=== PATIENT | female | born 1945 | race Caucasian/White ===

== ENCOUNTER 2018-03-22 12:38 | Observation (INO) | payer OTHER ==
--- NOTE | 2018-03-22 13:17 | ED PDOC ---
Arrival/HPI - General Chief Complaint: Trauma Time Seen by Provider: 03/22/18 13:08 Historian: Patient - History of Present Illness Narrative History of Present Illness (Text): 03/22/18 13:10 72 Year old female, whose PMH includes HTN, DM, anemia, and anxiety, who presents to the Emergency department complaining of multiple locations of musculoskeletal pain s/p trauma since 2 days ago. Patient reports tripping and falling landing on the left side of her body. She complaints of pain and bruises on the left side of face, pain on left side of rib cage, bruised right knee, and pain on right shoulder. Patient notes taking Aspirin daily and denies loss of consciousness. Patient denies any headache, chest pain, fever, vision changes, head trauma, neck pain. Denies hempotysis. Denies lightheadedness. Denies dizziness. Reports pain with deep breaths. PMD: Dr Cabezas 03/22/18 17:12 Time/Duration: < week Symptom Onset: Sudden Symptom Course: Unchanged Context: Tripped Past Medical History - Provider Review Nursing Documentation Reviewed: Yes - Infectious Disease Hx of Infectious Diseases: None - Cardiac Hx Cardiac Disorders: Yes Hx Hypertension: Yes - Pulmonary Hx Respiratory Disorders: No - Neurological Hx Neurological Disorder: No - HEENT Hx HEENT Disorder: Yes - Renal Other/Comment: Wears glasses - Endocrine/Metabolic Hx Endocrine Disorders: Yes Hx Diabetes Mellitus Type 2: Yes - Hematological/Oncological Hx Blood Disorders: Yes Hx Anemia: Yes - Integumentary Hx Dermatological Disorder: No - Musculoskeletal/Rheumatological Hx Musculoskeletal Disorders: No - Gastrointestinal Hx Gastrointestinal Disorders: No - Genitourinary/Gynecological Hx Genitourinary Disorders: No - Psychiatric Hx Psychophysiologic Disorder: Yes Hx Anxiety: Yes Hx Depression: Yes Hx Substance Use: No Family/Social History - Physician Review Nursing Documentation Reviewed: Yes Family/Social History: Unknown Family HX Smoking Status: Never Smoked Hx Alcohol Use: No Hx Substance Use: No Allergies/Home Meds Allergies/Adverse Reactions: Allergies No Known Allergies Allergy (Verified 03/22/18 12:47) Home Medications: Home Meds Medication Instructions Recorded Confirmed Aspirin [Aspirin Chewable] 81 mg PO DAILY 03/22/18 03/22/18 Carvedilol [Coreg] 25 mg PO BID 03/22/18 03/22/18 Enalapril/Hydrochlorothiazide 1 tab PO BID 03/22/18 03/22/18 [Enalapril-Hctz 5-12.5 mg Tab] GlipiZIDE [Glucotrol] 10 mg PO BID 03/22/18 03/22/18 Insulin Lispro [humALOG] 10 units INJ BID 03/22/18 03/22/18 MetFORMIN [glucoPHAGE] 1,000 mg PO BID 03/22/18 03/22/18 Simvastatin [Simvastatin] 10 mg PO HS 03/22/18 03/22/18 amLODIPine [Norvasc] 10 mg PO DAILY 03/22/18 03/22/18 Review of Systems - Review of Systems Constitutional: absent: Fevers Eyes: absent: Vision Changes Respiratory: Other (pain with deep breaths). absent: SOB, Cough Cardiovascular: Chest Pain (left sided chest/rib pain). absent: Edema, Calf Pain, JIANG Gastrointestinal: absent: Abdominal Pain, Nausea, Vomiting Genitourinary Female: absent: Dysuria Musculoskeletal: Other (pain on right shoulder, right knee, left side of face, left side of rib cage with ecchymosis). absent: Neck Pain Skin: absent: Rash Neurological: absent: Headache, Dizziness, Focal Weakness, Speech Changes Endocrine: absent: Diaphoresis Hemo/Lymphatic: absent: Easy Bleeding Physical Exam - Physical Exam Narrative Physical Exam (Text): 03/22/18 Head: Patient with ecchymosis to left orbit, abrasion to left lateral orbit, no bleeding, there is tenderness to left lateral orbit. Normocephalic. Eyes: PERRL. EOMI. Conjunctivae are not pale. Visual acuity and hastings intact. No proptosis. No jacobs with eye movements. No entrapment. ENT: Mucous membranes are moist and intact. Oropharynx is clear and symmetric. No nasal tenderness. No acute dental trauma. Neck: Supple. Full ROM. No JVD. No lymphadenopathy. No midline tenderness. Cardiovascular: Irregular rate and rhythm. No pathologic murmurs. Pulmonary/Chest: No evidence of respiratory distress. Clear to auscultation bilaterally. No wheezing, rales or rhonchi. Diffuse pain on palpation of left lower anterior rib cage, no crepitus or deformity. Abdominal: Soft and non-distended. There is no tenderness. No rebound, guarding, or rigidity. No organomegaly. Good bowel sounds. Back: No CVA tenderness. No midline tenderness. Extremities: Mild pain on palpation of right humerus region, no shoulder or elbow pain with palpation or range of motion. No clavicular pain. No left upper extremity pain. No hip pain with rom bilaterally. There is ecchymosis noted to right knee but no deformity, there is full range of motion of RIGHT knee with no pain. Left knee is tender anteriorly but NO swelling or ecchymosis noted to left knee. Skin: Skin is warm and dry. No petechiae. No purpura. No lacerations. Neurological: Alert, awake, and oriented. No facial droop. No slurred speech. Ambulatory. Motor and sensory exam intact. Psychiatric: Good eye contact. Normal interaction, affect, and behavior. 03/22/18 17:14 Vital Signs Reviewed: Yes Vital Signs Temp Pulse Resp BP Pulse Ox 03/22/18 17:00 86 18 116/65 98 03/22/18 15:18 91 H 18 118/69 98 03/22/18 13:03 98.2 F 105 H 18 121/75 98 Temperature: Afebrile Blood Pressure: Normal Pulse: Tachycardic Respiratory Rate: Normal Appearance: Positive for: Well-Appearing, Non-Toxic, Uncomfortable Pain Distress: Mild Mental Status: Positive for: Alert and Oriented X 3 Medical Decision Making ED Course and Treatment: Patient is present with friend. She reportedly fell two days ago. She lives by herself she states. She states she tripped and fell, landing on her left side. On exam, there is orbital ecchymosis but no acute visual symptoms, no signs of entrapment on exam or on CT. Patient also noted to have palpable left rib pain, but no crepitus, no pneumothorax or displaced fracture noted on chest xray as per radiologist. Not hypoxic. EKG reveals atrial fibrillation, rate controlled on monitor. She states that she is NOT aware that she has had this in the past. Attempt made to contact her PMD DR. Cabezas. Patient became more sob and tachypneic at 1630. On exam, saturations 99% although reports sob. Breath sounds were clear bilaterally. Heart rate 90-100. Plan to admit for possible new onset atrial fibrillation, rib injury, dyspnea. Currently neurologically intact. No signs of active bleeding. Will admit to oncall physician, consult cardiology and pulmonology. Dr. Hillary Alfaro, oncall, accepts admission, will consult Dr. Dunaway. Heparin ordered for atrial fibrillation. No active bleeding noted. CT chest, no pneumothorax noted. 03/22/18 18:18 - Lab Interpretations Lab Results: 03/22/18 13:30 03/22/18 13:30 Lab Results 03/22/18 13:30: NT-Pro-B Natriuret Pep 940 H 03/22/18 13:30: Sodium 139, Potassium 4.3, Chloride 103, Carbon Dioxide 24, Anion Gap 17, BUN 17, Creatinine 0.9, Est GFR ( Amer) > 60, Est GFR (Non- Af Amer) > 60, Random Glucose 142 H, Calcium 9.5, Total Bilirubin 0.3, AST 23, ALT 23, Alkaline Phosphatase 57, Lactate Dehydrogenase 540, Total Creatine Kinase 112, Troponin I < 0.01, Total Protein 7.1, Albumin 4.3, Globulin 2.8, Albumin/Globulin Ratio 1.5 03/22/18 13:30: PT 12.3, INR 1.08, APTT 34.1 03/22/18 13:30: WBC 8.4, RBC 3.79, Hgb 10.3 L, Hct 31.9 L, MCV 84.2, MCH 27.2, MCHC 32.3, RDW 14.0, Plt Count 346, MPV 8.7, Gran % 69.2 H, Lymph % (Auto) 23.8 , [place] % (Auto) 4.8, Eos % (Auto) 2.0, Baso % (Auto) 0.2, Gran # 5.80, Lymph # ( Auto) 2.0, [place] # (Auto) 0.4, Eos # (Auto) 0.2, Baso # (Auto) 0.02 I have reviewed the lab results: Yes - RAD Interpretation Radiology Orders: 03/22/18 13:18 HEAD W/O CONTRAST [CT] Stat MAXILLOFACIAL W/O CONTRAST [CT] Stat 03/22/18 13:19 HUMERUS RIGHT [RAD] Stat KNEE LEFT 2 VIEWS (AP & LAT) [RAD] Stat RIBS LEFT & PA CHEST [RAD] Stat 03/22/18 15:08 CHEST W/O CONTRAST [CT] Stat Yarn Wrapper: Radiologist - EKG Interpretation EKG Interpretation (Text): EKG at 15:49 atrial fibrillation rate of 79, anterior infarct age undetermined Interpreted by ED Physician: Yes Type: 12 lead EKG - Medication Orders Current Medication Orders: Heparin Sodium/Sodium Chloride (Heparin 69469 Units/250ml 1/2 Normal Saline) 25 ,000 units in 250 mls @ 13.651 mls/hr IV .[id number] PRN; Protocol; 18 UNITS/KG/HR PRN Reason: ADJUST RATE PER PROTOCOL Discontinued Medications Heparin Sodium (Porcine) (Heparin) 4,000 units IV ONCE ONE PRN Reason: Protocol Stop: 03/22/18 17:59 - Scribe Statement The provider has reviewed the documentation as recorded by the Yoli De Los Santos Provider Scribe Attestation: All medical record entries made by the Scribe were at my direction and personally dictated by me. I have reviewed the chart and agree that the record accurately reflects my personal performance of the history, physical exam, medical decision making, and the department course for this patient. I have also personally directed, reviewed, and agree with the discharge instructions and disposition. Disposition/Present on Arrival - Present on Arrival Any Indicators Present on Arrival: No History of DVT/PE: No History of Uncontrolled Diabetes: No Urinary Catheter: No History of Decub. Ulcer: No History Surgical Site Infection Following: None - Disposition Have Diagnosis and Disposition been Completed?: Yes Diagnosis: Atrial fibrillation, Orbital contusion, Rib contusion, Knee contusion, Dyspnea Disposition: HOSPITALIZED Disposition Time: 16:45 Patient Plan: Admission, Telemetry Patient Problems: Current Active Problems Problem Status Onset Atrial fibrillation Acute Dyspnea Acute Knee contusion Acute Orbital contusion Acute Rib contusion Acute Condition: FAIR Forms: [employer] (Kyrgyz)
[2018-03-22 13:53] LABS: BASO # 0.02 K/mm3 (0.0-2.0); BASO % 0.2 % (0.0-3.0); EOS # 0.2 (0.0-0.7); GRAN # 5.8 (1.4-6.5); GRAN % 69.2 % (50.0-68.0); HEMOGLOBIN 10.3 g/dL (12.0-16.0); LYMPH % 23.8 % (22.0-35.0); MEAN CELL VOLUME 84.2 fl (80.0-105.0); MEAN CORPUSCULAR HEMOGLOBIN 27.2 pg (25.0-35.0); MEAN CORPUSCULAR HGB CONC 32.3 g/dl (31.0-37.0); MEAN PLATELET VOLUME 8.7 fl (7.0-11.0); MONO # 0.4 (0.1-0.6); MONO % 4.8 % (1.0-6.0); RBC 3.79 10^6/uL (3.5-6.1); WHITE BLOOD COUNT 8.4 10^3/ul (4.5-11.0)
[2018-03-22 13:58] LABS: ALB/GLOB RATIO 1.5 (1.1-1.8); ALBUMIN 4.3 g/dL (3.0-4.8); CALCIUM 9.5 mg/dL (8.4-10.5); GFR AFRICAN-AMERICAN > 60; GFR NON-AFRICAN AMERICAN > 60; INR 1.08 (0.93-1.08); PARTIAL THROMBOPLASTIN TIME 34.1 Seconds (25.1-36.5); PROTHROMBIN TIME 12.3 SECONDS (9.4-12.5)
[2018-03-22 14:01] LABS: ALT/SGPT 23 U/L (7-56); AST/SGOT 23 U/L (14-36); BLOOD UREA NITROGEN 17 mg/dL (7-21)
[2018-03-22 14:09] LABS: TROPONIN I < 0.01 ng/mL
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
--- NOTE | 2018-03-22 14:36 | CT ---
PROCEDURE: CT MAXILLOFACIAL BONES WITHOUT CONTRAST HISTORY: left orbital tenderness/ecchymosis COMPARISON: None TECHNIQUE: Contiguous axial CT images of the maxillofacial bones were obtained. Coronal and sagittal reformats were generated. Radiation dose: Total exam DLP = 697 mGy-cm. This CT exam was performed using one or more of the following dose reduction techniques: Automated exposure control, adjustment of the mA and/or kV according to patient size, and/or use of iterative reconstruction technique. FINDINGS: NASAL BONES: Unremarkable. ORBITS: There is some soft tissue thickening anterior to the left eye. There is no postseptal inflammation PARANASAL SINUSES/ MASTOIDS: Clear. MAXILLA: Unremarkable. MANDIBLE/ TEMPOROMANDIBULAR JOINTS: Unremarkable. SKULL BASE: Unremarkable. TEMPORAL BONES: Middle ears and mastoid grossly unremarkable. OTHER FINDINGS: None. IMPRESSION: Minimal preseptal soft tissue swelling left orbit. No evidence of fracture.
--- NOTE | 2018-03-22 15:14 | CARD ---
APPROVED REPORT EKG Measurement Heart [id number] <Conclusion> Atrial fibrillation Cannot rule out Anterior infarct, age undetermined Abnormal ECG
--- NOTE | 2018-03-22 15:22 | RAD ---
PROCEDURE: Left Knee Radiographs. HISTORY: Pain. COMPARISON: None. FINDINGS: BONES: Normal. No fracture. JOINTS: Normal. No osteoarthritis. JOINT EFFUSION: None. OTHER FINDINGS: None. IMPRESSION: Normal radiographs of the left knee.
--- NOTE | 2018-03-22 15:23 | RAD ---
PROCEDURE: Radiographs of the Chest and Left Ribs. HISTORY: left rib pain after fall COMPARISON: None available. TECHNIQUE: Frontal radiograph of the chest and multiple oblique radiographs of the left ribs were obtained. FINDINGS: LEFT RIBS: No fracture or focal lesion visualized. LUNGS: Clear. PLEURA: No pneumothorax or pleural fluid. CARDIOVASCULAR: Normal sized heart. No pulmonary vascular congestion. OTHER FINDINGS: None. IMPRESSION: Unremarkable radiographs of the chest and left ribs. No left rib fracture.
--- NOTE | 2018-03-22 15:23 | RAD ---
PROCEDURE: Radiographs of the right humerus. HISTORY: fall COMPARISON: None. FINDINGS: BONES: Normal. No fracture or focal lesion. SOFT TISSUES: Normal. OTHER FINDINGS: None. IMPRESSION: Normal radiographs of right humerus.
--- NOTE | 2018-03-22 17:50 | CT ---
PROCEDURE: CT Chest without contrast HISTORY: ? rib fx with effusion COMPARISON: None. TECHNIQUE: Contiguous axial images were obtained through the chest without intravenous contrast enhancement. Sagittal and coronal reconstructions were performed. Radiation dose (DLP): 583.10 mGy-cm. This CT exam was performed using one or more of the following dose reduction techniques: Automated exposure control, adjustment of the mA and/or kV according to patient size, and/or use of iterative reconstruction technique. FINDINGS: LUNGS: The lungs are well inflated. There is mild interlobular septal thickening and patchy ground-glass attenuation in the lungs. MEDIASTINUM: The aorta is not dilated. There is moderate cardiomegaly and trace pericardial effusion. There atherosclerotic calcifications in the coronary arteries. No pathologic lymphadenopathy. PLEURA: No pleural fluid. No pneumothorax. BONES: No acute rib fracture. No destructive lesion. UPPER ABDOMEN: Grossly unremarkable. OTHER FINDINGS: None. IMPRESSION: No acute rib fracture, pleural effusion or pneumothorax. Moderate cardiomegaly, trace pericardial effusion, mild interstitial edema and presumable mild alveolar pulmonary edema.
[2018-03-22] MEDS: Heparin25000 units/250ml 1/2NS 25,000 UNITS/250 ML BAG IV PRN (19:04)
--- NOTE | 2018-03-22 20:31 | CARD ---
APPROVED REPORT EKG Measurement Heart [id number] <Conclusion> Atrial fibrillation Abnormal ECG
[2018-03-22] MEDS: Insulin Reg-MEDIUM-Coverage SC SCH (23:18)
[2018-03-23 00:25] VITALS: BMI 29.0
[2018-03-23 06:38] LABS: HEMOGLOBIN 9.5 g/dL (12.0-16.0); MEAN CELL VOLUME 83.4 fl (80.0-105.0); MEAN CORPUSCULAR HEMOGLOBIN 26.7 pg (25.0-35.0); MEAN PLATELET VOLUME 8.7 fl (7.0-11.0); RBC 3.56 10^6/uL (3.5-6.1); RED CELL DISTRIBUTION WIDTH 13.8 % (11.5-14.5); WHITE BLOOD COUNT 6.9 10^3/ul (4.5-11.0)
[2018-03-23 06:43] LABS: ALB/GLOB RATIO 1.3 (1.1-1.8); ALBUMIN 3.7 g/dL (3.0-4.8); ALT/SGPT 28 U/L (7-56); AST/SGOT 27 U/L (14-36); BLOOD UREA NITROGEN 13 mg/dL (7-21); GFR AFRICAN-AMERICAN > 60; GFR NON-AFRICAN AMERICAN > 60
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
[2018-03-23] MEDS ORDERED: Potassium Chloride 20 mEq ER Tab PO ONE (07:45)
[2018-03-23] MEDS: Insulin Reg-MEDIUM-Coverage SC SCH ×4 (08:28→22:23)
--- NOTE | 2018-03-23 09:48 | CON ---
DATE: 03/23/2018 CARDIOLOGY CONSULTATION HISTORY OF PRESENT ILLNESS: The patient is a 72-year-old woman with a history of hypertension and diabetes mellitus who presents after a fall two days ago. No loss of consciousness noted. The patient complains of diffuse body aches. In the emergency room, she was found to be in atrial fibrillation. She denies previous cardiac history and has never been evaluated by a joiner helper. PAST MEDICAL HISTORY: Includes diabetes mellitus and hypertension. SOCIAL HISTORY: The patient does not smoke. REVIEW OF SYSTEMS: A 14-point review of systems is reviewed in detail. No cardiac symptomatology is noted. She does complain of incontinence of her urine. PHYSICAL EXAMINATION VITAL SIGNS: Stable. Heart rate is atrial fibrillation in the 80s. NECK: Negative JVD. LUNGS: Without rales. HEART: Reveals S1 and S2. EXTREMITIES: Without edema. EKG shows atrial fibrillation with nonspecific ST-T changes. LABORATORY DATA: Troponins are negative. IMPRESSION: 1. New-onset atrial fibrillation. 2. Status post fall. 3. Diabetes mellitus. 4. Hypertension. PLAN: Given these findings, we will start the patient on sotalol. We will review her x-rays before starting the patient on anticoagulation given her recent trauma. Thyroid functions have been ordered. Mihir Dunaway MD
[2018-03-23] MEDS ORDERED: [UNRECOGNIZED DRUG - OTHER] PO SCH (10:00)
[2018-03-23] MEDS ORDERED: HYDROCHLOROTHIAZIDE PO SCH (10:00)
[2018-03-23] MEDS ORDERED: ENALAPRIL PO SCH (10:00)
--- NOTE | 2018-03-23 10:08 | PN ---
DATE: 03/23/2018 SUBJECTIVE: I saw her resting comfortably this morning in bed. She is very nasty. She was nasty yesterday, she is still nasty. She is demanding things. I tried to calm her down. I am going to replace the potassium. I am waiting for Dr. Dunaway, the language arts teacher to come in. She has AFib, rate controlled. She is on Lipitor, Lasix, insulin coverage. She is on heparin drip, Glucotrol, Elavil, Coreg and aspirin. PHYSICAL EXAMINATION: VITAL SIGNS: Temperature 98.1, 91 pulse, 152/80 blood pressure, 20 respiratory rate, 100% O2 sat on room air. HEENT: Head is atraumatic, normocephalic. HEART: Irregular rate in the 80s. LUNGS: Decreased breath sounds, but clear. ABDOMEN: Soft. EXTREMITIES: No edema. She has got bruises from the fall, but nothing is broken. LABORATORY DATA: She has 143 sodium; potassium 3.5, I gave her potassium; BUN 13, creatinine 0.7. GFR is greater than 60. Sugar is 163, coming down. Calcium is 9, total bilirubin is 0.3, AST is 27, ALT is 28, alkaline phosphatase 57. All troponins are less than 0.01. BNP was 940. I put her on Lasix 20 IV daily, 6.5 albumin. She has a 6.9 white count, 9.5 hemoglobin, 29.7 hematocrit with 323 platelets. The EKG showed AFib, rate of 79. I will discuss with Dr. Dunaway after he sees her. She is on Observation right now. We will continue with aggressive treatment and care on Ophelia Braswell. I will wait for Physical Therapy to see her. She was here for falls. Now she has new-onset atrial fibrillation. Daniel Alfaro DO
[2018-03-23] MEDS: Insulin Lispro 1 UNITS/0.01 ML SC SCH ×2 (10:30→18:13)
[2018-03-23 11:20] LABS: INR 1.14 (0.93-1.08); PARTIAL THROMBOPLASTIN TIME 106.7 Seconds (25.1-36.5); PROTHROMBIN TIME 13.1 SECONDS (9.4-12.5)
--- NOTE | 2018-03-23 15:58 | CARD ---
APPROVED REPORT EXAM: Two-dimensional and M-mode echocardiogram with Doppler and color Doppler. INDICATION Atrial Fibrillation 2D DIMENSIONS Left Atrium (2D)5.7 (1.6-4.0cm)IVSd1.0 (0.7-1.1cm) LVDd4.9 (3.9-5.9cm)PWd1.3 (0.7-1.1cm) LVDs3.5 (2.5-4.0cm)FS (%) 29.8 % LVEF (%)56.6 (>50%) M-Mode DIMENSIONS Aortic Root3.00 (2.2-3.7cm)Aortic Cusp Exc.1.60 (1.5-2.0cm) Aortic Valve AoV Peak Ikmbrdvg519.0cm/Roverto Peak GR.9mmHg Mitral Valve E/A ratio0.0 TDI E/Lateral E'0.0E/Medial E'0.0 Pulmonary Valve PV Peak Vlfedlby63.1cm/sPV Peak Grad.2mmHg Tricuspid Valve TR Peak Iolgdiwc860fr/sRAP [id number] Peak Gr.34mmHg [id number] LEFT VENTRICLE The left ventricle is normal size. There is normal left ventricular wall thickness. The left ventricular function is normal. The left ventricular ejection fraction is within the normal range. There is normal LV segmental wall motion. RIGHT VENTRICLE The right ventricle is normal size. There is normal right ventricular wall thickness. The right ventricular systolic function is normal. ATRIA The left atrium is moderately dilated. The right atrium is mildly dilated. The atrial septum is aneurysmal. AORTIC VALVE The aortic valve is mildly thickened. No aortic regurgitation is present. There is no aortic valvular stenosis. MITRAL VALVE The mitral valve is moderately thickened. Mitral regurgitation is mild. There is no mitral valve stenosis. TRICUSPID VALVE The tricuspid valve is normal in structure. There is mild tricuspid regurgitation. There is mild pulmonary hypertension. PULMONIC VALVE There is trace to mild pulmonic valvular regurgitation. GREAT VESSELS The aortic root is normal in size. PERICARDIAL EFFUSION There is no pericardial effusion. <Conclusion> The left ventricle is normal size. There is normal left ventricular wall thickness. The left ventricular function is normal. The left ventricular ejection fraction is within the normal range. There is normal LV segmental wall motion. Mitral regurgitation is mild. There is mild tricuspid regurgitation. There is mild pulmonary hypertension.
[2018-03-23] MEDS: Heparin25000 units/250ml 1/2NS 25,000 UNITS/250 ML BAG IV PRN (21:01)
[2018-03-24 07:07] LABS: HEMOGLOBIN 10.3 g/dL (12.0-16.0); MEAN CELL VOLUME 83.7 fl (80.0-105.0); MEAN CORPUSCULAR HEMOGLOBIN 26.7 pg (25.0-35.0); MEAN CORPUSCULAR HGB CONC 31.9 g/dl (31.0-37.0); MEAN PLATELET VOLUME 8.9 fl (7.0-11.0); RBC 3.86 10^6/uL (3.5-6.1); WHITE BLOOD COUNT 10.1 10^3/ul (4.5-11.0)
[2018-03-24 07:42] LABS: ALB/GLOB RATIO 1.4 (1.1-1.8); ALBUMIN 3.9 g/dL (3.0-4.8); ALT/SGPT 25 U/L (7-56); AST/SGOT 20 U/L (14-36); BLOOD UREA NITROGEN 19 mg/dL (7-21); CALCIUM 9.2 mg/dL (8.4-10.5); GFR AFRICAN-AMERICAN > 60; GFR NON-AFRICAN AMERICAN > 60
[2018-03-24] MEDS: Insulin Reg-MEDIUM-Coverage SC SCH ×2 (08:23→11:56)
[2018-03-24 08:31] LABS: T4 10.1 ug/dL (5.5-11.0)
--- NOTE | 2018-03-24 08:40 | PN ---
DATE: 03/24/2018 CARDIOLOGY FOLLOWUP SUBJECTIVE: The patient is comfortable in bed. PHYSICAL EXAMINATION: VITAL SIGNS: Blood pressure is 128/73, the heart rate is in the 90s, atrial fibrillation. NECK: Negative JVD. LUNGS: Without rales. HEART: Reveals S1, S2. EXTREMITIES: Without edema. IMPRESSION: 1. Atrial fibrillation. 2. Hypertension. 3. Diabetes mellitus. 4. Dilated left atrium on echocardiogram. Given these findings, the patient will need to be started on Eliquis residential. It is discussed with the patient the risks, benefits of anticoagulation. From a cardiac perspective, the patient can be discharged after ambulation with physical therapy. We will arrange for an outpatient stress test to rule out CAD. Mihir Dunaway MD
[2018-03-24] MEDS ORDERED: Lidocaine 5% Patch TD ONE (09:00)
[2018-03-24] MEDS: Insulin Lispro 1 UNITS/0.01 ML SC SCH (09:55)
[2018-03-24 10:56] VITALS: O2SAT 100
[2018-03-24 11:55] VITALS: BP 125/68; PULSE 78; RESP 18; TEMP 98.2
--- NOTE | 2018-03-25 07:42 | DS ---
HISTORY OF PRESENT ILLNESS: I had a long discussion with Dr. Dunaway, the power tool repair technician, this morning. He is putting her on the sotalol and the Eliquis. She also has aspirin, Elavil, Glucophage, Glucotrol, the Humalog 10 units subcu b.i.d., potassium, Lasix, Lidoderm patch, Lipitor and Tylenol. PHYSICAL EXAMINATION: VITAL SIGNS: She has a 98.6 temp, 103 pulse, 128/73 blood pressure, 18 respiratory rate, 99% O2 sat. HEENT: Head is very traumatic with bruising that are healing. HEART: Irregular rate in the 80s. It was in the 100s. It goes up and down. LUNGS: Decreased breath sounds, but clear. ABDOMEN: Soft, nontender, positive bowel sounds. MUSCULOSKELETAL: The left side of the ribs are sore. The x-rays were negative. She has a Lidoderm patch to put over the ribs. EXTREMITIES: Have no edema. LABORATORY DATA: She has a 10.1 white count, 10.3 hemoglobin, 32.3 hematocrit with 377 platelets. She has a 141 sodium, potassium 3.9, BUN 19, creatinine 0.9, GFR is greater than 60, sugar is 159, is 9.2, total bili is 0.1, AST is 20, ALT is 25, alk phos 61, total protein 6.8. ASSESSMENT AND PLAN: We are discharging her home today. I called the prescriptions [facility] in [place] and she should follow up in 1 week with either me or her primary care doctor. Jamie Braswell who had atrial fibrillation, fall, contusions, and she has had diabetes. Daniel Alfaro DO MTDLupillo
== END 2018-03-24 14:35 | disposition home or self-care (01) ==
LOC: ED 12:38 → ERH 17:25 → 2RNO 21:36
PROVIDERS: ADMIT Family Medicine; ATTEND Family Medicine
DX: I48.91 Unspecified atrial fibrillation (principal); E11.9 Type 2 diabetes mellitus without complications; I10 Essential (primary) hypertension; D64.9 Anemia, unspecified; S05.10XA Contusion of eyeball and orbital tissues, unspecified eye, initial encounter; S20.219A Contusion of unspecified front wall of thorax, initial encounter; S80.02XA Contusion of left knee, initial encounter; W01.0XXA Fall on same level from slipping, tripping and stumbling without subsequent striking against object, initial encounter; Z79.82 Long term (current) use of aspirin; F41.9 Anxiety disorder, unspecified; F32.89 Other specified depressive episodes
CPT/HCPCS: 36415; 70450; 70486; 71101; 71250; 73060; 73560; 80053; 82550; 82948; 83615; 83880; 84436; 84443; 84484; 85025; 85027; 85610; 85730; 93005; 93306; 96374; 96375; 99285; G0378; J1644; J1940

== ENCOUNTER 2018-06-01 16:20 | Observation (INO) | payer OTHER ==
[2018-06-01 16:21] VITALS: BMI 29.2
[2018-06-01] MEDS ORDERED: Dextrose 50% SYRINGE Inj (50 ml) ONE (16:26)
[2018-06-01] MEDS ORDERED: Dextrose 50% SYRINGE Inj (50 ml) IVP STA (16:47)
--- NOTE | 2018-06-01 16:53 | ED PDOC ---
Arrival/HPI - History of Present Illness Time/Duration: Prior to Arrival Symptom Onset: Sudden Symptom Course: Unchanged Quality: Aching Severity Level: 4 Context: Walking <Flako Briceno - Last Filed: 06/01/18 18:50> <Ang Moy - Last Filed: 06/01/18 19:01> - General Chief Complaint: Syncope Time Seen by Provider: 06/01/18 16:25 - History of Present Illness Narrative History of Present Illness (Text): 06/01/18 16:51 Patient is a 73 year old female with PMH of DM2 (on metformin, glipizide, home insulin), Afib (on eliquis), HTN, and CVA who presents to ED following a syncopal episode at her home. Patient states that she does not remember falling and was walking around home when this occurred. She does not recall whether she hit her head, and her main complaint at this time is pain in her left knee. She states that she fell on to carpet in her home and was not able to get up when she woke up. She was also incontinent of urine after passing out. She felt weak and unable to stand up so she crawled to her neighbor's apartment for help who then called EMS. Prior to the syncopal episode, she had a doctor's appointment and so was unable to eat anything for lunch. Her last meal was around 0800 this morning (9 hoiurs ago). Currently, she is a/o x 3 and denies fever, chills, dizziness, blurred vision, HEMPHILL, CP, SOB, or peripheral numbness/tingling. (Flako Briceno) Past Medical History - Provider Review Nursing Documentation Reviewed: Yes - Travel History Have you recently traveled outside [place] w/in the past 3 mons?: No - Infectious Disease Hx of Infectious Diseases: None - Cardiac Hx Cardiac Disorders: Yes Hx Atrial Fibrillation: Yes Hx Hypertension: Yes - Pulmonary Hx Respiratory Disorders: No Other/Comment: dyspnea on exertion - Neurological Hx Neurological Disorder: No - HEENT Hx HEENT Disorder: Yes Hx Cataracts: Yes - Renal Hx Renal Disorder: No - Endocrine/Metabolic Hx Endocrine Disorders: Yes Hx Diabetes Mellitus Type 1: Yes (insulin dep) - Hematological/Oncological Hx Blood Disorders: Yes Hx Anemia: Yes - Integumentary Hx Dermatological Disorder: No - Musculoskeletal/Rheumatological Hx Musculoskeletal Disorders: Yes Hx Arthritis: Yes Hx Falls: No - Gastrointestinal Hx Gastrointestinal Disorders: Yes (abd pain) Hx Hemorrhoids: Yes - Genitourinary/Gynecological Hx Genitourinary Disorders: No - Psychiatric Hx Psychophysiologic Disorder: No Hx Substance Use: No - Surgical History Hx Cardiac Catheterization: Yes Other/Comment: wisdom teeth exctraction 1975 - Anesthesia Hx Anesthesia: Yes Hx Anesthesia Reactions: No Hx Malignant Hyperthermia: No <Flako Briceno - Last Filed: 06/01/18 18:50> Family/Social History - Physician Review Nursing Documentation Reviewed: Yes Family/Social History: Hypertension (father and mother), CAD/[place] (father and mother) Smoking Status: Never Smoked Hx Alcohol Use: No Hx Substance Use: No <Flako Briceno - Last Filed: 06/01/18 18:50> Allergies/Home Meds <Flako Briceno - Last Filed: 06/01/18 18:50> <Ang Moy - Last Filed: 06/01/18 19:01> Allergies/Adverse Reactions: Allergies No Known Allergies Allergy (Verified 01/27/18 21:13) Home Medications: Home Meds Medication Instructions Recorded Confirmed Amitriptyline HCl 75 mg PO HS 01/27/18 01/27/18 Insulin Glargine, Recombina 10 unit SC DAILY 01/27/18 01/27/18 [Lantus] Vitamin A 8,000 unit PO DAILY 01/27/18 01/27/18 Aspirin [Aspirin Chewable] 81 mg PO DAILY 03/22/18 03/22/18 Carvedilol [Coreg] 25 mg PO BID 03/22/18 03/22/18 Enalapril/Hydrochlorothiazide 1 tab PO BID 03/22/18 03/22/18 [Enalapril-Hctz 5-12.5 mg Tab] GlipiZIDE [Glucotrol] 10 mg PO BID 03/22/18 03/22/18 Insulin Lispro [humALOG] 10 units INJ BID 03/22/18 03/22/18 MetFORMIN [glucoPHAGE] 1,000 mg PO BID 03/22/18 03/22/18 Simvastatin [Simvastatin] 10 mg PO HS 03/22/18 03/22/18 amLODIPine [Norvasc] 10 mg PO DAILY 03/22/18 03/22/18 Review of Systems - Physician Review All systems were reviewed & negative as marked: Yes - Review of Systems Constitutional: absent: Fatigue, Fevers Eyes: absent: Vision Changes, Photophobia ENT: absent: Hearing Changes, Sore Throat, Rhinorrhea Respiratory: absent: SOB, Cough Cardiovascular: Syncope. absent: Chest Pain, JIANG Gastrointestinal: absent: Abdominal Pain, Nausea, Vomiting Genitourinary Female: Other (urinary incontinence). absent: Dysuria, Frequency Musculoskeletal: Other (left knee pain). absent: Arthralgias, Back Pain, Joint Swelling Skin: absent: Rash, Pruritis Neurological: absent: Headache, Dizziness, Speech Changes Endocrine: absent: Diaphoresis Hemo/Lymphatic: absent: Adenopathy Psychiatric: absent: Anxiety, Depression <Flako Briceno - Last Filed: 06/01/18 18:50> Physical Exam Vital Signs Reviewed: Yes Temperature: Afebrile Blood Pressure: Hypertensive (158/95) Pulse: Regular Respiratory Rate: Normal Appearance: Positive for: Non-Toxic, Comfortable Pain Distress: None Mental Status: Positive for: Alert and Oriented X 3 Finger Stick Blood Glucose: 54 - Systems Exam Head: Present: Atraumatic, Normocephalic Pupils: Present: PERRL Extroacular Muscles: Present: EOMI Conjunctiva: Present: Normal Ears: Present: Normal Mouth: Present: Moist Mucous Membranes Pharnyx: Present: Normal. No: ERYTHEMA, EXUDATE Nose (External): Present: Atraumatic Neck: Present: Normal Range of Motion. No: JVD Respiratory/Chest: Present: Clear to Auscultation. No: Wheezes, Rales, Rhonchi Cardiovascular: Present: Regular Rate and Rhythm, Normal S1, S2. No: Murmurs, Rub, Gallop Abdomen: No: Tenderness, Rebound, Guarding Back: Present: Normal Inspection Upper Extremity: Present: Normal Inspection. No: Cyanosis Lower Extremity: Present: Normal Inspection. No: Edema Neurological: Present: CN II-XII Intact, Speech Normal, Motor Func Grossly Intact, Normal Sensory Function Skin: Present: Warm, Dry Psychiatric: Present: Alert, Oriented x 3 <Flako Briceno - Last Filed: 06/01/18 18:50> Vital Signs Temp Pulse Resp BP Pulse Ox 06/01/18 16:21 98.1 F 91 H 18 158/95 H 98 Medical Decision Making - Transfer of Care Patient signed out to Dr:: Johnna <Flako Briceno - Last Filed: 06/01/18 18:50> - EKG Interpretation Interpreted by ED Physician: Yes Type: 12 lead EKG <Ang Moy - Last Filed: 06/01/18 19:01> ED Course and Treatment: 06/01/18 16:59 -Patient is presenting s/p syncopal episode with pain in left knee -Will get L knee xray along with CT head -CBC, CMP, UA, EKG -Patient admitted to not eating anything since 0800 this AM, fingerstick POC in ED was 56 -Amp of D50 given in ED upon arrival 06/01/18 18:39 -Patient refused CT head -Leukocytosis with banedemia noted, UA pending, CXR ordered 06/01/18 18:50 -CXR and knee xray without acute findings -Patient signed out to Dr. Oropeza (Flako Briceno) 06/01/18 Patient Seen With Resident: In agreement with resident note which contains more details about the patient. Patient was seen and evaluated with resident. Came up with plan and treatment together. 06/01/18 18:13 EKG shows Afib at 90 bpm. Q wave with less than 1mm elevation in lead III, which is similar to EKG on 03/22/18 . Interpreted by me. 06/01/18 18:14 Patient is refusing head CT because she didn't hit her head and doesn't have any headaches or pain. I explained risk to patient, which she understood and still refused. 06/01/18 18:59 UA negative for UTI. Troponin negative. CXR negative. WBC is elevated but no source of infection nor any fever so will recommend f/u WBC and observation. Patient's case discussed with Dr. Alfaro who will place on his service for Tele Obs for syncope. Consults requested for Cardiology Dr. Dunaway and Dr. Owens for Neurology. (Ang Moy) - Lab Interpretations Lab Results: 06/01/18 17:15 06/01/18 17:15 Lab Results 06/01/18 17:59: POC Glucose (mg/dL) 222 H 06/01/18 17:15: Sodium 142, Potassium 4.0, Chloride 103, Carbon Dioxide 24, Anion Gap 19, BUN 14, Creatinine 0.7, Est GFR ( Amer) > 60, Est GFR (Non- Af Amer) > 60, Random Glucose 207 H, Calcium 9.5, Magnesium 1.9, Total Bilirubin 0.4, AST 32, ALT 26, Alkaline Phosphatase 76, Total Protein 8.5 H, Albumin 4.8, Globulin 3.7, Albumin/Globulin Ratio 1.3 06/01/18 17:15: Urine Color Yellow, Urine Appearance Clear, Urine pH 7.5, Ur Specific [place] 1.020, Urine Protein 100 H, Urine Glucose (UA) 100 H, Urine Ketones Negative, Urine Blood Negative, Urine Nitrate Negative, Urine Bilirubin Negative, Urine Urobilinogen 0.2, Ur Leukocyte Esterase Negative, Urine RBC 0 - 2, Urine WBC 1 - 3, Ur Epithelial Cells 1 - 3, Amorphous Sediment Few, Urine Bacteria Many, Urine Other Uyeast 06/01/18 17:15: WBC 13.8 H D, RBC 4.96, Hgb 13.2 D, Hct 39.8, MCV 80.2 D, MCH 26.6, MCHC 33.2, RDW 14.7 H, Plt Count 414, MPV 8.8, Gran % 83.1 H, Lymph % ( Auto) 13.7 L, Crenshaw % (Auto) 2.7, Eos % (Auto) 0.3 L, Baso % (Auto) 0.2, Gran # 11.48 H, Lymph # (Auto) 1.9, Crenshaw # (Auto) 0.4, Eos # (Auto) 0.0, Baso # (Auto) 0.03 06/01/18 16:24: POC Glucose (mg/dL) 54 L - RAD Interpretation Radiology Orders: 06/01/18 16:46 KNEE LEFT 2 VIEWS (AP & LAT) [RAD] Stat 06/01/18 18:24 CXR [CHEST TWO VIEWS (PA/LAT)] [RAD] Stat - Medication Orders Current Medication Orders: Discontinued Medications Dextrose (Dextrose 50% Inj) 50 ml IVP STAT STA Stop: 06/01/18 16:48 Last Admin: 06/01/18 16:51 Dose: <Flako Briceno - Last Filed: 06/01/18 18:50> - Scribe Statement The provider has reviewed the documentation as recorded by the Scribe <Ang Moy - Last Filed: 06/01/18 19:01> - Scribe Statement Jeff Shauna Provider Scribe Attestation: All medical record entries made by the Scribe were at my direction and personally dictated by me. I have reviewed the chart and agree that the record accurately reflects my personal performance of the history, physical exam, medical decision making, and the department course for this patient. I have also personally directed, reviewed, and agree with the discharge instructions and disposition. (Ang Moy) Disposition/Present on Arrival - Present on Arrival Any Indicators Present on Arrival: Yes History of DVT/PE: No History of Uncontrolled Diabetes: Yes Urinary Catheter: No History of Decub. Ulcer: No History Surgical Site Infection Following: None - Disposition Have Diagnosis and Disposition been Completed?: Yes Disposition Time: 18:53 <Flako Briceno - Last Filed: 06/01/18 18:50> - Disposition Patient Plan: Observation <Ang Moy - Last Filed: 06/01/18 19:01> - Disposition Diagnosis: Fall, Neutrophilic leukocytosis, Syncope Disposition: HOSPITALIZED Patient Problems: Current Active Problems Problem Status Onset Fall Acute Neutrophilic leukocytosis Acute Condition: FAIR Discharge Instructions (ExitCare): Syncope (ED) Referrals: Bing Cabezas MD [Primary Care Provider] - Follow up with primary Forms: [employer] (Romansh)
[2018-06-01 18:20] LABS: ALB/GLOB RATIO 1.3 (1.1-1.8); ALBUMIN 4.8 g/dL (3.0-4.8); ALT/SGPT 26 U/L (7-56); AST/SGOT 32 U/L (14-36); BLOOD UREA NITROGEN 14 mg/dL (7-21); CALCIUM 9.5 mg/dL (8.4-10.5); GFR NON-AFRICAN AMERICAN > 60
[2018-06-01 18:21] LABS: BASO # 0.03 K/mm3 (0.0-2.0); BASO % 0.2 % (0.0-3.0); EOS % 0.3 % (1.5-5.0); GRAN # 11.48 (1.4-6.5); GRAN % 83.1 % (50.0-68.0); HEMOGLOBIN 13.2 g/dL (12.0-16.0); LYMPH # 1.9 (1.2-3.4); LYMPH % 13.7 % (22.0-35.0); MEAN CELL VOLUME 80.2 fl (80.0-105.0); MEAN CORPUSCULAR HEMOGLOBIN 26.6 pg (25.0-35.0); MEAN CORPUSCULAR HGB CONC 33.2 g/dl (31.0-37.0); MEAN PLATELET VOLUME 8.8 fl (7.0-11.0); MONO # 0.4 (0.1-0.6); MONO % 2.7 % (1.0-6.0); RBC 4.96 10^6/uL (3.5-6.1); RED CELL DISTRIBUTION WIDTH 14.7 % (11.5-14.5); WHITE BLOOD COUNT 13.8 10^3/ul (4.5-11.0)
[2018-06-01 18:38] LABS: PH,URINE 7.5 (4.7-8.0); URINE BILIRUBIN NEGATIVE (NEGATIVE); URINE BLOOD NEGATIVE (NEGATIVE); URINE GLUCOSE (UA) 100 mg/dL (NEGATIVE); URINE LEUKOCYTE ESTERASE NEGATIVE Leu/uL (NEGATIVE); URINE PROTEIN 100 mg/dL (<30 mg/dL); URINE UROBILINOGEN 0.2 E.U./dL (<1 E.U./dL)
[2018-06-01 18:47] LABS: URINE APPEARANCE CLEAR (CLEAR); URINE COLOR YELLOW (YELLOW)
[2018-06-01 18:50] LABS: URINE AMORPHOUS SEDIMENT FEW; URINE BACTERIA MANY (NEG); URINE RBC 0 - 2 /hpf (0-2)
[2018-06-01] MEDS ORDERED: Albuterol-Ipratrop 3 mg / 0.5 (3 ml) UD INH PRN (19:36)
--- NOTE | 2018-06-01 21:28 | CARD ---
APPROVED REPORT Date of service: 06/01/2018 EKG Measurement Heart [id number] <Conclusion> Atrial fibrillation Cannot rule out Inferior infarct, age undetermined Cannot rule out Anterior infarct, age undetermined Abnormal ECG
[2018-06-01] MEDS: Insulin Reg-MEDIUM-Coverage SC SCH (21:46)
[2018-06-01] MEDS ORDERED: ROSUVASTATIN CALCIUM 2.5 MG PO SCH (22:00)
[2018-06-01] MEDS ORDERED: AMITRIPTYLINE HCL 75 MG PO SCH (22:00)
[2018-06-02] MEDS: Pantoprazole 40 mg EC Tab PO SCH (05:03)
[2018-06-02 06:55] LABS: HEMOGLOBIN 10.9 g/dL (12.0-16.0); MEAN CELL VOLUME 80.1 fl (80.0-105.0); MEAN CORPUSCULAR HEMOGLOBIN 25.8 pg (25.0-35.0); MEAN CORPUSCULAR HGB CONC 32.2 g/dl (31.0-37.0); MEAN PLATELET VOLUME 8.8 fl (7.0-11.0); RBC 4.23 10^6/uL (3.5-6.1); RED CELL DISTRIBUTION WIDTH 14.9 % (11.5-14.5); WHITE BLOOD COUNT 8.8 10^3/ul (4.5-11.0)
[2018-06-02 07:19] LABS: ALB/GLOB RATIO 1.3 (1.1-1.8); ALBUMIN 3.8 g/dL (3.0-4.8); ALT/SGPT 20 U/L (7-56); AST/SGOT 24 U/L (14-36); BLOOD UREA NITROGEN 16 mg/dL (7-21); CALCIUM 9.2 mg/dL (8.4-10.5); GFR NON-AFRICAN AMERICAN > 60
[2018-06-02] MEDS: Budesonide 0.5 mg/2 ml Inhal Susp UD INH SCH ×2 (07:43→19:56)
[2018-06-02] MEDS: Insulin Reg-MEDIUM-Coverage SC SCH ×3 (07:58→17:03)
--- NOTE | 2018-06-02 09:37 | RAD ---
Date of service: 06/01/2018 PROCEDURE: Left Knee Radiographs. HISTORY: Pain. COMPARISON: None. FINDINGS: BONES: Normal. No fracture. JOINTS: Normal. No osteoarthritis. JOINT EFFUSION: None. OTHER FINDINGS: None. IMPRESSION: Normal radiographs of the left knee.
--- NOTE | 2018-06-02 09:38 | RAD ---
Date of service: 06/01/2018 HISTORY: hypoglycemia COMPARISON: No prior. FINDINGS: LUNGS: No active pulmonary disease. PLEURA: No significant pleural effusion identified, no pneumothorax apparent. CARDIOVASCULAR: Normal. OSSEOUS STRUCTURES: No significant abnormalities. VISUALIZED UPPER ABDOMEN: Normal. OTHER FINDINGS: None. IMPRESSION: No active disease.
[2018-06-02] MEDS: cefTRIAXone 1 gm 1 GM/100 ML BAG IVPB SCH (09:46)
--- NOTE | 2018-06-02 14:55 | CON ---
Copied To: Mihir Dunaway MD Attending MD: Mihir Dunaway MD DATE: 06/02/2018 HISTORY OF PRESENT ILLNESS: The patient is a 73-year-old woman with syncopal episode. The patient's past medical history includes diabetes mellitus, hypercholesterolemia as well as hypertension. She has chronic atrial fibrillation treated with anticoagulation which was stopped several days ago. She denies chest pain, denies shortness of breath. REVIEW OF SYSTEMS: Fraught with fatigue symptoms with no other cardiac symptomatology. The patient is very unaware of her own condition. PHYSICAL EXAMINATION: VITAL SIGNS: Blood pressure 130/88, heart rate is in the 90s, atrial fibrillation. Orthostatic measurements revealed no orthostatic blood pressure changes. NECK: Negative JVD. LUNGS: Without rales. HEART: S1, S2. EXTREMITIES: Without edema. Previous echocardiogram performed in 03/2018 revealed an ejection fraction of 56%. There was no aortic stenosis noted. There was mild pulmonary hypertension. LABORATORY DATA: Reveal the glucose is 257. BUN and creatinine are unremarkable. Hemoglobin is 10.9. IMPRESSION: 1. Syncope without an obvious cardiac cause. 2. No orthostatic changes on blood pressure measurements. 3. Fatigue. 4. Chronic atrial fibrillation. 5. Diabetes mellitus. 6. Hypertension. 7. Hypercholesterolemia. Given these findings, we may need to reduce her antihypertensive medications. There is no obvious cardiac cause of her syncope. We will monitor on telemetry for 24 hours. Mihir Dunaway MD
--- NOTE | 2018-06-02 16:43 | HP ---
Copied To: Daniel Alfaro DO Attending MD: Daniel Alfaro DO HISTORY OF PRESENT ILLNESS: I saw her this morning in her bed. She is a 73-year-old female who presents with syncopal episode. She does not remember what happened, she does not remember hitting her head, she does not remember she lost consciousness. She fell on the carpet, was not able to get up and she woke up. She was also incontinent of urine. After she passed out, she felt weak, called to the neighbor's apartment and called and got her here. PAST MEDICAL HISTORY: Atrial fibrillation, hypertension, dyspnea on exertion. She had cataract surgery, diabetes, anemia, arthritis, gastrointestinal disorders, abdominal pain, hemorrhoids, she had wisdom teeth extracted, cardiac cath. FAMILY HISTORY: Hypertension with her mother and father, CAD and DE in father and mother. SOCIAL HISTORY: Never smoked. No alcohol. No drugs. ALLERGIES: NO KNOWN DRUG ALLERGIES. MEDICATIONS: She is on amitriptyline, insulin, vitamin A, aspirin, Coreg, enalapril, hydrochlorothiazide, Glucotrol, insulin, Glucophage, simvastatin and Norvasc. REVIEW OF SYSTEMS: She is not fatigued. No fevers. No acute vision or hearing changes. No shortness of breath. No cough. She had a syncopal episode, but no chest pain. No shortness of breath. No palpitation. No abdominal pain, nausea, vomiting, or constipation. No problems urinating. She has left knee pain. She has arthralgias, I believe the x-ray of the knee was okay. No headaches, dizziness, or speech changes right now. No adenopathy. No depression. I understand they offered a CAT scan of the brain, which she refused. PHYSICAL EXAMINATION: GENERAL: She is nontoxic at this time, comfortable in bed. Alert and oriented x3. The blood sugar was low at 54 when she came into the Emergency Room. HEENT: Head is atraumatic, normocephalic. Extraocular muscles are intact. Pupils equal, reactive to light. Throat is moist. NECK: Supple. Normal range of motion. HEART: Regular rate. Normal S1 and S2. LUNGS: Decreased breath sounds. No wheezes. No rhonchi appreciated. ABDOMEN: Soft, nontender. Positive bowel sounds. No guarding. No rebound. No CVA tenderness. EXTREMITIES: She can move all four extremities although the knee hurts a little bit, that could be arthritis. No edema of the lower extremities. NEUROLOGIC: GCS is 15. Cranial nerves grossly intact. Speech is normal. Motor function grossly intact. Alert and oriented x3. LYMPHATICS: Thyroid midline. No palpable appreciable lymphadenopathy. LABORATORY DATA: Chest x-ray without acute findings. EKG showed atrial fibrillation. She refused CAT scan of the head. UA was negative for UTI. Troponin was negative. Chest x-ray negative. She had multiple tests. Urine with many bacteria, I do not know whether was negative. I am going to put her on Rocephin. She has 142 sodium, potassium 4, BUN 14, creatinine 0.7, GFR is greater than 60. Sugars are 207, 222, 249; I will put her back on her insulin. Calcium is 9.5, magnesium 1.9, total bili 0.4, AST is 32, ALT is 26, alk phos 76, albumin is 4.8. White count 13.8, hemoglobin 13.2, hematocrit 39.8, platelets of 414. Chest x-ray and knee x-ray, which that are pending. She has consults with Neurology and Cardiology. I will put her back on her medicine, make sure she gets the Rocephin and we will watch her. She has been on observation. We will see if we can get an MRI of the brain and she will let us do that. We will see what Cardio and Neuro has to say. She is here for syncope and UTI. Daniel Alfaro DO MTDD
[2018-06-02 17:44] VITALS: O2SAT 100
--- NOTE | 2018-06-03 04:24 | CON ---
Copied To: Adarsh Owens MD Attending MD: Adarsh Owens MD DATE: 06/02/2018 HISTORY OF PRESENT ILLNESS: This is a 73-year-old woman with episode of a syncopal episode and came to the hospital with a past medical history of diabetes, high cholesterol and hypertension, also had a chronic atrial fibrillation, which was stopped several days ago. REVIEW OF SYSTEMS: Feels okay except this syncopal episode. Review of the systems done. PHYSICAL EXAMINATION: HEENT: Normocephalic, atraumatic. NECK: Supple. NEUROLOGIC: Alert, awake, orientated x3. No aphasia. Cranial nerves II through XII were tested. Pupils reactive. EOM intact. Visual hastings full. No facial asymmetry. Tongue midline. Motor: Moves all the extremities equally. Tone normal. Deep tendon reflexes are 1+. Both plantars are downgoing. Sensory appears intact. Cerebellar, gait, deferred. IMPRESSION: Syncope, less likely seizure. PLAN: Ordered EEG and workup in progress. We will follow up. Adarsh Owens MD
[2018-06-03 06:39] LABS: HEMOGLOBIN 10.7 g/dL (12.0-16.0); MEAN CELL VOLUME 79.8 fl (80.0-105.0); MEAN CORPUSCULAR HEMOGLOBIN 25.5 pg (25.0-35.0); MEAN CORPUSCULAR HGB CONC 31.9 g/dl (31.0-37.0); MEAN PLATELET VOLUME 8.7 fl (7.0-11.0); RBC 4.2 10^6/uL (3.5-6.1); RED CELL DISTRIBUTION WIDTH 14.8 % (11.5-14.5)
[2018-06-03] MEDS: Budesonide 0.5 mg/2 ml Inhal Susp UD INH SCH (07:43)
[2018-06-03] MEDS: Pantoprazole 40 mg EC Tab PO SCH (07:49)
[2018-06-03] MEDS: Insulin Reg-MEDIUM-Coverage SC SCH (08:10)
[2018-06-03] MEDS: cefTRIAXone 1 gm 1 GM/100 ML BAG IVPB SCH (09:16)
[2018-06-03 11:57] VITALS: BP 149/84; PULSE 81; RESP 18; TEMP 98
--- NOTE | 2018-06-03 12:35 | MRI ---
Date of service: 06/02/2018 PROCEDURE: MRI BRAIN WITHOUT CONTRAST HISTORY: Syncope COMPARISON: Noncontrast head CT from 03/22/2018 TECHNIQUE: Multiplanar, multisequence MR images of the brain were obtained without intravenous contrast enhancement. FINDINGS: HEMORRHAGE: None DWI: No evidence of an acute or early subacute infarction. BRAIN PARENCHYMA: There are mild chronic microangiopathic changes. There is no mass, mass effect or abnormal extra-axial fluid collection. There is no territorial infarction. The midline sagittal structures are normal. VENTRICLES: There is mild age-related global parenchymal volume loss and proportionate enlargement of the ventricles and cortical sulci. CRANIUM: There is normal bone marrow signal pattern. There is mild hyperostosis frontalis interna ORBITS: Grossly unremarkable. PARANASAL SINUSES/MASTOIDS: Predominantly clear. VASCULAR SYSTEM: There are normal signal voids in the larger intracranial arteries. OTHER FINDINGS: None. IMPRESSION: No acute intracranial abnormality. Mild chronic microangiopathic changes and mild age-related global parenchymal volume loss.
--- NOTE | 2018-06-03 14:38 | DS ---
Copied To: Daniel Alfaro DO Attending MD: Daniel Alfaro DO HISTORY OF PRESENT ILLNESS: She is resting comfortably in bed, doing a lot better. She came in with syncopal episode, hypoglycemia, UTI, AFib and diabetes. She is doing a lot better, feels well. She is being seen by Cardio and Neurology. The MRI was done last night. The MRI of the brain was finally done, waiting for to be read. Chest x-ray with no active disease. PHYSICAL EXAMINATION: VITAL SIGNS: She has a 98.2 temp, 88 pulse, 136/69 blood pressure, 17 respiratory rate, 100% O2 sat. HEENT: Head is atraumatic, normocephalic. HEART: Regular rate. LUNGS: Decreased breath sounds, but clear. ABDOMEN: Soft. EXTREMITIES: No edema and she has no more symptoms. LABORATORY DATA: 7 white count, 10.7 hemoglobin, 33.5 hematocrit with 327 platelets. Last blood sugar was 154. She has a 139 sodium, potassium 3.8, BUN 16, creatinine 0.9, GFR is greater than 60, calcium is 9.2, total bili is 0.2, AST is 24, ALT is 20, alk phos 57, total protein 6.8. MEDICATIONS: She is on aspirin, Coreg, Detrol, DuoNebs, Elavil, Eliquis, Glucophage, Lipitor, Neurontin, Norvasc, Protonix, Pulmicort and Rocephin. ASSESSMENT AND PLAN: She could be discharged today once get the MRI read and if it is okay with Neurology, I will change her to Bactrim DS that she could take on the outpatient for her urinary tract infection. Continue with the other medications. She gets the Bactrim for another 5 days. She was here for syncope, knee pain, low blood sugar, urinary tract infection, atrial fibrillation and diabetes. Daniel Alfaro DO
--- NOTE | 2018-06-06 08:31 | EEG ---
Copied To: Celso Owens MD Attending MD: Celso Owens MD DATE: 06/02/2018 DIAGNOSIS: Syncope. CONDITION OF THE RECORDING: Drowsy. MEDICATIONS: Reviewed by nurse's reconciliation sheet. INTERPRETATION: This is a 16-channel [employer] recording. Background activity of this tracing was composed of 8-1/2 cycles per second. There was small amount of beta activity of 16-20 cycles per second seen in this recording. There was small amount of theta activity of 5-7 cycles per second seen in this tracing. Drowsiness was characterized by mixed beta and theta activities. The sleep was characterized by vertex transient waves, sleep spindles, and bilateral slowing. Photic stimulation showed no changes in the tracing. No paroxysmal activity was noted in this recording. CONCLUSION: This is a normal drowsy electroencephalogram. No evidence of any epileptiform activity. Please clinically correlate. Celso Owens MD
== END 2018-06-03 13:37 | disposition home or self-care (01) ==
LOC: ED 16:20 → ERH 20:07 → 2RSO 20:44
PROVIDERS: ADMIT Family Medicine; ATTEND Family Medicine
DX: R55 Syncope and collapse (principal); N39.0 Urinary tract infection, site not specified; E11.649 Type 2 diabetes mellitus with hypoglycemia without coma; I48.2 Chronic atrial fibrillation; I10 Essential (primary) hypertension; E78.00 Pure hypercholesterolemia, unspecified; R32 Unspecified urinary incontinence; Z86.73 Personal history of transient ischemic attack (TIA), and cerebral infarction without residual deficits
CPT/HCPCS: 36415; 70551; 71046; 73560; 80053; 81001; 82948; 83036; 83735; 85025; 85027; 93005; 94640; 94760; 95812; 96365; 96375; 97116; 97161; 97530; 99285; G0378; G8978; G8979; J0696

== ENCOUNTER 2018-08-12 15:51 | Emergency (ER) | payer OTHER ==
--- NOTE | 2018-08-12 16:13 | ED PDOC ---
Arrival/HPI - General Time Seen by Provider: 08/12/18 15:53 Historian: Patient, EMS - History of Present Illness Narrative History of Present Illness (Text): 08/12/18 16:08 73 y/o female, pmh including DM (insulin/metformin/glipizide)/a.fibb(eliquis)/htn/cva, nkda, biba for evaluation for hypoglycemia episode at the [facility]. Pt. recently had a new denture, stated that she took her usual morning oral DM medication which she had breakfast since, gave herself insulin injection later this afternoon without eating because she feels irritated with the new denture which she quickly became fatigue and glucose was being check, glucose check around 30s which they gave IV dextrose and her symptoms resolved. Pt. stated that she feels well, no headache or night sweat, no rash, no head/neck/back/chest/abdominal/extremity injury or pain, no dizziness, no change in vision, no palpitation, no urinary symptoms, no dizziness, no numbness or tingling, no other medical or psychological complaints. Past Medical History - Provider Review Nursing Documentation Reviewed: Yes - Infectious Disease Hx of Infectious Diseases: None - Cardiac Hx Cardiac Disorders: Yes (A fib) Hx Hypertension: Yes - Pulmonary Hx Respiratory Disorders: No Other/Comment: dyspnea on exertion - Neurological HX Cerebrovascular Accident: Yes - HEENT Hx Cataracts: Yes - Renal Hx Renal Disorder: No - Endocrine/Metabolic Hx Diabetes Mellitus Type 2: Yes (+ insulin) - Hematological/Oncological Hx Anemia: Yes - Integumentary Hx Dermatological Disorder: No - Musculoskeletal/Rheumatological Hx Arthritis: Yes Hx Falls: Yes - Gastrointestinal Hx Gastrointestinal Disorders: Yes (abd pain) Hx Hemorrhoids: Yes - Genitourinary/Gynecological Hx Genitourinary Disorders: No - Psychiatric Hx Anxiety: Yes Hx Depression: Yes Hx Substance Use: No - Surgical History Hx Cardiac Catheterization: Yes Other/Comment: wisdom teeth exctraction 1975 - Anesthesia Hx Anesthesia: Yes Hx Anesthesia Reactions: No Hx Malignant Hyperthermia: No Family/Social History - Physician Review Nursing Documentation Reviewed: Yes Family/Social History: Unknown Family HX Smoking Status: Never Smoked Hx Alcohol Use: No Hx Substance Use: No Allergies/Home Meds Allergies/Adverse Reactions: Allergies No Known Allergies Allergy (Verified 01/27/18 21:13) Home Medications: Home Meds Medication Instructions Recorded Confirmed Amitriptyline HCl 75 mg PO HS 01/27/18 08/12/18 Insulin Glargine, Recombina 10 unit SC DAILY 01/27/18 08/12/18 [Lantus] Vitamin A 8,000 unit PO DAILY 01/27/18 08/12/18 Aspirin [Aspirin Chewable] 81 mg PO DAILY 03/22/18 08/12/18 Carvedilol [Coreg] 25 mg PO BID 03/22/18 08/12/18 Enalapril/Hydrochlorothiazide 1 tab PO BID 03/22/18 08/12/18 [Enalapril-Hctz 5-12.5 mg Tab] GlipiZIDE [Glucotrol] 10 mg PO BID 03/22/18 08/12/18 Insulin Lispro [humALOG] 10 units INJ BID 03/22/18 08/12/18 MetFORMIN [glucoPHAGE] 1,000 mg PO BID 03/22/18 08/12/18 Simvastatin 10 mg PO HS 03/22/18 08/12/18 amLODIPine [Norvasc] 10 mg PO DAILY 03/22/18 08/12/18 Review of Systems - Review of Systems Constitutional: absent: Fatigue, Fevers Eyes: absent: Vision Changes ENT: absent: Hearing Changes Respiratory: absent: SOB, Cough Cardiovascular: absent: Chest Pain Gastrointestinal: absent: Abdominal Pain, Nausea, Vomiting Musculoskeletal: absent: Arthralgias, Back Pain Skin: absent: Rash, Pruritis Neurological: absent: Headache, Dizziness Psychiatric: absent: Anxiety, Depression, Suicidal Ideation Physical Exam Vital Signs Reviewed: Yes - Systems Exam Head: Present: Atraumatic, Normocephalic, Other (no facial bony tenderness. ). No: Tenderness, Contusion, Swelling, Ecchymosis, Abrasion, Laceration Pupils: Present: PERRL Extroacular Muscles: Present: EOMI Conjunctiva: Present: Normal Ears: Present: NORMAL TM, Normal Canal. No: Erythema Mouth: Present: Moist Mucous Membranes Pharnyx: Present: Normal. No: ERYTHEMA, EXUDATE, TONSILS ENLARGED Nose (External): Present: Atraumatic. No: Abrasion, Contusion, Laceration Nose (Internal): Present: Normal Inspection, No Active Bleeding. No: Rhinorrhea, Septal Hematoma, Epistaxis Neck: Present: Normal Range of Motion, Trachea Midline. No: Meningeal Signs, MIDLINE TENDERNESS, Paraspinal Tenderness, Lymphadenopathy Respiratory/Chest: Present: Clear to Auscultation, Good Air Exchange. No: Respiratory Distress, Accessory Muscle Use, Wheezes, Decreased Breath Sounds, Rales, Retracting, Rhonchi, Tachypneic, Tender to Palpation Cardiovascular: Present: Regular Rate and Rhythm, Normal S1, S2. No: Murmurs Abdomen: No: Tenderness, Distention, Peritoneal Signs, Rebound, Guarding Back: Present: Normal Inspection. No: CVA Tenderness, Midline Tenderness, Paraspinal Tenderness, Pain with Leg Raise, Decubitus Ulcer Upper Extremity: Present: Normal Inspection, Normal ROM, NORMAL PULSES, Neurovascularly Intact, Capillary Refill < 2s. No: Cyanosis, Edema, Tenderness, Swelling, Deformity Lower Extremity: Present: Normal Inspection, NORMAL PULSES, Normal ROM, Neurovascularly Intact, Capillary Refill < 2 s. No: Edema, CALF TENDERNESS, Tenderness, Swelling, Deformity Neurological: Present: GCS=15, CN II-XII Intact, Speech Normal, Motor Func Grossly Intact, Gait Normal, Memory Normal Skin: Present: Warm, Dry, Normal Color. No: Rashes Psychiatric: Present: Alert, Oriented x 3, Normal Insight, Normal Concentration Medical Decision Making ED Course and Treatment: 08/12/18 16:20 -Labs -ekg -CT head -Food given -Observe and reassess 08/12/18 17:46 -EKG A.fibb @ 102 BPM with RVR?, no acute ST or T wave changes compared with previous ekgs, will repeat ekg. 08/12/18 18:07 -Repeated ekg: A.fibb @ 93 BPM, no acute ST or T wave changes compared with previous ekgs -CT head show No acute intracranial pathology. Age-related changes. No significant interval change. -Labs show no acute findings -Pt. is had a whole tray of food, feeling well, asymptomatic, no cardiopulmonary or neurological complaints, request to be discharged home without further evaluation or admission over night. -Glucose 212 tolerating po solid and fluid. -Reviewed old charts and her vital HR around 90s -Case discussed and ekg reviewed with DR. Virgil Blanco, she recommend to discharge home. -Discharge home with education on make sure you eat on time, follow up with your own pmd within 2 days, return to the ER for any new or worsening signs or symptoms. - Lab Interpretations Lab Results: Lab Results 08/12/18 15:57: POC Glucose (mg/dL) 132 H - RAD Interpretation Radiology Orders: Date of service: 08/12/2018 PROCEDURE: CT HEAD WITHOUT CONTRAST. HISTORY: eliquis, fall?, r/o bleed COMPARISON: None available. TECHNIQUE: Axial computed tomography images were obtained through the head/brain without intravenous contrast. Radiation dose: Total exam DLP = 1517.86 mGy-cm. This CT exam was performed using one or more of the following dose reduction techniques: Automated exposure control, adjustment of the mA and/or kV according to patient size, and/or use of iterative reconstruction technique. FINDINGS: HEMORRHAGE: No intracranial hemorrhage. BRAIN: No mass effect or edema. Atrophy. Chronic microvascular ischemic changes. Bilateral basal ganglia lacunar infarctions redemonstrated VENTRICLES: Unremarkable. No hydrocephalus. CALVARIUM: Unremarkable. PARANASAL SINUSES: Unremarkable as visualized. No significant inflammatory changes. MASTOID AIR CELLS: Unremarkable as visualized. No inflammatory changes. OTHER FINDINGS: None. IMPRESSION: No acute intracranial pathology. Age-related changes. No significant interval change. Fixed Wing Aircraft Flight Mechanic: Radiologist - EKG Interpretation EKG Interpretation (Text): 08/12/18 16:32 EKG: A.fibb @ 102 BPM, no acute ST or T wave changes compared with previous ekgs. Interpreted by ED Physician: Yes Type: 12 lead EKG Comparison: Com.w/previous EKG - PA / LEADERSHIP PROGRAM ASSOCIATE / Resident Statement MD/DO has reviewed & agrees with the documentation as recorded. Disposition/Present on Arrival - Present on Arrival Any Indicators Present on Arrival: No History of DVT/PE: No History of Uncontrolled Diabetes: No Urinary Catheter: No History of Decub. Ulcer: No History Surgical Site Infection Following: None - Disposition Have Diagnosis and Disposition been Completed?: Yes Diagnosis: Hypoglycemia Disposition: HOME/ ROUTINE Disposition Time: 17:49 Patient Plan: Discharge Patient Problems: Current Active Problems Problem Status Onset Hypoglycemia Acute Condition: IMPROVED Discharge Instructions (ExitCare): Low Blood Sugar, Adult (DC) Additional Instructions: -Discharge home with education on make sure you eat on time, follow up with your own pmd and Dr. Dunaway within 2 days, return to the ER for any new or worsening signs or symptoms. Referrals: [facility] at [facility] [place] [Outside] - Follow up with primary Daniel Alfaro DO [Staff Provider] - Follow up with primary Mihir Dunaway MD [Staff Provider] - Follow up with primary Forms: WORK NOTE
[2018-08-12] MEDS ORDERED: Sodium Chloride 0.9% 500 ML IV STA (16:21)
[2018-08-12 16:56] LABS: BASO # 0.02 K/mm3 (0.0-2.0); BASO % 0.2 % (0.0-3.0); EOS # 0.1 (0.0-0.7); EOS % 1.1 % (1.5-5.0); GRAN # 7.01 (1.4-6.5); GRAN % 79.9 % (50.0-68.0); HEMOGLOBIN 10.3 g/dL (12.0-16.0); LYMPH # 1.3 (1.2-3.4); LYMPH % 14.5 % (22.0-35.0); MEAN CORPUSCULAR HEMOGLOBIN 26.9 pg (25.0-35.0); MEAN CORPUSCULAR HGB CONC 32.4 g/dl (31.0-37.0); MONO # 0.4 (0.1-0.6); MONO % 4.3 % (1.0-6.0); RBC 3.83 10^6/uL (3.5-6.1); RED CELL DISTRIBUTION WIDTH 16.1 % (11.5-14.5); WHITE BLOOD COUNT 8.8 10^3/uL (4.5-11.0)
[2018-08-12 17:23] LABS: ALB/GLOB RATIO 1.4 (1.1-1.8); ALBUMIN 4.2 g/dL (3.0-4.8); ALT/SGPT 22 U/L (7-56); AST/SGOT 27 U/L (14-36); BLOOD UREA NITROGEN 15 mg/dL (7-21); CALCIUM 9.3 mg/dL (8.4-10.5); GFR NON-AFRICAN AMERICAN > 60
--- NOTE | 2018-08-12 17:23 | CT ---
Date of service: 08/12/2018 PROCEDURE: CT HEAD WITHOUT CONTRAST. HISTORY: eliquis, fall?, r/o bleed COMPARISON: None available. TECHNIQUE: Axial computed tomography images were obtained through the head/brain without intravenous contrast. Radiation dose: Total exam DLP = 1517.86 mGy-cm. This CT exam was performed using one or more of the following dose reduction techniques: Automated exposure control, adjustment of the mA and/or kV according to patient size, and/or use of iterative reconstruction technique. FINDINGS: HEMORRHAGE: No intracranial hemorrhage. BRAIN: No mass effect or edema. Atrophy. Chronic microvascular ischemic changes. Bilateral basal ganglia lacunar infarctions redemonstrated VENTRICLES: Unremarkable. No hydrocephalus. CALVARIUM: Unremarkable. PARANASAL SINUSES: Unremarkable as visualized. No significant inflammatory changes. MASTOID AIR CELLS: Unremarkable as visualized. No inflammatory changes. OTHER FINDINGS: None. IMPRESSION: No acute intracranial pathology. Age-related changes. No significant interval change.
[2018-08-12 18:45] VITALS: PULSE 95; TEMP 98.2
[2018-08-12 18:50] VITALS: O2SAT 97
[2018-08-12 19:25] VITALS: BP 168/86; RESP 16
--- NOTE | 2018-08-13 07:55 | CARD ---
APPROVED REPORT Date of service: 08/12/2018 EKG Measurement Heart [id number] <Conclusion> Atrial fibrillation with rapid ventricular response and aberrant conduction Nonspecific ST changes Abnormal ECG
== END 2018-08-12 19:24 | disposition home or self-care (01) ==
LOC: ED 15:51
DX: E11.649 Type 2 diabetes mellitus with hypoglycemia without coma (principal); Z79.4 Long term (current) use of insulin; I10 Essential (primary) hypertension; I48.91 Unspecified atrial fibrillation; Z79.01 Long term (current) use of anticoagulants; Z86.73 Personal history of transient ischemic attack (TIA), and cerebral infarction without residual deficits
CPT/HCPCS: 70450; 80053; 82948; 85025; 93005; 96360; 99285; J7040

== ENCOUNTER 2018-10-03 19:15 | Inpatient (IN) | payer OTHER ==
--- NOTE | 2018-10-03 19:54 | ED PDOC ---
Arrival/HPI - General Chief Complaint: Abdominal Pain Time Seen by Provider: 10/03/18 19:17 Historian: Patient - History of Present Illness Narrative History of Present Illness (Text): 10/03/18 19:37 73 F with PMHx of DM (insulin/metformin/glipizide)/a.fibb(eliquis)/htn/cva, nkda, presents with cc of epigastric pain today and difficulty swallowing for x1 week. Pt reports she feels like there is something stuck in her throat. Patient states she presented today after 1 week since she can no longer bear it, noting she made an appointment with her PMD. Patient notes she has to eat in very small amounts otherwise she chokes. Pt denies any other complaints. Time/Duration: 1 week Symptom Onset: Sudden Symptom Course: Unchanged Activities at Onset: Light Past Medical History - Provider Review Nursing Documentation Reviewed: Yes - Infectious Disease Hx of Infectious Diseases: None - Cardiac Hx Cardiac Disorders: Yes (A fib) Hx Hypertension: Yes - Pulmonary Hx Respiratory Disorders: No Other/Comment: dyspnea on exertion - Neurological HX Cerebrovascular Accident: Yes - HEENT Hx Cataracts: Yes - Renal Hx Renal Disorder: No - Endocrine/Metabolic Hx Diabetes Mellitus Type 2: Yes (+ insulin) - Hematological/Oncological Hx Anemia: Yes - Integumentary Hx Dermatological Disorder: No - Musculoskeletal/Rheumatological Hx Arthritis: Yes Hx Falls: Yes - Gastrointestinal Hx Gastrointestinal Disorders: Yes (abd pain) Hx Hemorrhoids: Yes - Genitourinary/Gynecological Hx Genitourinary Disorders: No - Psychiatric Hx Anxiety: Yes Hx Depression: Yes Hx Substance Use: No - Surgical History Hx Cardiac Catheterization: Yes Other/Comment: wisdom teeth exctraction 1975 - Anesthesia Hx Anesthesia: Yes Hx Anesthesia Reactions: No Hx Malignant Hyperthermia: No Family/Social History - Physician Review Nursing Documentation Reviewed: Yes Family/Social History: No Known Family HX Smoking Status: Never Smoked Hx Alcohol Use: No Hx Substance Use: No Allergies/Home Meds Allergies/Adverse Reactions: Allergies No Known Allergies Allergy (Verified 10/03/18 19:23) Home Medications: Home Meds Medication Instructions Recorded Confirmed Amitriptyline HCl 75 mg PO HS 01/27/18 08/12/18 Insulin Glargine, Recombina 10 unit SC DAILY 01/27/18 08/12/18 [Lantus] Vitamin A 8,000 unit PO DAILY 01/27/18 08/12/18 Aspirin [Aspirin Chewable] 81 mg PO DAILY 03/22/18 08/12/18 Carvedilol [Coreg] 25 mg PO BID 03/22/18 08/12/18 Enalapril/Hydrochlorothiazide 1 tab PO BID 03/22/18 08/12/18 [Enalapril-Hctz 5-12.5 mg Tab] GlipiZIDE [Glucotrol] 10 mg PO BID 03/22/18 08/12/18 Insulin Lispro [humALOG] 10 units INJ BID 03/22/18 08/12/18 MetFORMIN [glucoPHAGE] 1,000 mg PO BID 03/22/18 08/12/18 Simvastatin 10 mg PO HS 03/22/18 08/12/18 amLODIPine [Norvasc] 10 mg PO DAILY 03/22/18 08/12/18 Review of Systems - Physician Review All systems were reviewed & negative as marked: Yes (All other systems negative except that noted in the HPI.) - Review of Systems ENT: Other (difficulty swallowing) Gastrointestinal: Abdominal Pain Physical Exam - Physical Exam Narrative Physical Exam (Text): Gen: VS reviewed, alert, well developed, well nourished, nontoxic, mild distress. Pt actively coughing and gagging. Eye: EOMI, PERRL Neck: no JVD, supple, no adenopathy CV: Rapid heart rate, irregular rhythm Pulm: no distress, clear to auscultation, no wheeze, no rhonchi, breath sounds equal, no rales Abd: soft, mild epigastric tenderness, no guarding, no rebound, no rigidity Ext: pitting edema in bilateral lower extremities Skin: good color, no rash, no cyanosis Psych: responds appropriately to questions, normal affect Neuro: oriented x3, CN2-12 intact grossly, motor intact, sensation intact Vital Signs Reviewed: Yes Vital Signs Temp Pulse Resp BP Pulse Ox 10/03/18 19:39 100 F H 96 H 20 141/79 94 L Temperature: Afebrile Blood Pressure: Normal Pulse: Tachycardic Respiratory Rate: Normal Appearance: Positive for: Well-Appearing, Non-Toxic Pain Distress: Mild Mental Status: Positive for: Alert and Oriented X 3 Medical Decision Making ED Course and Treatment: 10/03/18 19:37 Impression: 73 F who presents with cc of epigastric pain today and difficulty swallowing for x1 week. Differential Diagnosis included but are not limited to: Plan: -- Labs -- CT of abdomen and Pelvis -- CT of neck soft tissue w/o contrast -- EKG -- X-Ray of chest -- Zofran -- Blood culture -- Urine culture -- Customs Examiner -- Urinary Straight catheterization -- Urinalysis -- Reassess and disposition Prior Visits: Notes and results from previous visits were reviewed. Patient was last seen in the emergency department on 08/12/18 or hypoglycemia episode at the [facility]. Pt was discharged home in improved condition and directed to follow up with PMD. Progress Notes: 10/03/18 22:[address] skaggs to the hospitalist service. patient to be admitted for intractable nausea and vomiting, CT suggestive of achalasia, patient will need GI consult and further workup. Patient with an elevated lactic acid level but no overt s/s of infection. Furthermore lactate could be type b lactic acidosis-will still initiate septic workup. Will give dose of lopressor for heart rate control. - RAD Interpretation Narrative RAD Interpretations (Text): 10/03/18 21:26 cxr my re ad: no focal infiltrate, no ptx, no wide mediastinum EXAM: CT Neck Without IV contrast. Electronically signed on Oct 03, 2018 9:25:02 PM EST by: Ronnie Enriquez M.D. IMPRESSION: 1. Study limited due to the lack of IV contrast. 2. No obstruction is seen of oropharyngeal nor nasopharyngeal spaces. 3. No obvious large masses seen. 4. Air filled proximal visualized esphagus possibly achalasia. Consider follow up with esophagram. 5. Incidentally, multilevel degenerative changes are seen of cervical vertebral spine. EXAM: CT Abdomen and Pelvis with IV contrast Electronically signed on Oct 03, 2018 9:35:00 PM EST by: Ronnie Enriquez M.D. IMPRESSION: 1. Mild focal thickening is seen involving part of splenic flexure versus under distention of uncertain etiology. 2. Dilated common bile duct is seen of uncertain etiology. Recommend further evaluation with MRCP and or ERCP. 3. Thick walled fluid filled duodenum and loops of jejunum as well as ileum compatible with enteritis. Infectious and inflammatory etiologies are considered. 4. Focal intra myometral mostly fatty appearing rounded lesion compatible with a fibroid with fatty degeneration. Radiology Orders: 10/03/18 19:29 CHEST PORTABLE [RAD] Stat 10/03/18 19:39 NECK SOFT TISSUE W/O CONTRAST [CT] Stat 10/03/18 19:42 ABDOMEN & PELVIS [ABD & PELVIS IV CONTRAST ONLY] [CT] Stat Boom Conveyor Operator: Radiologist - EKG Interpretation EKG Interpretation (Text): 10/03/18 20:17 4: atrial fibrillation at 121 bpm, lbbb; findins similiar when compared to old ekg on 08.12.2018 10/03/18 20:18 Interpreted by ED Physician: Yes Type: 12 lead EKG - Medication Orders Current Medication Orders: Discontinued Medications Ondansetron HCl (Zofran Inj) 4 mg IVP STAT STA Stop: 10/03/18 19:38 - Scribe Statement The provider has reviewed the documentation as recorded by the Scribe Myriam Ramirez All medical record entries made by the Scribe were at my direction and personally dictated by me. I have reviewed the chart and agree that the record accurately reflects my personal performance of the history, physical exam, medical decision making, and the department course for this patient. I have also personally directed, reviewed, and agree with the discharge instructions and disposition. Disposition/Present on Arrival - Present on Arrival Any Indicators Present on Arrival: No History of DVT/PE: No History of Uncontrolled Diabetes: No Urinary Catheter: No History of Decub. Ulcer: No History Surgical Site Infection Following: None - Disposition Have Diagnosis and Disposition been Completed?: Yes Diagnosis: Vomiting Disposition: HOSPITALIZED Disposition Time: 22:12 Patient Plan: Admission Condition: STABLE
[2018-10-03 19:56] LABS: BASO # 0.02 K/mm3 (0.0-2.0); BASO % 0.2 % (0.0-3.0); EOS # 0.2 (0.0-0.7); EOS % 1.6 % (1.5-5.0); GRAN # 9.3 (1.4-6.5); GRAN % 83.1 % (50.0-68.0); HEMOGLOBIN 10.5 g/dL (12.0-16.0); LYMPH # 1.3 (1.2-3.4); LYMPH % 11.6 % (22.0-35.0); MEAN CELL VOLUME 84.9 fl (80.0-105.0); MEAN CORPUSCULAR HEMOGLOBIN 26.8 pg (25.0-35.0); MEAN CORPUSCULAR HGB CONC 31.5 g/dl (31.0-37.0); MEAN PLATELET VOLUME 9.1 fl (7.0-11.0); MONO # 0.4 (0.1-0.6); MONO % 3.5 % (1.0-6.0); RBC 3.92 10^6/uL (3.5-6.1); RED CELL DISTRIBUTION WIDTH 14.7 % (11.5-14.5); WHITE BLOOD COUNT 11.2 10^3/uL (4.5-11.0)
[2018-10-03 20:09] LABS: INR 1.67; PARTIAL THROMBOPLASTIN TIME 37.9 Seconds (25.1-36.5); PROTHROMBIN TIME 19.2 SECONDS (9.4-12.5)
[2018-10-03 20:16] LABS: ALB/GLOB RATIO 1.4 (1.1-1.8); ALBUMIN 4.6 g/dL (3.0-4.8); ALT/SGPT 28 U/L (7-56); AST/SGOT 24 U/L (14-36); BLOOD UREA NITROGEN 19 mg/dL (7-21); CALCIUM 9.6 mg/dL (8.4-10.5); GFR NON-AFRICAN AMERICAN > 60; LIPASE 36 U/L (23-300)
[2018-10-03] MEDS ORDERED: Iohexol 350 MG/100 ML VIAL ONE (20:19)
[2018-10-03 20:28] LABS: B-TYPE NATRIURETIC PEPTIDE 953 pg/mL (0-450); TROPONIN I < 0.01 ng/mL
[2018-10-03 21:16] LABS: VENOUS BLOOD GAS BASE EXCESS -1.4 mmol/L (0.0-2.0); VENOUS BLOOD GAS PO2 66 mm/Hg (30-55); VENOUS BLOOD PH 7.32 (7.32-7.43)
[2018-10-03] MEDS ORDERED: Metoprolol 1 mg/ml Inj IVP STA (22:13)
[2018-10-03 22:17] LABS: URINE BILIRUBIN NEGATIVE (NEGATIVE); URINE BLOOD TRACE-INTACT (NEGATIVE); URINE GLUCOSE (UA) NEGATIVE (NEGATIVE); URINE LEUKOCYTE ESTERASE NEGATIVE Leu/uL (NEGATIVE); URINE PROTEIN NEGATIVE mg/dL (<30 mg/dL); URINE UROBILINOGEN 0.2 E.U./dL (<1 E.U./dL)
[2018-10-03 22:18] LABS: URINE APPEARANCE CLEAR (CLEAR); URINE COLOR LIGHT YELLOW (YELLOW)
[2018-10-03 22:24] LABS: URINE RBC 0 - 2 /hpf (0-2); URINE WBC 0 - 2 /hpf (0-6)
[2018-10-03] MEDS ORDERED: Levalbuterol 0.63 MG/3 ML Inhal Soln UD ONE (22:42)
[2018-10-03] MEDS ORDERED: Pantoprazole 40 mg EC Tab PO SCH (23:25)
[2018-10-04] MEDS: Levalbuterol 0.63 MG/3 ML Inhal Soln UD IH PRN (00:06)
[2018-10-04] MEDS: Insulin Detemir 100 units/ml Vial (Levemir) SC SCH ×2 (00:41→07:56)
[2018-10-04 01:12] LABS: VENOUS BLOOD GAS BASE EXCESS 1.5 mmol/L (0.0-2.0); VENOUS BLOOD GAS PO2 32 mm/Hg (30-55); VENOUS BLOOD PH 7.33 (7.32-7.43)
--- NOTE | 2018-10-04 01:56 | CP.PCM.HP ---
History of Present Illness - History of Present Illness History of Present Illness: Sameer Fish DO, PGY1. H&P for hospitalist service Dr Celso SharifC: difficulty swallowing 73 y/o female with PMH of HTN, DM, HLD, Afib presents to the ED with 5 days of difficulty swallowing that's is getting worse. He reports to not eating well because of feeling of chocking. She admits to epigastric pain and NBNB vomiting x2. She admits to taking her oral meds this morning but was concerned to eat solid food as it feels it is stuck in her throat.. She denied vomiting of undigested food, hematemesis, hemoptysis, aspiration, weight changes, fever, malaise or constitutional symptoms. She reports having EGD few years ago that was normal. Patient was seen by her PMD 2 weeks ago. She denies CP, palpitations, muscle weakness, headache, dizziness ROS was not fully obtained as patient was anxious, not able to talk. Full ROS c an be obtained later. PMH: as above PSH: none Meds: as per EMR ALL: NKDA SH: denied alcohol, smoking, drug use FM: non contributory Present on Admission - Present on Admission Any Indicators Present on Admission: No Past Patient History - Infectious Disease Hx of Infectious Diseases: None - Past Medical History & Family History Past Medical History?: Yes - Past Social History Smoking Status: Never Smoked - CARDIAC Hx Cardiac Disorders: Yes (A fib) Hx Hypertension: Yes - PULMONARY Hx Respiratory Disorders: No Other/Comment: dyspnea on exertion - NEUROLOGICAL HX Cerebrovascular Accident: Yes - HEENT Hx Cataracts: Yes - RENAL Hx Chronic Kidney Disease: No - ENDOCRINE/METABOLIC Hx Diabetes Mellitus Type 2: Yes (+ insulin) - HEMATOLOGICAL/ONCOLOGICAL Hx Anemia: Yes - INTEGUMENTARY Hx Dermatological Problems: No - MUSCULOSKELETAL/RHEUMATOLOGICAL Hx Falls: Yes - GASTROINTESTINAL Hx Gastrointestinal Disorders: Yes - GENITOURINARY/GYNECOLOGICAL Hx Genitourinary Disorders: No - PSYCHIATRIC Hx Anxiety: Yes Hx Depression: Yes - SURGICAL HISTORY Hx Cardiac Catheterization: Yes - ANESTHESIA Hx Anesthesia: Yes Hx Anesthesia Reactions: No Hx Malignant Hyperthermia: No Meds Allergies/Adverse Reactions: Allergies Allergy/AdvReac Type Severity Reaction Status Date / Time No Known Allergies Allergy Verified 10/03/18 19:23 Physical Exam - Constitutional Appears: In Acute Distress Additional comments: patient anxious, can not talk in clear sentences. feels something stuck in her throat. - Head Exam Head Exam: ATRAUMATIC, NORMAL INSPECTION, NORMOCEPHALIC - Eye Exam Eye Exam: EOMI, Normal appearance, PERRL Pupil Exam: NORMAL ACCOMODATION, PERRL - ENT Exam ENT Exam: Mucous Membranes Dry - Neck Exam Neck exam: Positive for: Full Rom, Normal Inspection. Negative for: Tenderness, Thyromegaly - Respiratory Exam Respiratory Exam: Clear to Auscultation Bilateral, NORMAL BREATHING PATTERN. absent: Rhonchi, Wheezes - Cardiovascular Exam Cardiovascular Exam: Tachycardia, Irregular Rhythm, +S1, +S2 - GI/Abdominal Exam GI & Abdominal Exam: Normal Bowel Sounds, Soft. absent: Tenderness - Back Exam Back exam: NORMAL INSPECTION - Neurological Exam Neurological exam: Alert, CN II-XII Intact, Oriented x3, Reflexes Normal - Psychiatric Exam Psychiatric exam: Anxious - Skin Skin Exam: Dry, Intact, Normal Color, Warm Results - Vital Signs Recent Vital Signs: Last Vital Signs Temp 100 F H 10/03/18 19:39 Pulse 109 H 10/03/18 22:50 Resp 18 10/03/18 22:50 BP 142/85 10/03/18 22:32 Pulse Ox 96 10/03/18 22:50 - Labs Result Diagrams: 10/03/18 19:40 10/03/18 19:40 Labs: Laboratory Results - last 24 hr 10/03/18 10/03/18 10/03/18 19:40 19:40 19:40 WBC 11.2 H D RBC 3.92 Hgb 10.5 L Hct 33.3 L MCV 84.9 MCH 26.8 MCHC 31.5 RDW 14.7 H Plt Count 299 MPV 9.1 Gran % 83.1 H Lymph % (Auto) 11.6 L [place] % (Auto) 3.5 Eos % (Auto) 1.6 Baso % (Auto) 0.2 Gran # 9.30 H Lymph # (Auto) 1.3 [place] # (Auto) 0.4 Eos # (Auto) 0.2 Baso # (Auto) 0.02 PT 19.2 H INR 1.67 APTT 37.9 H pO2 VBG pH VBG pCO2 VBG HCO3 VBG Total CO2 VBG O2 Sat (Calc) VBG Base Excess VBG Potassium Glucose Lactate FiO2 Sodium 139 Potassium 4.2 Chloride 105 Carbon Dioxide 22 Anion Gap 17 BUN 19 Creatinine 0.9 Est GFR ( Amer) > 60 Est GFR (Non-Af Amer) > 60 POC Glucose (mg/dL) Random Glucose 120 H Calcium 9.6 Total Bilirubin 0.3 AST 24 ALT 28 Alkaline Phosphatase 59 Troponin I < 0.01 NT-Pro-B Natriuret Pep 953 H Total Protein 7.8 Albumin 4.6 Globulin 3.2 Albumin/Globulin Ratio 1.4 Lipase 36 TSH 3rd Generation Venous Blood Potassium Urine Color Urine Appearance Urine pH Ur Specific [place] Urine Protein Urine Glucose (UA) Urine Ketones Urine Blood Urine Nitrate Urine Bilirubin Urine Urobilinogen Ur Leukocyte Esterase Urine RBC Urine WBC Ur Epithelial Cells 10/03/18 10/03/18 10/03/18 19:40 20:55 21:48 WBC RBC Hgb Hct MCV MCH MCHC RDW Plt Count MPV Gran % Lymph % (Auto) [place] % (Auto) Eos % (Auto) Baso % (Auto) Gran # Lymph # (Auto) [place] # (Auto) Eos # (Auto) Baso # (Auto) PT INR APTT pO2 66 H VBG pH 7.32 VBG pCO2 49.0 VBG HCO3 25.2 VBG Total CO2 26.7 VBG O2 Sat (Calc) 93.1 H VBG Base Excess -1.4 L VBG Potassium 4.1 Glucose 92 Lactate 2.9 H FiO2 21.0 Sodium 139.0 Potassium Chloride 102.0 Carbon Dioxide Anion Gap BUN Creatinine Est GFR ( Amer) Est GFR (Non-Af Amer) POC Glucose (mg/dL) Random Glucose Calcium Total Bilirubin AST ALT Alkaline Phosphatase Troponin I NT-Pro-B Natriuret Pep Total Protein Albumin Globulin Albumin/Globulin Ratio Lipase TSH 3rd Generation 1.27 Venous Blood Potassium 4.1 Urine Color Light yellow Urine Appearance Clear Urine pH 6.0 Ur Specific [place] 1.010 Urine Protein Negative Urine Glucose (UA) Negative Urine Ketones Negative Urine Blood Trace-intact H Urine Nitrate Negative Urine Bilirubin Negative Urine Urobilinogen 0.2 Ur Leukocyte Esterase Negative Urine RBC 0 - 2 Urine WBC 0 - 2 Ur Epithelial Cells None 10/04/18 10/04/18 00:30 00:45 WBC RBC Hgb Hct MCV MCH MCHC RDW Plt Count MPV Gran % Lymph % (Auto) [place] % (Auto) Eos % (Auto) Baso % (Auto) Gran # Lymph # (Auto) [place] # (Auto) Eos # (Auto) Baso # (Auto) PT INR APTT pO2 32 VBG pH 7.33 VBG pCO2 54.0 VBG HCO3 28.5 H VBG Total CO2 30.2 H VBG O2 Sat (Calc) 59.7 VBG Base Excess 1.5 VBG Potassium 3.9 Glucose 167 H Lactate 1.3 FiO2 21.0 Sodium 138.0 Potassium Chloride 102.0 Carbon Dioxide Anion Gap BUN Creatinine Est GFR ( Amer) Est GFR (Non-Af Amer) POC Glucose (mg/dL) 147 H Random Glucose Calcium Total Bilirubin AST ALT Alkaline Phosphatase Troponin I NT-Pro-B Natriuret Pep Total Protein Albumin Globulin Albumin/Globulin Ratio Lipase TSH 3rd Generation Venous Blood Potassium 3.9 Urine Color Urine Appearance Urine pH Ur Specific [place] Urine Protein Urine Glucose (UA) Urine Ketones Urine Blood Urine Nitrate Urine Bilirubin Urine Urobilinogen Ur Leukocyte Esterase Urine RBC Urine WBC Ur Epithelial Cells Assessment & Plan - Assessment and Plan (Free Text) Assessment: 73 y/o female with PMH of HTN, DM, HLD presents to the ED with 5 days of difficulty swallowing. CT A/P suggestive of achalasia Plan: Dysphagia: -new onset, no weight loss, to solid/liquid -CT neck w/o contrast (10/03): No mass, no oropharyngeal nasopharyngeal obstruction. Air filled proximal visualized esphagus, possible achalasia -CT A/P w/contrast (10/03): Thick walled fluid filled duodenum and loops of jejunum as well as ileum compatible with enteritis -swallow eval/treat -protonix IVP -keep NPO -GI consulted. Dr Altamirano DM -continue home meds glipizide -ISS-low -accuchecks ACHS -continue home meds gabapentin and Elavil for neuropathy HTN -continue home Norvasc, Coreg, enalapril -continue to monitor -continue Aspirin HLD - continue home med lipitor 10 Leukocytosis: -mild, patient afebrile -f/u pancuture blood, urine, sputum -f/u CBC h/o Afib -continue home medication coreg -continue lovenox -Echo: h/o CVA -no residual weakness Prophylaxis: -DVT ppx: lovenox, SCD -GI ppx: protonix NPO Case reviewed and plan discussed with attending Dr Celso Fish, DO, PGY1
[2018-10-04] MEDS ORDERED: Albuterol-Ipratrop 3 mg / 0.5 (3 ml) UD INH PRN (02:00)
[2018-10-04 02:14] VITALS: BMI 27.4
[2018-10-04 07:24] LABS: BASO # 0.01 K/mm3 (0.0-2.0); BASO % 0.1 % (0.0-3.0); EOS % 0.3 % (1.5-5.0); GRAN # 5.89 (1.4-6.5); GRAN % 82.9 % (50.0-68.0); HEMOGLOBIN 10.5 g/dL (12.0-16.0); LYMPH # 0.7 (1.2-3.4); LYMPH % 9.9 % (22.0-35.0); MEAN CELL VOLUME 85.1 fl (80.0-105.0); MEAN CORPUSCULAR HEMOGLOBIN 26.4 pg (25.0-35.0); MEAN CORPUSCULAR HGB CONC 31.1 g/dl (31.0-37.0); MEAN PLATELET VOLUME 9.1 fl (7.0-11.0); MONO # 0.5 (0.1-0.6); MONO % 6.8 % (1.0-6.0); RBC 3.97 10^6/uL (3.5-6.1); RED CELL DISTRIBUTION WIDTH 14.6 % (11.5-14.5); WHITE BLOOD COUNT 7.1 10^3/uL (4.5-11.0)
[2018-10-04 07:50] LABS: ALB/GLOB RATIO 1.4 (1.1-1.8); ALBUMIN 4.2 g/dL (3.0-4.8); ALT/SGPT 29 U/L (7-56); AST/SGOT 25 U/L (14-36); BLOOD UREA NITROGEN 16 mg/dL (7-21); CALCIUM 9.2 mg/dL (8.4-10.5); GFR NON-AFRICAN AMERICAN > 60
[2018-10-04] MEDS: Budesonide 0.5 mg/2 ml Inhal Susp UD INH SCH ×2 (07:51→19:37)
[2018-10-04] MEDS: Arformoterol 15 mcg/2 ml Inh Sol IH SCH ×2 (07:51→19:37)
[2018-10-04 08:22] LABS: IRON 44 ug/dL (45-180)
[2018-10-04 08:32] LABS: % IRON SATURATION 12 % (20-55); TOTAL IRON BINDING CAPACITY 352 ug/dL (265-497)
--- NOTE | 2018-10-04 08:45 | CT ---
Date of service: 10/03/2018 PROCEDURE: CT NECK WITHOUT CONTRAST HISTORY: vomiting. obstruction COMPARISON: None TECHNIQUE: CT of the neck without intravenous contrast. Coronal and sagittal reformats generated. Radiation dose: Total exam DLP = 476.94 mGy-cm. This CT exam was performed using one or more of the following dose reduction techniques: Automated exposure control, adjustment of the mA and/or kV according to patient size, and/or use of iterative reconstruction technique. FINDINGS: NASOPHARYNX: Unremarkable. SUPRAHYOID NECK: Unremarkable oropharynx, oral cavity, parapharyngeal space and retropharyngeal space. INFRAHYOID NECK: Unremarkable larynx, hypopharynx, and supraglottic space. Vocal cords intact. MASS: None. GLANDS: Parotid and submandibular glands unremarkable. The thyroid gland is enlarged without focal abnormality. Elective thyroid ultrasound advised. LYMPH NODES: Normal. No lymphadenopathy. CERVICAL SPINE: No fracture or focal lesion. OTHER FINDINGS: Dilated esophagus of uncertain etiology or significance. IMPRESSION: No acute findings related to/ accounting for the clinical presentation. Additional benign and/or incidental findings described above. Concordant results (preliminary interpretation) provided by [facility]. Procedure Completed: 20:32. Preliminary Report: Dictated and Authenticated: 21:25. Final Interpretation: 08:41. October 04, 2018
--- NOTE | 2018-10-04 08:52 | CT ---
Date of service: 10/03/2018 PROCEDURE: CT Abdomen and Pelvis with contrast HISTORY: obstruction COMPARISON: None. TECHNIQUE: Intravenous contrast dose: 100 cc Omnipaque 300 Radiation dose: Total exam DLP = 823.53 mGy-cm. This CT exam was performed using one or more of the following dose reduction techniques: Automated exposure control, adjustment of the mA and/or kV according to patient size, and/or use of iterative reconstruction technique. FINDINGS: LOWER THORAX: Unremarkable. LIVER: Unremarkable. No gross lesion or ductal dilatation. There is dilatation of the common bile duct measuring 7.4 mm in maximum diameter. No distal lesions or stones identified within the common duct or pancreas. GALLBLADDER AND BILE DUCTS: Unremarkable. PANCREAS: Unremarkable. No gross lesion or ductal dilatation. SPLEEN: Unremarkable. ADRENALS: Unremarkable. No mass. KIDNEYS AND URETERS: Unremarkable. No hydronephrosis. No solid mass. Incidental finding(s): Small right renal cysts. VASCULATURE: Atherosclerotic calcification and mural plaque present. Findings are seen throughout the aorta which is non aneurysmal. BOWEL: Unremarkable. No obstruction. No gross mural thickening. APPENDIX: Normal appendix. PERITONEUM: Unremarkable. No free fluid. No free air. LYMPH NODES: Unremarkable. No enlarged lymph nodes. BLADDER: Unremarkable. REPRODUCTIVE: Fat containing mass in the pelvis to the left of the midline. This is either within the uterus or left adnexa. The mass measures 3.1 x 3.3 cm. Pelvic ultrasound recommended for further evaluation to more precisely determine anatomic origin of the mass. BONES: No acute fracture. OTHER FINDINGS: None. IMPRESSION: No acute findings related to/ accounting for the clinical presentation. Dilated common bile duct of uncertain etiology or significance. Ultrasound advised for further assessment. Pelvic mass either originating within the uterus or left adnexa. Pelvic ultrasound recommended for further assessment. Concordant results (preliminary interpretation) provided by [facility]. Procedure Completed: 20:37. Preliminary Report: Dictated and Authenticated: 21:35. Final Interpretation: 08:48. October 04, 2018
--- NOTE | 2018-10-04 09:12 | RAD ---
Date of service: 10/03/2018 HISTORY: Shortness of breath. COMPARISON: 06/01/2018. FINDINGS: LUNGS: No active pulmonary disease. PLEURA: No significant pleural effusion identified, no pneumothorax apparent. CARDIOVASCULAR: No atherosclerotic calcification present Normal. OSSEOUS STRUCTURES: No significant abnormalities. VISUALIZED UPPER ABDOMEN: Normal. OTHER FINDINGS: None. IMPRESSION: No active disease. No significant interval change compared to the prior examination(s).
[2018-10-04] MEDS ORDERED: Enoxaparin 80 mg Syringe SC SCH ×2 (09:15→21:00)
--- NOTE | 2018-10-04 09:44 | CP.PCM.CON ---
<Al Morrison - Last Filed: 10/04/18 09:50> History of Present Illness - History of Present Illness History of Present Illness: PGY-4 GI Fellow Consult Note Pt is a 73 yo F with h/o Afib (on apixaban), HTN, HLD, DM, GERD on chronic PPI presenting with complaint difficulty swallowing. She states that over the last several days she has noticed some difficulty swallowing solids with sensation of certain items getting stuck around her sternal notch area. She states that she can tolerate liquids without problems, but seemed to have told other providers that she may have issues with liquids as well. Of note, she has been fairly anxious and restless. She reports some mild, intermittent epigastric discomfort with 2 episodes of NB/NB emesis. She denied any odynophaiga, weight loss melena nor hematochezia. She states that she has EGD and CSPY in the last year or two which were normal per her report. CSPY file in [facility] reveal CSPY on 02/06/17 with small hyperplastic polyp in sigmoid and internal+external hemorrhoids. 12 point ROS negative other than stated above MHx: See above SurgHx: Denied Meds: Reviewed in chart FamHx: Brother with "colon problem" SocHx: Denied x 3 All: NKDA Past Patient History - Infectious Disease Hx of Infectious Diseases: None - Past Medical History & Family History Past Medical History?: Yes - Past Social History Smoking Status: Never Smoked - CARDIAC Hx Cardiac Disorders: Yes (A fib) Hx Hypertension: Yes - PULMONARY Hx Respiratory Disorders: No Other/Comment: dyspnea on exertion - NEUROLOGICAL HX Cerebrovascular Accident: Yes - HEENT Hx Cataracts: Yes - RENAL Hx Chronic Kidney Disease: No - ENDOCRINE/METABOLIC Hx Diabetes Mellitus Type 2: Yes (+ insulin) - HEMATOLOGICAL/ONCOLOGICAL Hx Anemia: Yes - INTEGUMENTARY Hx Dermatological Problems: No - MUSCULOSKELETAL/RHEUMATOLOGICAL Hx Falls: Yes - GASTROINTESTINAL Hx Gastrointestinal Disorders: Yes - GENITOURINARY/GYNECOLOGICAL Hx Genitourinary Disorders: No - PSYCHIATRIC Hx Anxiety: Yes Hx Depression: Yes - SURGICAL HISTORY Hx Cardiac Catheterization: Yes - ANESTHESIA Hx Anesthesia: Yes Hx Anesthesia Reactions: No Hx Malignant Hyperthermia: No Meds Allergies/Adverse Reactions: Allergies Allergy/AdvReac Type Severity Reaction Status Date / Time No Known Allergies Allergy Verified 10/03/18 19:23 - Medications Medications: Current Medications Acetaminophen (Tylenol 650 Mg Supp) 650 mg RC Q6H PRN PRN Reason: Fever >100.4 F Albuterol/Ipratropium (Duoneb 3 Mg/0.5 Mg (3 Ml) Ud) 3 ml INH [id number] PRN PRN Reason: Shortness of Breath Amitriptyline HCl (Elavil) 75 mg PO HS [facility] Last Admin: 10/04/18 00:28 Dose: 75 mg Amlodipine Besylate (Norvasc) 10 mg PO DAILY [facility] Last Admin: 10/04/18 09:35 Dose: Not Given Apixaban (Eliquis) 2.5 mg PO BID [facility]; Protocol Last Admin: 10/04/18 00:40 Dose: Not Given Arformoterol Tartrate (Brovana) 15 mcg IH [id number] [facility] Last Admin: 10/04/18 07:51 Dose: 15 mcg Aspirin (Ecotrin) 81 mg PO DAILY [facility] Last Admin: 10/04/18 09:34 Dose: Not Given Atorvastatin Calcium (Lipitor) 10 mg PO HS [facility] Last Admin: 10/04/18 00:41 Dose: Not Given Budesonide (Pulmicort Respules) 0.5 mg INH [id number] [facility] Last Admin: 10/04/18 07:51 Dose: 0.5 mg Carvedilol (Coreg) 25 mg PO BID [facility] Last Admin: 10/04/18 09:34 Dose: Not Given Enoxaparin Sodium (Lovenox) 70 mg SC Q24H [facility]; Protocol Gabapentin (Neurontin) 300 mg PO BID [facility]; Protocol Last Admin: 10/04/18 09:34 Dose: Not Given Glipizide (Glucotrol) 10 mg PO BID [facility] Last Admin: 10/04/18 09:34 Dose: Not Given Piperacillin Sod/Tazobactam Sod (Zosyn 3.375 In Ns 100ml) 100 mls @ 25 mls/hr IVPB Q12 [facility]; Protocol Stop: 10/04/18 13:59 Insulin Detemir (Levemir) 5 unit SC ACS [facility] Last Admin: 10/04/18 07:56 Dose: Not Given Levalbuterol HCl (Xopenex) 0.63 mg IH [id number] PRN PRN Reason: Shortness of Breath Last Admin: 10/04/18 00:06 Dose: 0.63 mg Lisinopril (Zestril) 10 mg PO DAILY [facility] Last Admin: 10/04/18 09:35 Dose: Not Given Non-Formulary Medication (Vitamin A [Vitamin A]) 8,000 unit PO DAILY [facility] Pantoprazole Sodium (Protonix Inj) 40 mg IVP DAILY [facility] Last Admin: 10/04/18 09:35 Dose: Not Given Tolterodine Tartrate (Detrol) 2 mg PO BID [facility] Last Admin: 10/04/18 09:34 Dose: Not Given Physical Exam - Constitutional Appears: Well, No Acute Distress - Head Exam Head Exam: ATRAUMATIC, NORMAL INSPECTION - Eye Exam Eye Exam: EOMI. absent: Scleral icterus - ENT Exam ENT Exam: Mucous Membranes Dry. absent: Mucous Membranes Moist - Respiratory Exam Respiratory Exam: Clear to Auscultation Bilateral. absent: Accessory Muscle Use, Respiratory Distress - Cardiovascular Exam Cardiovascular Exam: REGULAR RHYTHM, RRR - GI/Abdominal Exam GI & Abdominal Exam: Normal Bowel Sounds, Soft. absent: Bruit, Diminished Bowel Sounds, Distended, Firm, Guarding, Hernia, Mass, Organomegaly, Pulsatile Mass, Rebound, Rigid, Tenderness - Rectal Exam Rectal Exam: Deferred - Extremities Exam Extremities exam: Positive for: normal inspection. Negative for: pedal edema - Neurological Exam Neurological exam: Alert, CN II-XII Intact - Psychiatric Exam Psychiatric exam: Anxious, Normal Affect - Skin Skin Exam: Normal Color, Warm Results - Vital Signs Recent Vital Signs: Last Vital Signs Temp 98.4 F 10/04/18 05:59 Pulse 114 H 10/04/18 07:55 Resp 21 10/04/18 05:59 BP 146/68 10/04/18 05:59 Pulse Ox 95 10/04/18 05:59 - Labs Result Diagrams: 10/04/18 06:30 10/04/18 06:30 Labs: Laboratory Results - last 24 hr 10/03/18 10/03/18 10/03/18 19:40 19:40 19:40 WBC 11.2 H D RBC 3.92 Hgb 10.5 L Hct 33.3 L MCV 84.9 MCH 26.8 MCHC 31.5 RDW 14.7 H Plt Count 299 MPV 9.1 Gran % 83.1 H Lymph % (Auto) 11.6 L [place] % (Auto) 3.5 Eos % (Auto) 1.6 Baso % (Auto) 0.2 Gran # 9.30 H Lymph # (Auto) 1.3 [place] # (Auto) 0.4 Eos # (Auto) 0.2 Baso # (Auto) 0.02 Retic Count PT 19.2 H INR 1.67 APTT 37.9 H pO2 VBG pH VBG pCO2 VBG HCO3 VBG Total CO2 VBG O2 Sat (Calc) VBG Base Excess VBG Potassium Glucose Lactate FiO2 Sodium 139 Potassium 4.2 Chloride 105 Carbon Dioxide 22 Anion Gap 17 BUN 19 Creatinine 0.9 Est GFR ( Amer) > 60 Est GFR (Non-Af Amer) > 60 POC Glucose (mg/dL) Random Glucose 120 H Calcium 9.6 Phosphorus Magnesium Iron TIBC % Saturation Total Bilirubin 0.3 AST 24 ALT 28 Alkaline Phosphatase 59 Troponin I < 0.01 NT-Pro-B Natriuret Pep 953 H Total Protein 7.8 Albumin 4.6 Globulin 3.2 Albumin/Globulin Ratio 1.4 Lipase 36 TSH 3rd Generation Venous Blood Potassium Urine Color Urine Appearance Urine pH Ur Specific [place] Urine Protein Urine Glucose (UA) Urine Ketones Urine Blood Urine Nitrate Urine Bilirubin Urine Urobilinogen Ur Leukocyte Esterase Urine RBC Urine WBC Ur Epithelial Cells 10/03/18 10/03/18 10/03/18 19:40 20:55 21:48 WBC RBC Hgb Hct MCV MCH MCHC RDW Plt Count MPV Gran % Lymph % (Auto) [place] % (Auto) Eos % (Auto) Baso % (Auto) Gran # Lymph # (Auto) [place] # (Auto) Eos # (Auto) Baso # (Auto) Retic Count PT INR APTT pO2 66 H VBG pH 7.32 VBG pCO2 49.0 VBG HCO3 25.2 VBG Total CO2 26.7 VBG O2 Sat (Calc) 93.1 H VBG Base Excess -1.4 L VBG Potassium 4.1 Glucose 92 Lactate 2.9 H FiO2 21.0 Sodium 139.0 Potassium Chloride 102.0 Carbon Dioxide Anion Gap BUN Creatinine Est GFR ( Amer) Est GFR (Non-Af Amer) POC Glucose (mg/dL) Random Glucose Calcium Phosphorus Magnesium Iron TIBC % Saturation Total Bilirubin AST ALT Alkaline Phosphatase Troponin I NT-Pro-B Natriuret Pep Total Protein Albumin Globulin Albumin/Globulin Ratio Lipase TSH 3rd Generation 1.27 Venous Blood Potassium 4.1 Urine Color Light yellow Urine Appearance Clear Urine pH 6.0 Ur Specific [place] 1.010 Urine Protein Negative Urine Glucose (UA) Negative Urine Ketones Negative Urine Blood Trace-intact H Urine Nitrate Negative Urine Bilirubin Negative Urine Urobilinogen 0.2 Ur Leukocyte Esterase Negative Urine RBC 0 - 2 Urine WBC 0 - 2 Ur Epithelial Cells None 10/04/18 10/04/18 10/04/18 00:30 00:45 06:30 WBC 7.1 D RBC 3.97 Hgb 10.5 L Hct 33.8 L MCV 85.1 MCH 26.4 MCHC 31.1 RDW 14.6 H Plt Count 256 MPV 9.1 Gran % 82.9 H Lymph % (Auto) 9.9 L [place] % (Auto) 6.8 H Eos % (Auto) 0.3 L Baso % (Auto) 0.1 Gran # 5.89 Lymph # (Auto) 0.7 L [place] # (Auto) 0.5 Eos # (Auto) 0.0 Baso # (Auto) 0.01 Retic Count PT INR APTT pO2 32 VBG pH 7.33 VBG pCO2 54.0 VBG HCO3 28.5 H VBG Total CO2 30.2 H VBG O2 Sat (Calc) 59.7 VBG Base Excess 1.5 VBG Potassium 3.9 Glucose 167 H Lactate 1.3 FiO2 21.0 Sodium 138.0 Potassium Chloride 102.0 Carbon Dioxide Anion Gap BUN Creatinine Est GFR ( Amer) Est GFR (Non-Af Amer) POC Glucose (mg/dL) 147 H Random Glucose Calcium Phosphorus Magnesium Iron TIBC % Saturation Total Bilirubin AST ALT Alkaline Phosphatase Troponin I NT-Pro-B Natriuret Pep Total Protein Albumin Globulin Albumin/Globulin Ratio Lipase TSH 3rd Generation Venous Blood Potassium 3.9 Urine Color Urine Appearance Urine pH Ur Specific [place] Urine Protein Urine Glucose (UA) Urine Ketones Urine Blood Urine Nitrate Urine Bilirubin Urine Urobilinogen Ur Leukocyte Esterase Urine RBC Urine WBC Ur Epithelial Cells 10/04/18 10/04/18 10/04/18 06:30 08:00 08:00 WBC RBC Hgb Hct MCV MCH MCHC RDW Plt Count MPV Gran % Lymph % (Auto) [place] % (Auto) Eos % (Auto) Baso % (Auto) Gran # Lymph # (Auto) [place] # (Auto) Eos # (Auto) Baso # (Auto) Retic Count 1.24 PT INR APTT pO2 VBG pH VBG pCO2 VBG HCO3 VBG Total CO2 VBG O2 Sat (Calc) VBG Base Excess VBG Potassium Glucose Lactate FiO2 Sodium 137 Potassium 4.0 Chloride 103 Carbon Dioxide 27 Anion Gap 12 BUN 16 Creatinine 0.8 Est GFR ( Amer) > 60 Est GFR (Non-Af Amer) > 60 POC Glucose (mg/dL) Random Glucose 186 H Calcium 9.2 Phosphorus 3.8 Magnesium 1.4 L Iron TIBC % Saturation Total Bilirubin 0.3 AST 25 ALT 29 Alkaline Phosphatase 61 Troponin I NT-Pro-B Natriuret Pep Total Protein 7.2 Albumin 4.2 Globulin 3.0 Albumin/Globulin Ratio 1.4 Lipase TSH 3rd Generation 0.92 Venous Blood Potassium Urine Color Urine Appearance Urine pH Ur Specific [place] Urine Protein Urine Glucose (UA) Urine Ketones Urine Blood Urine Nitrate Urine Bilirubin Urine Urobilinogen Ur Leukocyte Esterase Urine RBC Urine WBC Ur Epithelial Cells 10/04/18 08:00 WBC RBC Hgb Hct MCV MCH MCHC RDW Plt Count MPV Gran % Lymph % (Auto) [place] % (Auto) Eos % (Auto) Baso % (Auto) Gran # Lymph # (Auto) [place] # (Auto) Eos # (Auto) Baso # (Auto) Retic Count PT INR APTT pO2 VBG pH VBG pCO2 VBG HCO3 VBG Total CO2 VBG O2 Sat (Calc) VBG Base Excess VBG Potassium Glucose Lactate FiO2 Sodium Potassium Chloride Carbon Dioxide Anion Gap BUN Creatinine Est GFR ( Amer) Est GFR (Non-Af Amer) POC Glucose (mg/dL) Random Glucose Calcium Phosphorus Magnesium Iron 44 L TIBC 352 % Saturation 12 L Total Bilirubin AST ALT Alkaline Phosphatase Troponin I NT-Pro-B Natriuret Pep Total Protein Albumin Globulin Albumin/Globulin Ratio Lipase TSH 3rd Generation Venous Blood Potassium Urine Color Urine Appearance Urine pH Ur Specific [place] Urine Protein Urine Glucose (UA) Urine Ketones Urine Blood Urine Nitrate Urine Bilirubin Urine Urobilinogen Ur Leukocyte Esterase Urine RBC Urine WBC Ur Epithelial Cells Assessment & Plan - Assessment and Plan (Free Text) Assessment: A 73 yo F with GERD, HTN, Afib (on AC), DM presenting with difficulty swallowing. # Dysphagia: To solids, pt states liquids no problem though told other providers not so. Possibly worse over last several days. Reportedly had EGD in the last few year for "back pain" but no records available and pt does not recal doctor that did procedure. No weight loss, odynophagia, hematemesis nor melena; Hgb at baseline. # Dilated CBD: 7.4 mm. Unclear etiology, liver tests wnl. Size of CBD may be normal for age. # GERD: On chronic PPI # Afib: On apixaban Plan: - Follow up Speech therapy diet eval, otherwise can trial puree diet if unable to be seen - If tolerating diet, can have further w/u with Esophagram, Abd US, MRCP, etc. as an outpatient - Cont PPI Pt discussed with Dr. Altamirano who will examine pt later; please see attestation for further recs/changes. Al Morrison, PGY-4 <Caleb Altamirano - Last Filed: 10/04/18 11:49> Meds - Medications Medications: Current Medications Acetaminophen (Tylenol 650 Mg Supp) 650 mg RC Q6H PRN PRN Reason: Fever >100.4 F Last Admin: 10/04/18 09:41 Dose: 650 mg Albuterol/Ipratropium (Duoneb 3 Mg/0.5 Mg (3 Ml) Ud) 3 ml INH [id number] PRN PRN Reason: Shortness of Breath Amitriptyline HCl (Elavil) 75 mg PO [facility] Last Admin: 10/04/18 00:28 Dose: 75 mg Amlodipine Besylate (Norvasc) 10 mg PO DAILY [facility] Last Admin: 10/04/18 09:35 Dose: Not Given Apixaban (Eliquis) 2.5 mg PO BID [facility]; Protocol Last Admin: 10/04/18 00:40 Dose: Not Given Arformoterol Tartrate (Brovana) 15 mcg IH [id number] [facility] Last Admin: 10/04/18 07:51 Dose: 15 mcg Aspirin (Ecotrin) 81 mg PO DAILY [facility] Last Admin: 10/04/18 09:34 Dose: Not Given Atorvastatin Calcium (Lipitor) 10 mg PO [facility] Last Admin: 10/04/18 00:41 Dose: Not Given Budesonide (Pulmicort Respules) 0.5 mg INH [id number] [facility] Last Admin: 10/04/18 07:51 Dose: 0.5 mg Carvedilol (Coreg) 25 mg PO BID [facility] Last Admin: 10/04/18 09:34 Dose: Not Given Enoxaparin Sodium (Lovenox) 70 mg SC Q24H [facility]; Protocol Last Admin: 10/04/18 09:41 Dose: 70 mg Gabapentin (Neurontin) 300 mg PO BID [facility]; Protocol Last Admin: 10/04/18 09:34 Dose: Not Given Glipizide (Glucotrol) 10 mg PO BID [facility] Last Admin: 10/04/18 09:34 Dose: Not Given Piperacillin Sod/Tazobactam Sod (Zosyn 3.375 In Ns 100ml) 100 mls @ 25 mls/hr IVPB Q12 [facility]; Protocol Stop: 10/04/18 13:59 Last Admin: 10/04/18 09:41 Dose: 25 mls/hr Insulin Detemir (Levemir) 5 unit SC ACBHS [facility] Last Admin: 10/04/18 07:56 Dose: Not Given Levalbuterol HCl (Xopenex) 0.63 mg IH [id number] PRN PRN Reason: Shortness of Breath Last Admin: 10/04/18 00:06 Dose: 0.63 mg Lisinopril (Zestril) 10 mg PO DAILY [facility] Last Admin: 10/04/18 09:35 Dose: Not Given Non-Formulary Medication (Vitamin A [Vitamin A]) 8,000 unit PO DAILY [facility] Pantoprazole Sodium (Protonix Inj) 40 mg IVP DAILY [facility] Last Admin: 10/04/18 09:35 Dose: Not Given Tolterodine Tartrate (Detrol) 2 mg PO BID [facility] Last Admin: 10/04/18 09:34 Dose: Not Given Results - Vital Signs Recent Vital Signs: Last Vital Signs Temp 102.5 F H 10/04/18 10:41 Pulse 125 H 10/04/18 09:42 Resp 21 10/04/18 05:59 BP 149/104 H 10/04/18 09:42 Pulse Ox 95 10/04/18 05:59 - Labs Result Diagrams: 10/04/18 06:30 10/04/18 06:30 Labs: Laboratory Results - last 24 hr 10/03/18 10/03/18 10/03/18 19:40 19:40 19:40 WBC 11.2 H D RBC 3.92 Hgb 10.5 L Hct 33.3 L MCV 84.9 MCH 26.8 MCHC 31.5 RDW 14.7 H Plt Count 299 MPV 9.1 Gran % 83.1 H Lymph % (Auto) 11.6 L [place] % (Auto) 3.5 Eos % (Auto) 1.6 Baso % (Auto) 0.2 Gran # 9.30 H Lymph # (Auto) 1.3 [place] # (Auto) 0.4 Eos # (Auto) 0.2 Baso # (Auto) 0.02 Retic Count PT 19.2 H INR 1.67 APTT 37.9 H pO2 VBG pH VBG pCO2 VBG HCO3 VBG Total CO2 VBG O2 Sat (Calc) VBG Base Excess VBG Potassium Glucose Lactate FiO2 Sodium 139 Potassium 4.2 Chloride 105 Carbon Dioxide 22 Anion Gap 17 BUN 19 Creatinine 0.9 Est GFR ( Amer) > 60 Est GFR (Non-Af Amer) > 60 POC Glucose (mg/dL) Random Glucose 120 H Calcium 9.6 Phosphorus Magnesium Iron TIBC % Saturation Total Bilirubin 0.3 AST 24 ALT 28 Alkaline Phosphatase 59 Troponin I < 0.01 NT-Pro-B Natriuret Pep 953 H Total Protein 7.8 Albumin 4.6 Globulin 3.2 Albumin/Globulin Ratio 1.4 Lipase 36 TSH 3rd Generation Venous Blood Potassium Urine Color Urine Appearance Urine pH Ur Specific [place] Urine Protein Urine Glucose (UA) Urine Ketones Urine Blood Urine Nitrate Urine Bilirubin Urine Urobilinogen Ur Leukocyte Esterase Urine RBC Urine WBC Ur Epithelial Cells 10/03/18 10/03/18 10/03/18 19:40 20:55 21:48 WBC RBC Hgb Hct MCV MCH MCHC RDW Plt Count MPV Gran % Lymph % (Auto) [place] % (Auto) Eos % (Auto) Baso % (Auto) Gran # Lymph # (Auto) [place] # (Auto) Eos # (Auto) Baso # (Auto) Retic Count PT INR APTT pO2 66 H VBG pH 7.32 VBG pCO2 49.0 VBG HCO3 25.2 VBG Total CO2 26.7 VBG O2 Sat (Calc) 93.1 H VBG Base Excess -1.4 L VBG Potassium 4.1 Glucose 92 Lactate 2.9 H FiO2 21.0 Sodium 139.0 Potassium Chloride 102.0 Carbon Dioxide Anion Gap BUN Creatinine Est GFR ( Amer) Est GFR (Non-Af Amer) POC Glucose (mg/dL) Random Glucose Calcium Phosphorus Magnesium Iron TIBC % Saturation Total Bilirubin AST ALT Alkaline Phosphatase Troponin I NT-Pro-B Natriuret Pep Total Protein Albumin Globulin Albumin/Globulin Ratio Lipase TSH 3rd Generation 1.27 Venous Blood Potassium 4.1 Urine Color Light yellow Urine Appearance Clear Urine pH 6.0 Ur Specific [place] 1.010 Urine Protein Negative Urine Glucose (UA) Negative Urine Ketones Negative Urine Blood Trace-intact H Urine Nitrate Negative Urine Bilirubin Negative Urine Urobilinogen 0.2 Ur Leukocyte Esterase Negative Urine RBC 0 - 2 Urine WBC 0 - 2 Ur Epithelial Cells None 10/04/18 10/04/18 10/04/18 00:30 00:45 06:30 WBC 7.1 D RBC 3.97 Hgb 10.5 L Hct 33.8 L MCV 85.1 MCH 26.4 MCHC 31.1 RDW 14.6 H Plt Count 256 MPV 9.1 Gran % 82.9 H Lymph % (Auto) 9.9 L [place] % (Auto) 6.8 H Eos % (Auto) 0.3 L Baso % (Auto) 0.1 Gran # 5.89 Lymph # (Auto) 0.7 L [place] # (Auto) 0.5 Eos # (Auto) 0.0 Baso # (Auto) 0.01 Retic Count PT INR APTT pO2 32 VBG pH 7.33 VBG pCO2 54.0 VBG HCO3 28.5 H VBG Total CO2 30.2 H VBG O2 Sat (Calc) 59.7 VBG Base Excess 1.5 VBG Potassium 3.9 Glucose 167 H Lactate 1.3 FiO2 21.0 Sodium 138.0 Potassium Chloride 102.0 Carbon Dioxide Anion Gap BUN Creatinine Est GFR ( Amer) Est GFR (Non-Af Amer) POC Glucose (mg/dL) 147 H Random Glucose Calcium Phosphorus Magnesium Iron TIBC % Saturation Total Bilirubin AST ALT Alkaline Phosphatase Troponin I NT-Pro-B Natriuret Pep Total Protein Albumin Globulin Albumin/Globulin Ratio Lipase TSH 3rd Generation Venous Blood Potassium 3.9 Urine Color Urine Appearance Urine pH Ur Specific [place] Urine Protein Urine Glucose (UA) Urine Ketones Urine Blood Urine Nitrate Urine Bilirubin Urine Urobilinogen Ur Leukocyte Esterase Urine RBC Urine WBC Ur Epithelial Cells 10/04/18 10/04/18 10/04/18 06:30 08:00 08:00 WBC RBC Hgb Hct MCV MCH MCHC RDW Plt Count MPV Gran % Lymph % (Auto) [place] % (Auto) Eos % (Auto) Baso % (Auto) Gran # Lymph # (Auto) [place] # (Auto) Eos # (Auto) Baso # (Auto) Retic Count 1.24 PT INR APTT pO2 VBG pH VBG pCO2 VBG HCO3 VBG Total CO2 VBG O2 Sat (Calc) VBG Base Excess VBG Potassium Glucose Lactate FiO2 Sodium 137 Potassium 4.0 Chloride 103 Carbon Dioxide 27 Anion Gap 12 BUN 16 Creatinine 0.8 Est GFR ( Amer) > 60 Est GFR (Non-Af Amer) > 60 POC Glucose (mg/dL) Random Glucose 186 H Calcium 9.2 Phosphorus 3.8 Magnesium 1.4 L Iron TIBC % Saturation Total Bilirubin 0.3 AST 25 ALT 29 Alkaline Phosphatase 61 Troponin I NT-Pro-B Natriuret Pep Total Protein 7.2 Albumin 4.2 Globulin 3.0 Albumin/Globulin Ratio 1.4 Lipase TSH 3rd Generation 0.92 Venous Blood Potassium Urine Color Urine Appearance Urine pH Ur Specific [place] Urine Protein Urine Glucose (UA) Urine Ketones Urine Blood Urine Nitrate Urine Bilirubin Urine Urobilinogen Ur Leukocyte Esterase Urine RBC Urine WBC Ur Epithelial Cells 10/04/18 08:00 WBC RBC Hgb Hct MCV MCH MCHC RDW Plt Count MPV Gran % Lymph % (Auto) [place] % (Auto) Eos % (Auto) Baso % (Auto) Gran # Lymph # (Auto) [place] # (Auto) Eos # (Auto) Baso # (Auto) Retic Count PT INR APTT pO2 VBG pH VBG pCO2 VBG HCO3 VBG Total CO2 VBG O2 Sat (Calc) VBG Base Excess VBG Potassium Glucose Lactate FiO2 Sodium Potassium Chloride Carbon Dioxide Anion Gap BUN Creatinine Est GFR ( Amer) Est GFR (Non-Af Amer) POC Glucose (mg/dL) Random Glucose Calcium Phosphorus Magnesium Iron 44 L TIBC 352 % Saturation 12 L Total Bilirubin AST ALT Alkaline Phosphatase Troponin I NT-Pro-B Natriuret Pep Total Protein Albumin Globulin Albumin/Globulin Ratio Lipase TSH 3rd Generation Venous Blood Potassium Urine Color Urine Appearance Urine pH Ur Specific [place] Urine Protein Urine Glucose (UA) Urine Ketones Urine Blood Urine Nitrate Urine Bilirubin Urine Urobilinogen Ur Leukocyte Esterase Urine RBC Urine WBC Ur Epithelial Cells Attending/Attestation - Attestation I have personally seen and examined this patient.: Yes I have fully participated in the care of the patient.: Yes I have reviewed all pertinent clinical information: Yes Notes (Text): 10/04/18 11:44 I have seen and examined patient with GI fellow. Agree with above documentation with the following additions. In brief, this is a 73 year old female with history of atrial fibrillation on eliquis, HTN, GERD, who presents to hospital with complaint of progressive dysphagia. She notes worsening symptoms over the past 3-4 days, mainly with solid foods and has a sensation that food gets "stuck" while pointing to her neck. Despite this, she claims that day before arrival to hospital she was able to eat [place] without any difficulty. She does report two episodes of non-bloody emesis but otherwise denies odynophagia, weight loss, abdominal pain, or change in bowel habits. She claims to have had an EGD a few years ago which was normal, colonoscopy in 2017 showed sigmoid polyp. Dysphagia HTN GERD Atrial fibrillation on eliquis - Case discussed at bedside with PERMANENT MOLD SUPERVISOR, patient may have full liquid diet with nectar thick, though remains high risk for aspiration - CT imaging of neck reviewed by me showing no gross abnormalities - Suggest ENT evaluation given potential vocal cord dysfunction as per PERMANENT MOLD SUPERVISOR assessment - Would also recommend modified barium swallow for further evaluation - Continue with PPI therapy - No planned GI intervention at this time, will continue to monitor patient cli nical course
[2018-10-04] MEDS ORDERED: Piperacillin/Tazobact 3.375 gm 100 ML IVPB SCH (10:00)
[2018-10-04] MEDS: Piperacillin/Tazobact 3.375 gm 100 ML IVPB SCH ×2 (14:22→21:22)
--- NOTE | 2018-10-04 18:41 | CARD ---
APPROVED REPORT Date of service: 10/04/2018 EKG Measurement Heart [id number] [id number] <Conclusion> Atrial fibrillation with rapid ventricular rate Left axis deviation Left bundle branch block Abnormal ECG
[2018-10-04] MEDS ORDERED: Magnesium Sulfate 2 gm/50 ml 2 GM/50 ML BAG IVPB ONE (18:50)
[2018-10-04] MEDS ORDERED: Vancomycin 1gm in NS 250ml 1 GM/250 ML BAG IVPB STA (18:54)
[2018-10-04] MEDS: Sodium Chloride 0.9% 1,000 ML IV SCH (19:10)
[2018-10-04 19:17] LABS: VENOUS BLOOD GAS BASE EXCESS 3.4 mmol/L (0.0-2.0); VENOUS BLOOD GAS PO2 81 mm/Hg (30-55); VENOUS BLOOD PH 7.42 (7.32-7.43)
[2018-10-04 19:29] LABS: BASO # 0.02 K/mm3 (0.0-2.0); BASO % 0.3 % (0.0-3.0); EOS % 0.2 % (1.5-5.0); GRAN # 5.24 (1.4-6.5); GRAN % 83.8 % (50.0-68.0); HEMOGLOBIN 9.9 g/dL (12.0-16.0); LYMPH # 0.7 (1.2-3.4); LYMPH % 11.4 % (22.0-35.0); MEAN CELL VOLUME 83.8 fl (80.0-105.0); MEAN CORPUSCULAR HEMOGLOBIN 26.3 pg (25.0-35.0); MEAN CORPUSCULAR HGB CONC 31.4 g/dl (31.0-37.0); MEAN PLATELET VOLUME 9.4 fl (7.0-11.0); MONO # 0.3 (0.1-0.6); MONO % 4.3 % (1.0-6.0); RBC 3.76 10^6/uL (3.5-6.1); RED CELL DISTRIBUTION WIDTH 14.6 % (11.5-14.5); WHITE BLOOD COUNT 6.3 10^3/uL (4.5-11.0)
[2018-10-04 19:32] LABS: ALB/GLOB RATIO 1.3 (1.1-1.8); ALBUMIN 3.8 g/dL (3.0-4.8); ALT/SGPT 38 U/L (7-56); AST/SGOT 29 U/L (14-36); BLOOD UREA NITROGEN 15 mg/dL (7-21); CALCIUM 8.3 mg/dL (8.4-10.5); GFR NON-AFRICAN AMERICAN > 60
[2018-10-04 19:37] LABS: TROPONIN I 0.03 ng/mL
--- NOTE | 2018-10-04 20:02 | PCM.RRT ---
<Heath Stanley - Last Filed: 10/04/18 19:59> AUTOMOTIVE LEASING SALES REPRESENTATIVE Nurse Assessment - Situation Date: 10/04/18 Time AUTOMOTIVE LEASING SALES REPRESENTATIVE was called: 18:40 AUTOMOTIVE LEASING SALES REPRESENTATIVE Responder Arrival Time: 18:42 AUTOMOTIVE LEASING SALES REPRESENTATIVE Location:: [address] [place] [address] Room Number: [id number] AUTOMOTIVE LEASING SALES REPRESENTATIVE Reason for Call: Not Responding to Urgent Treatment AUTOMOTIVE LEASING SALES REPRESENTATIVE Called By: RN - IV IV Inserted during AUTOMOTIVE LEASING SALES REPRESENTATIVE?: No - Respiratory Oxygen Delivery Method: Nasal Cannula @L/min Oxygen Flow Rate: 4 - Medication Medications Administered During AUTOMOTIVE LEASING SALES REPRESENTATIVE: magnesium sulfate 2gm, 0.9ns @ 100 - Diagnostic Test Ordered EKG: Yes Chest X-Ray: Yes - Stat Labs Ordered AUTOMOTIVE LEASING SALES REPRESENTATIVE Stat Labs Ordered: CBC, TROPONIN AUTOMOTIVE LEASING SALES REPRESENTATIVE Other Labs Ordered: cbc, vbg shock panel CPR started during AUTOMOTIVE LEASING SALES REPRESENTATIVE?: No - Vital Signs Vital Sign: Rapid Response Vital Sign Blood Pressure 133/64 Pulse Rate 91 Respiratory Rate 20 Temperature 103.4 F Oxygen Saturation 91 - Finger Stick Blood Glucose Finger Stick Blood Glucose: 268 - Sepsis Screen Part 1 Sepsis Screen Part 1: Temperature over 100.6F - Sepsis Screen Part 2 Sepsis Screen Part 2: Glucose elevated, Pt not on steroids - Time AUTOMOTIVE LEASING SALES REPRESENTATIVE Ended Time AUTOMOTIVE LEASING SALES REPRESENTATIVE Ended: 18:54 - Vital Signs at end of AUTOMOTIVE LEASING SALES REPRESENTATIVE Vital Signs at end of AUTOMOTIVE LEASING SALES REPRESENTATIVE: Rapid Response End Vital Sign Blood Pressure 133/64 Pulse Rate 85 Respiratory Rate 20 Temperature 103.4 F O2 Sat by Pulse Oximetry 94 - Recommendations Notifications: Attending Physician I.Reason for AUTOMOTIVE LEASING SALES REPRESENTATIVE - A) Acute Change in Patient: Subjective: 73 y/o female with PMH of HTN, DM, HLD presents to the hospital with 5 days of difficulty swallowing had AUTOMOTIVE LEASING SALES REPRESENTATIVE called by nursing staff for altered mental status and elevated temperature of 103.8. Patient's vitals were pulse of 84, BP of 133/64, RR 24 and O2 sat of 91% on 5L NC. During evaluation she was AOx3 and did not seem to be confused or altered but did appear anxious. She states she has been feeling warm all day but did not admit to any acute change in symptoms or pain. She denies CP, SOB, back pain, abdominal pain, urinary complaints, numbness, tingling, swelling and cough. - Respiratory Oxygen Delivery Method: Nasal Cannula @L/min Oxygen Flow Rate: 4 - Constitutional Appears: No Acute Distress Additional Comments: anxious - Head Head Exam: ATRAUMATIC, NORMAL INSPECTION - Eyes Eye Exam: EOMI, PERRL - Respiratory Exam Respiratory Exam: Clear to Ausculation Bilateral, NORMAL BREATHING PATTERN. absent: Accessory Muscle Use, Wheezes, Respiratory Distress - Cardiovascular Exam Cardiovascular Exam: REGULAR RHYTHM, +S1, +S2 - GI/Abdominal Exam GI & Abdominal Exam: Soft, Normal Bowel Sounds. absent: Guarding, Rigid, Ten derness - Neurological Exam Neurological Exam: Alert, CN II-XII Intact, Oriented x3 - Extremities Exam Extremities Exam: Normal Inspection. absent: Calf Tenderness, Tenderness Plan - Assessment of Findings&Treatment Plan This is a 73 year old female with PMH of HTN, DM, HLD presents to the hospital for management for dysphagia who had a AUTOMOTIVE LEASING SALES REPRESENTATIVE called for elevated temperature of 103.8F and altered mental status. Plan: -cbc, cmp -mg, phos -replaced mg -trop -cxr -ua -blood cx -NS 100 -EKG -started on vanc, on zosyn previously -ABG ordered - lactate WNL, no code sepsis called <Autumn Peters - Last Filed: 10/05/18 15:55> AUTOMOTIVE LEASING SALES REPRESENTATIVE Nurse Assessment - Vital Signs Vital Sign: Rapid Response Vital Sign Blood Pressure 133/64 Pulse Rate 91 Respiratory Rate 20 Temperature 103.4 F Oxygen Saturation 91 - Vital Signs at end of AUTOMOTIVE LEASING SALES REPRESENTATIVE Vital Signs at end of AUTOMOTIVE LEASING SALES REPRESENTATIVE: Rapid Response End Vital Sign Blood Pressure 133/64 Pulse Rate 85 Respiratory Rate 20 Temperature 103.4 F O2 Sat by Pulse Oximetry 94 Attending/Attestation - Attestation I have personally seen and examined this patient.: Yes I have fully participated in the care of the patient.: Yes I have reviewed all pertinent clinical information, including history, physical exam and plan: Yes Notes (Text): Attending note; Patient seen and examined during rapid response. Response for fever and tachycardia. Patient is febrile. Tachycardia is resolving. Possible sepsis/pneumonia suspected. Chest x-ray ordered. Started on Tamiflu. Flu screen ordered. patient with a history of A. fib. Currently heart rate is controlled with po Cardizem. Started on Zosyn and vancomycin. Plan culture ordered. Monitor closely in telemetry.
--- NOTE | 2018-10-04 20:15 | CARD ---
APPROVED REPORT Date of service: 10/03/2018 EKG Measurement Heart [id number] <Conclusion> Atrial fibrillation with rapid ventricular response Left bundle branch block Abnormal ECG
[2018-10-05] MEDS: Levalbuterol 0.63 MG/3 ML Inhal Soln UD IH PRN ×2 (04:43→05:47)
[2018-10-05] MEDS: Sodium Chloride 0.9% 1,000 ML IV SCH (04:59)
[2018-10-05] MEDS: Piperacillin/Tazobact 3.375 gm 100 ML IVPB SCH ×3 (04:59→21:28)
[2018-10-05 06:19] LABS: ARTERIAL BLOOD GAS HCO3 25.5 mmol/L (21-28); ARTERIAL BLOOD GAS HEMOGLOBIN 10.3 g/dL (11.7-17.4); ARTERIAL BLOOD GAS O2 CAPACITY 14.6 mL/dl (16-24); ARTERIAL BLOOD GAS O2 CONTENT 14.2 ML/dl (15-23); ARTERIAL BLOOD GAS O2 SAT 97.1 % (95-98); ARTERIAL BLOOD GAS PCO2 53 mm/Hg (35-45); ARTERIAL BLOOD GAS PH 7.29 (7.35-7.45); ARTERIAL BLOOD GAS TCO2 27.1 mmol.L (22-28)
--- NOTE | 2018-10-05 07:05 | CP.PCM.PN ---
<Zeke Matias - Last Filed: 10/05/18 13:25> Subjective - Date & Time of Evaluation Date of Evaluation: 10/05/18 Time of Evaluation: 06:59 - Subjective Subjective: HIDE INSPECTOR AND SORTER called overnight; for SOB and desaturation last night. Given stat breathing treatment; and placed on non-rebreather, She was started on Bipap, given lasix. Objective - Vital Signs/Intake and Output Vital Signs (last 24 hours): Temp Pulse Resp BP Pulse Ox 98.6 F 140 H 18 165/85 H 98 10/05/18 00:01 10/05/18 06:48 10/05/18 00:01 10/05/18 06:00 10/05/18 00:01 Intake and Output: 10/04/18 10/05/18 18:59 06:59 Intake Total 100 420 Output Total 2 Balance 100 418 - Medications Medications: Current Medications Acetaminophen (Tylenol 325mg Tab) 650 mg PO Q6H PRN PRN Reason: Temperature Albuterol/Ipratropium (Duoneb 3 Mg/0.5 Mg (3 Ml) Ud) 3 ml INH [id number] PRN PRN Reason: Shortness of Breath Last Admin: 10/05/18 05:47 Dose: 3 ml Amitriptyline HCl (Elavil) 75 mg PO HS [facility] Last Admin: 10/04/18 21:22 Dose: 75 mg Amlodipine Besylate (Norvasc) 10 mg PO DAILY [facility] Last Admin: 10/04/18 09:35 Dose: Not Given Apixaban (Eliquis) 2.5 mg PO BID [facility]; Protocol Last Admin: 10/04/18 00:40 Dose: Not Given Arformoterol Tartrate (Brovana) 15 mcg IH [id number] [facility] Last Admin: 10/04/18 19:37 Dose: 15 mcg Aspirin (Ecotrin) 81 mg PO DAILY [facility] Last Admin: 10/04/18 09:34 Dose: Not Given Atorvastatin Calcium (Lipitor) 10 mg PO HS [facility] Last Admin: 10/04/18 21:22 Dose: 10 mg Budesonide (Pulmicort Respules) 0.5 mg INH [id number] [facility] Last Admin: 10/04/18 19:37 Dose: 0.5 mg Carvedilol (Coreg) 25 mg PO BID [facility] Last Admin: 10/04/18 17:36 Dose: 25 mg Diltiazem HCl (Cardizem) 30 mg PO QID [facility] Last Admin: 10/04/18 21:23 Dose: 30 mg Enoxaparin Sodium (Lovenox) 70 mg SC Q12H [facility]; Protocol Last Admin: 10/04/18 21:19 Dose: 70 mg Gabapentin (Neurontin) 300 mg PO BID [facility]; Protocol Last Admin: 10/04/18 17:36 Dose: 300 mg Glipizide (Glucotrol) 10 mg PO BID [facility] Last Admin: 10/04/18 17:36 Dose: 10 mg Piperacillin Sod/Tazobactam Sod (Zosyn 3.375 In Ns 100ml) 100 mls @ 25 mls/hr IVPB Q8 [facility]; Protocol Stop: 10/13/18 14:01 Last Admin: 10/05/18 04:59 Dose: 25 mls/hr Sodium Chloride (Sodium Chloride 0.9%) 1,000 mls @ 100 mls/hr IV .Q10H [facility] Last Admin: 10/05/18 04:59 Dose: 100 mls/hr Levalbuterol HCl (Xopenex) 0.63 mg IH [id number] PRN PRN Reason: Shortness of Breath Last Admin: 10/05/18 05:47 Dose: 0.63 mg Lisinopril (Zestril) 10 mg PO DAILY [facility] Last Admin: 10/04/18 09:35 Dose: Not Given Non-Formulary Medication (Vitamin A [Vitamin A]) 8,000 unit PO DAILY [facility] Oseltamivir Phosphate (Tamiflu Cap) 30 mg PO BID [facility]; Protocol Stop: 10/09/18 10:01 Last Admin: 10/04/18 19:13 Dose: 30 mg Pantoprazole Sodium (Protonix Inj) 40 mg IVP DAILY [facility] Last Admin: 10/04/18 09:35 Dose: Not Given Tolterodine Tartrate (Detrol) 2 mg PO BID [facility] Last Admin: 10/04/18 17:36 Dose: 2 mg - Labs Labs: 10/04/18 19:00 10/04/18 19:00 PT 19.2 SECONDS (9.4-12.5) H 10/03/18 19:40 INR 1.67 10/03/18 19:40 APTT 37.9 Seconds (25.1-36.5) H 10/03/18 19:40 - Constitutional Appears: Non-toxic, No Acute Distress - Head Exam Head Exam: ATRAUMATIC, NORMOCEPHALIC - Eye Exam Eye Exam: EOMI, Normal appearance, PERRL - ENT Exam ENT Exam: Mucous Membranes Dry - Respiratory Exam Additional comments: Diffuse crackles, ronchi bilaterally, diffuse wheezes bilaterally - Cardiovascular Exam Cardiovascular Exam: RRR, +S1, +S2. absent: Murmur - GI/Abdominal Exam GI & Abdominal Exam: Soft, Normal Bowel Sounds. absent: Tenderness - Extremities Exam Additional comments: 2+ Distal Pulses Bilaterally - Neurological Exam Neurological Exam: Alert, Awake, CN II-XII Intact, Oriented x3 - Psychiatric Exam Psychiatric exam: Normal Affect, Normal Mood - Skin Skin Exam: Dry, Intact, Normal Color, Warm Assessment and Plan - Assessment and Plan (Free Text) Assessment: 73F w/ PMH HTN, DM, HLD, Afib (AC w/ Eliquis), HTN presented to [facility] on 10/03 w/ complaints of dysphagia 5 days prior to admission. CTAP in the ED was suggestive of achalasia; and GI was consulted. Hospital course complicated by HIDE INSPECTOR AND SORTER for fevers + confusion. Plan: Dysphagia: - CT neck w/o contrast (10/03): No mass, no oropharyngeal nasopharyngeal obstruction. Air filled proximal visualized esphagus, possible achalasia - CT A/P w/contrast (10/03): Thick walled fluid filled duodenum and loops of jejunum as well as ileum compatible with enteritis - Swallow Eval - Patient to be trialed on full liquids/ nectar thick diet. - Started on nectar thick full liquid diet ; Full aspiration precautions; maintain HOB 45deg; - Will get modified barium swallow; Most likely 10/05, will need to coordinate w/ MOLDING MACHINE TENDER - C/w Protonix - GI following, appreciate reccs - ENT consulted, appreciate reccs Pneumonia w/ Resp Failure - CAP vs Flu vs Aspiration Currently on O2 Previous Echo 03/2018 - showed normal EF w/ 56%; Mild TR; Mild Pulm HTN FLU +; ProCal pending Zosyn Tamiflu Hx Afib HR Uncontrolled on and off throughout the day; Throughout past 24H has received cardizem IVP x1 digoxin given this morning Increase Cardizem PO 60 TID RONNY Initially started on therapeutic lovenox given patient was NPO Will DC Lovenox today; and Start Home Eliquis Hx DM w/ Neuropathy ISS-Med ACHS C/w Home Glipizide C/w Home Gabapentin Hx HLD C/w Home Lipitor 10 HS Hx HTN C/w Home Coreg 25 BID C/w Home Norvasc 10 QD C/w Lisinopril 10 QD Hypomag Replete now; Recheck in AM Dispo: SPoke w/ daughter Chayito today, reported that pt. lives alone however has a visiting home health aid. Is able to manage ADLs w/ help of aid prior to admission. <Autumn Peters - Last Filed: 10/05/18 16:05> Objective - Vital Signs/Intake and Output Vital Signs (last 24 hours): Temp Pulse Resp BP Pulse Ox 98.6 F 75 18 165/85 H 98 10/05/18 00:01 10/05/18 15:13 10/05/18 00:01 10/05/18 10:27 10/05/18 00:01 Intake and Output: 10/05/18 10/05/18 06:59 18:59 Intake Total 420 Output Total 2 Balance 418 - Medications Medications: Current Medications Acetaminophen (Tylenol 325mg Tab) 650 mg PO Q6H PRN PRN Reason: Temperature Last Admin: 10/05/18 10:23 Dose: 650 mg Albuterol/Ipratropium (Duoneb 3 Mg/0.5 Mg (3 Ml) Ud) 3 ml INH [id number] [facility] Amitriptyline HCl (Elavil) 75 mg PO HS [facility] Last Admin: 10/04/18 21:22 Dose: 75 mg Amlodipine Besylate (Norvasc) 10 mg PO DAILY [facility] Last Admin: 10/05/18 10:27 Dose: 10 mg Apixaban (Eliquis) 2.5 mg PO BID [facility]; Protocol Last Admin: 10/05/18 10:32 Dose: 2.5 mg Arformoterol Tartrate (Brovana) 15 mcg IH [id number] [facility] Last Admin: 10/05/18 07:38 Dose: 15 mcg Aspirin (Ecotrin) 81 mg PO DAILY [facility] Last Admin: 10/05/18 10:28 Dose: 81 mg Atorvastatin Calcium (Lipitor) 10 mg PO HS [facility] Last Admin: 10/04/18 21:22 Dose: 10 mg Budesonide (Pulmicort Respules) 0.5 mg INH [id number] [facility] Last Admin: 10/05/18 07:38 Dose: 0.5 mg Carvedilol (Coreg) 25 mg PO BID [facility] Last Admin: 10/05/18 10:24 Dose: 25 mg Diltiazem HCl (Cardizem) 60 mg PO TID [facility] Last Admin: 10/05/18 15:13 Dose: 60 mg Gabapentin (Neurontin) 300 mg PO BID [facility]; Protocol Last Admin: 10/05/18 10:32 Dose: 300 mg Glipizide (Glucotrol) 10 mg PO BID [facility] Last Admin: 10/05/18 10:24 Dose: 10 mg Piperacillin Sod/Tazobactam Sod (Zosyn 3.375 In Ns 100ml) 100 mls @ 25 mls/hr IVPB Q8 [facility]; Protocol Stop: 10/13/18 14:01 Last Admin: 10/05/18 15:05 Dose: 25 mls/hr Insulin Human Regular (Humulin R Med) 0 units SC ACHS [facility]; Protocol Last Admin: 10/05/18 12:19 Dose: 10 units Levalbuterol HCl (Xopenex) 0.63 mg IH [id number] PRN PRN Reason: Shortness of Breath Last Admin: 10/05/18 05:47 Dose: 0.63 mg Lisinopril (Zestril) 10 mg PO DAILY [facility] Last Admin: 10/05/18 10:25 Dose: 10 mg Home Med - Vitamin A [Vitamin A] 8,000 Unit 8,000 unit PO DAILY [facility] Last Admin: 10/05/18 12:21 Dose: Not Given Oseltamivir Phosphate (Tamiflu Cap) 30 mg PO BID [facility]; Protocol Stop: 10/09/18 10:01 Last Admin: 10/05/18 10:25 Dose: 30 mg Pantoprazole Sodium (Protonix Inj) 40 mg IVP DAILY [facility] Last Admin: 10/05/18 10:25 Dose: 40 mg Tolterodine Tartrate (Detrol) 2 mg PO BID [facility] Last Admin: 10/05/18 10:22 Dose: 2 mg - Labs Labs: 10/05/18 08:00 10/05/18 08:00 PT 19.2 SECONDS (9.4-12.5) H 12/24/18 19:40 INR 1.67 10/03/18 19:40 APTT 37.9 Seconds (25.1-36.5) H 10/03/18 19:40 Attending/Attestation - Attestation I have personally seen and examined this patient.: Yes I have fully participated in the care of the patient.: Yes I have reviewed all pertinent clinical information, including history, physical exam and plan: Yes Notes (Text): 10/05/18 15:56 Attending note; Patient seen and examined with resident. Patient is alert and awake. Oriented to place and time. Complaining of cough and shortness of breath with exertion. Denies any chest pain. Denies any abdominal pain, nausea, vomiting. Patient had MAXIMUM TEMPERATURE of 103 and tachycardia. Tachycardia is resolving. fever is resolving. Patient is a 73-year-old female with PMH HTN, DM, HLD, Afib on Eliquis, HTN presented initially admitted for dysphagia. Patient had low-grade temperatures in the ER. Had a temperature of 103 yesterday with sepsis. 1. Influenza A/pneumonia; fever is resolving. on Respiratory isolation. Continue Tamiflu . Plan culture ordered. chest x-ray is positive for atypical pneumonitis. ID evaluation appreciated. Continue Zosyn. 2. Dysphagia; CT neck showed No mass, no oropharyngeal nasopharyngeal obstruction. Air filled proximal visualized esphagus, possible achalasia. CT abdomen and pelvis showed Thick walled fluid filled duodenum and loops of jejunum as well as ileum compatible with enteritis patient was evaluated by speech and swallow yesterday. Started on liquid diet with aspiration precautions. Possible aspiration pneumonitis. Continue Zosyn. 3.GI evaluation appreciated; barium swallow recommended. 4. A. fib; dosage of Cardizem increased. Cardiology evaluation appreciated. Continue Eliquis. 5. Hypertention; continue Norvasc, Coreg and Cardizem. Pending barium swallow evaluation. Monitor closely in telemetry. Upon discharge patient will follow up with PMD Dr. Bing Cabezas. 10/05/18 16:04
[2018-10-05] MEDS ORDERED: Digoxin 500 mcg/2ml (0.5 mg/2ml) Inj IVP ONE (07:26)
[2018-10-05] MEDS: Arformoterol 15 mcg/2 ml Inh Sol IH SCH ×2 (07:38→19:32)
[2018-10-05] MEDS: Budesonide 0.5 mg/2 ml Inhal Susp UD INH SCH ×2 (07:38→19:32)
--- NOTE | 2018-10-05 07:44 | RAD ---
Date of service: 10/05/2018 HISTORY: resp distress COMPARISON: Portable chest 10/04/2018. FINDINGS: LUNGS: Nonspecific patchy density right infrahilar space with left retrocardiac linear atelectasis or fibrosis present. Ground-glass opacity appears to be developing at the inferior margins right upper lobe accentuating the minor fissure. Reticular markings appears slightly increased diffusely. PLEURA: No significant pleural effusion identified, no pneumothorax apparent. CARDIOVASCULAR: No aortic atherosclerotic calcification present. Cardiac size appears more prominent could be a function of technical magnification. Hilar vascular markings do not appear overtly increased however an element of pulmonary vascular congestion is questioned given diffuse reticular markings. OSSEOUS STRUCTURES: No significant abnormalities. VISUALIZED UPPER ABDOMEN: Normal. OTHER FINDINGS: None. IMPRESSION: Variable pattern of diffusely increased reticular changes and right-sided pulmonary opacity are identified suspicious for potential atypical pneumonitis or possible pulmonary vascular congestion. Clinically correlate.
[2018-10-05 08:24] LABS: BASO # 0.01 K/mm3 (0.0-2.0); BASO % 0.1 % (0.0-3.0); GRAN # 6.67 (1.4-6.5); GRAN % 89.9 % (50.0-68.0); HEMOGLOBIN 10.5 g/dL (12.0-16.0); LYMPH # 0.7 (1.2-3.4); LYMPH % 8.8 % (22.0-35.0); MEAN CELL VOLUME 83.8 fl (80.0-105.0); MEAN CORPUSCULAR HEMOGLOBIN 26.2 pg (25.0-35.0); MEAN CORPUSCULAR HGB CONC 31.3 g/dl (31.0-37.0); MONO # 0.1 (0.1-0.6); MONO % 1.2 % (1.0-6.0); RBC 4.01 10^6/uL (3.5-6.1); RED CELL DISTRIBUTION WIDTH 14.3 % (11.5-14.5); WHITE BLOOD COUNT 7.4 10^3/uL (4.5-11.0)
--- NOTE | 2018-10-05 08:25 | RAD ---
Date of service: 10/04/2018 HISTORY: STAFF NURSE ICU RESOURCE TEAM COMPARISON: Portable chest 10/03/2018. FINDINGS: LUNGS: There is interval increase in hilar vascular markings as well as reticular markings bilaterally suspicious for possible fluid overload/CHF. Atypical pneumonitis is a possibility though not favored. Clinically correlate further. Cardiac size appears stable in this portable chest. Limited patchy density is question at the left base. No right-sided infiltrate. PLEURA: No significant pleural effusion identified, no pneumothorax apparent. CARDIOVASCULAR: Calcific atherosclerotic changes are seen related to the thoracic aorta. See lung section above as well. OSSEOUS STRUCTURES: No significant abnormalities. VISUALIZED UPPER ABDOMEN: Normal. OTHER FINDINGS: None. IMPRESSION: Findings suspicious for developing active CHF/pulmonary edema. Alternatively, atypical pneumonitis is a possibility though not favored. Continued clinical and radiographic follow-up advised.
[2018-10-05 08:30] VITALS: PULSE 112
[2018-10-05 08:45] LABS: ALB/GLOB RATIO 1.3 (1.1-1.8)
--- NOTE | 2018-10-05 10:51 | CP.PCM.CON ---
<Jerome Mcdonald - Last Filed: 10/05/18 12:41> History of Present Illness - History of Present Illness History of Present Illness: 73 year old female with past medical history of HTN, DM, A-fib on eliquis, and HLD presents to the hospital for 5 days of progressive dysphagia. Patient states she was not feeling well and had 5 days of worsening of swallowing. Patient states she was able to tolerate liquids, but unable to fully tolerate solid foods. Patient states she has felt like she was choking multiple times. She also admits to worsening cough during this time. Patient denies chest pain, shortness of breath, nausea, vomiting, diarrhea, fever, chills, dysuria, weight loss. PMH: HTN, DM, A-fib on eliquis, and HLD PSH: None Social Hx: Denies alcohol, smoking, or illicit drug use Family Hx: Denies Meds: Reviewed, as per VERONICA Martinez: JHON Review of Systems - Review of Systems Review of Systems: 12 point ROS as per HPI, otherwise negative Past Patient History - Infectious Disease Hx of Infectious Diseases: None - Past Medical History & Family History Past Medical History?: Yes - Past Social History Smoking Status: Never Smoked - CARDIAC Hx Cardiac Disorders: Yes Hx Hypertension: Yes - PULMONARY Hx Respiratory Disorders: No Other/Comment: dyspnea on exertion - NEUROLOGICAL HX Cerebrovascular Accident: Yes - HEENT Hx Cataracts: Yes - RENAL Hx Chronic Kidney Disease: No - ENDOCRINE/METABOLIC Hx Diabetes Mellitus Type 2: Yes - HEMATOLOGICAL/ONCOLOGICAL Hx Anemia: Yes - INTEGUMENTARY Hx Dermatological Problems: No - MUSCULOSKELETAL/RHEUMATOLOGICAL Hx Falls: Yes - GASTROINTESTINAL Hx Gastroesophageal Reflux: Yes - GENITOURINARY/GYNECOLOGICAL Hx Genitourinary Disorders: No - PSYCHIATRIC Hx Anxiety: Yes Hx Depression: Yes - SURGICAL HISTORY Hx Cardiac Catheterization: Yes - ANESTHESIA Hx Anesthesia: Yes Hx Anesthesia Reactions: No Hx Malignant Hyperthermia: No Meds Allergies/Adverse Reactions: Allergies Allergy/AdvReac Type Severity Reaction Status Date / Time No Known Allergies Allergy Verified 10/03/18 19:23 - Medications Medications: Current Medications Acetaminophen (Tylenol 325mg Tab) 650 mg PO Q6H PRN PRN Reason: Temperature Last Admin: 10/05/18 10:23 Dose: 650 mg Albuterol/Ipratropium (Duoneb 3 Mg/0.5 Mg (3 Ml) Ud) 3 ml INH [id number] RONNY Amitriptyline HCl (Elavil) 75 mg PO HS [facility] Last Admin: 10/04/18 21:22 Dose: 75 mg Amlodipine Besylate (Norvasc) 10 mg PO DAILY [facility] Last Admin: 10/05/18 10:27 Dose: 10 mg Apixaban (Eliquis) 2.5 mg PO BID [facility]; Protocol Last Admin: 10/05/18 10:32 Dose: 2.5 mg Arformoterol Tartrate (Brovana) 15 mcg IH [id number] [facility] Last Admin: 10/05/18 07:38 Dose: 15 mcg Aspirin (Ecotrin) 81 mg PO DAILY [facility] Last Admin: 10/05/18 10:28 Dose: 81 mg Atorvastatin Calcium (Lipitor) 10 mg PO HS [facility] Last Admin: 10/04/18 21:22 Dose: 10 mg Budesonide (Pulmicort Respules) 0.5 mg INH [id number] [facility] Last Admin: 10/05/18 07:38 Dose: 0.5 mg Carvedilol (Coreg) 25 mg PO BID [facility] Last Admin: 10/05/18 10:24 Dose: 25 mg Diltiazem HCl (Cardizem) 60 mg PO TID [facility] Last Admin: 10/05/18 10:22 Dose: 60 mg Gabapentin (Neurontin) 300 mg PO BID [facility]; Protocol Last Admin: 10/05/18 10:32 Dose: 300 mg Glipizide (Glucotrol) 10 mg PO BID [facility] Last Admin: 10/05/18 10:24 Dose: 10 mg Piperacillin Sod/Tazobactam Sod (Zosyn 3.375 In Ns 100ml) 100 mls @ 25 mls/hr IVPB Q8 [facility]; Protocol Stop: 10/13/18 14:01 Last Admin: 10/05/18 04:59 Dose: 25 mls/hr Sodium Chloride (Sodium Chloride 0.9%) 1,000 mls @ 100 mls/hr IV .Q10H [facility] Last Admin: 10/05/18 04:59 Dose: 100 mls/hr Insulin Human Regular (Humulin R Med) 0 units SC ACHS [facility]; Protocol Levalbuterol HCl (Xopenex) 0.63 mg IH [id number] PRN PRN Reason: Shortness of Breath Last Admin: 10/05/18 05:47 Dose: 0.63 mg Lisinopril (Zestril) 10 mg PO DAILY [facility] Last Admin: 10/05/18 10:25 Dose: 10 mg Home Med - Vitamin A [Vitamin A] 8,000 Unit 8,000 unit PO DAILY [facility] Oseltamivir Phosphate (Tamiflu Cap) 30 mg PO BID [facility]; Protocol Stop: 10/09/18 10:01 Last Admin: 10/05/18 10:25 Dose: 30 mg Pantoprazole Sodium (Protonix Inj) 40 mg IVP DAILY [facility] Last Admin: 10/05/18 10:25 Dose: 40 mg Tolterodine Tartrate (Detrol) 2 mg PO BID [facility] Last Admin: 10/05/18 10:22 Dose: 2 mg Physical Exam - Constitutional Appears: Toxic, No Acute Distress - Head Exam Head Exam: ATRAUMATIC, NORMAL INSPECTION, NORMOCEPHALIC - Eye Exam Eye Exam: EOMI, Normal appearance - ENT Exam ENT Exam: Mucous Membranes Dry, Normal Exam - Respiratory Exam Respiratory Exam: Rhonchi (Diffuse), Wheezes (Diffuse), NORMAL BREATHING PATTERN. absent: Accessory Muscle Use, Decreased Breath Sounds - Cardiovascular Exam Cardiovascular Exam: Tachycardia, Irregular Rhythm, +S1, +S2 - GI/Abdominal Exam GI & Abdominal Exam: Normal Bowel Sounds, Soft. absent: Tenderness - Extremities Exam Extremities exam: Positive for: normal inspection. Negative for: calf tenderness, pedal edema - Neurological Exam Neurological exam: Alert, CN II-XII Intact, Oriented x3 - Psychiatric Exam Psychiatric exam: Normal Affect, Normal Mood - Skin Skin Exam: Intact, Normal Color, Warm Results - Vital Signs Recent Vital Signs: Last Vital Signs Temp 98.6 F 10/05/18 00:01 Pulse 120 H 10/05/18 10: Resp 18 10/05/18 00:01 BP 165/85 H 10/05/18 10:27 Pulse Ox 98 10/05/18 00:01 - Labs Result Diagrams: 10/05/18 08:00 10/05/18 08:00 Labs: Laboratory Results - last 24 hr 10/04/18 10/04/18 10/04/18 19:00 19:00 19:00 WBC 6.3 RBC 3.76 Hgb 9.9 L Hct 31.5 L MCV 83.8 MCH 26.3 MCHC 31.4 RDW 14.6 H Plt Count 254 MPV 9.4 Gran % 83.8 H Lymph % (Auto) 11.4 L Coos % (Auto) 4.3 Eos % (Auto) 0.2 L Baso % (Auto) 0.3 Gran # 5.24 Lymph # (Auto) 0.7 L [place] # (Auto) 0.3 Eos # (Auto) 0.0 Baso # (Auto) 0.02 pCO2 pO2 81 H HCO3 ABG pH ABG Total CO2 ABG O2 Saturation ABG O2 Content ABG Base Excess ABG Hemoglobin ABG Carboxyhemoglobin POC ABG HHb (Measured) ABG Methemoglobin ABG O2 Capacity VBG pH 7.42 VBG pCO2 44.0 VBG HCO3 28.5 H VBG Total CO2 29.9 H VBG O2 Sat (Calc) 95.7 H VBG Base Excess 3.4 H VBG Potassium 3.7 Hgb O2 Saturation Sodium 137.0 138 Chloride 102.0 103 Glucose 288 H Lactate 1.3 FiO2 21.0 Potassium 3.7 Carbon Dioxide 26 Anion Gap 12 BUN 15 Creatinine 0.9 Est GFR ( Amer) > 60 Est GFR (Non-Af Amer) > 60 Random Glucose 267 H Calcium 8.3 L Phosphorus 3.8 Magnesium 1.4 L Total Bilirubin 0.4 AST 29 ALT 38 Alkaline Phosphatase 57 Troponin I 0.03 D Total Protein 6.7 Albumin 3.8 Globulin 3.0 Albumin/Globulin Ratio 1.3 Venous Blood Potassium 3.7 Influenza Typ A,B (EIA) 10/04/18 10/05/18 10/05/18 19:30 06:09 08:00 WBC 7.4 RBC 4.01 Hgb 10.5 L Hct 33.6 L MCV 83.8 MCH 26.2 MCHC 31.3 RDW 14.3 Plt Count 233 MPV 9.0 Gran % 89.9 H Lymph % (Auto) 8.8 L Coos % (Auto) 1.2 Eos % (Auto) 0.0 L Baso % (Auto) 0.1 Gran # 6.67 H Lymph # (Auto) 0.7 L [place] # (Auto) 0.1 Eos # (Auto) 0.0 Baso # (Auto) 0.01 pCO2 53 H pO2 121.0 H HCO3 25.5 ABG pH 7.29 L ABG Total CO2 27.1 ABG O2 Saturation 97.1 ABG O2 Content 14.2 L ABG Base Excess -1.5 ABG Hemoglobin 10.3 L ABG Carboxyhemoglobin 0.1 L POC ABG HHb (Measured) 2.9 ABG Methemoglobin 0.2 ABG O2 Capacity 14.6 L VBG pH VBG pCO2 VBG HCO3 VBG Total CO2 VBG O2 Sat (Calc) VBG Base Excess VBG Potassium Hgb O2 Saturation 96.7 Sodium Chloride Glucose Lactate FiO2 100.0 Potassium Carbon Dioxide Anion Gap BUN Creatinine Est GFR ( Amer) Est GFR (Non-Af Amer) Random Glucose Calcium Phosphorus Magnesium Total Bilirubin AST ALT Alkaline Phosphatase Troponin I Total Protein Albumin Globulin Albumin/Globulin Ratio Venous Blood Potassium Influenza Typ A,B (EIA) Pos for influenza a H 10/05/18 08:00 WBC RBC Hgb Hct MCV MCH MCHC RDW Plt Count MPV Gran % Lymph % (Auto) Coos % (Auto) Eos % (Auto) Baso % (Auto) Gran # Lymph # (Auto) Coos # (Auto) Eos # (Auto) Baso # (Auto) pCO2 pO2 HCO3 ABG pH ABG Total CO2 ABG O2 Saturation ABG O2 Content ABG Base Excess ABG Hemoglobin ABG Carboxyhemoglobin POC ABG HHb (Measured) ABG Methemoglobin ABG O2 Capacity VBG pH VBG pCO2 VBG HCO3 VBG Total CO2 VBG O2 Sat (Calc) VBG Base Excess VBG Potassium Hgb O2 Saturation Sodium 138 Chloride 100 Glucose Lactate FiO2 Potassium 3.6 Carbon Dioxide 28 Anion Gap 14 BUN 18 Creatinine 1.1 Est GFR ( Amer) 59 Est GFR (Non-Af Amer) 49 Random Glucose 306 H* Calcium 8.0 L Phosphorus Magnesium Total Bilirubin 0.6 AST 46 H D ALT 40 Alkaline Phosphatase 63 Troponin I Total Protein 7.1 Albumin 4.0 Globulin 3.1 Albumin/Globulin Ratio 1.3 Venous Blood Potassium Influenza Typ A,B (EIA) Assessment & Plan - Assessment and Plan (Free Text) Plan: Influenza A R/O aspiration pneumonitis Hx of HTN Hx of A-fib with RVR Hx of HLD Plan Patient will be continued on Tamiflu and Zosyn at this time. Patient will have a MRSA nasal screen. Blood cultures negative at 24 hours, urine cultures are still pending. Procalcitonin is pending. Patient will go for swallowing study once cough is better controlled. Continue current medical regimen. Continue current diet. Follow up GI recommendations. Harry, PGY-3 <Rafael Guadarrama - Last Filed: 10/05/18 15:02> Meds - Medications Medications: Current Medications Acetaminophen (Tylenol 325mg Tab) 650 mg PO Q6H PRN PRN Reason: Temperature Last Admin: 10/05/18 10:23 Dose: 650 mg Albuterol/Ipratropium (Duoneb 3 Mg/0.5 Mg (3 Ml) Ud) 3 ml INH [id number] RONNY Amitriptyline HCl (Elavil) 75 mg PO HS [facility] Last Admin: 10/04/18 21:22 Dose: 75 mg Amlodipine Besylate (Norvasc) 10 mg PO DAILY [facility] Last Admin: 10/05/18 10:27 Dose: 10 mg Apixaban (Eliquis) 2.5 mg PO BID RONNY; Protocol Last Admin: 10/05/18 10:32 Dose: 2.5 mg Arformoterol Tartrate (Brovana) 15 mcg IH [id number] [facility] Last Admin: 10/05/18 07:38 Dose: 15 mcg Aspirin (Ecotrin) 81 mg PO DAILY [facility] Last Admin: 10/05/18 10:28 Dose: 81 mg Atorvastatin Calcium (Lipitor) 10 mg PO HS [facility] Last Admin: 10/04/18 21:22 Dose: 10 mg Budesonide (Pulmicort Respules) 0.5 mg INH [id number] [facility] Last Admin: 10/05/18 07:38 Dose: 0.5 mg Carvedilol (Coreg) 25 mg PO BID [facility] Last Admin: 10/05/18 10:24 Dose: 25 mg Diltiazem HCl (Cardizem) 60 mg PO TID [facility] Last Admin: 10/05/18 10:22 Dose: 60 mg Gabapentin (Neurontin) 300 mg PO BID [facility]; Protocol Last Admin: 10/05/18 10:32 Dose: 300 mg Glipizide (Glucotrol) 10 mg PO BID [facility] Last Admin: 10/05/18 10:24 Dose: 10 mg Piperacillin Sod/Tazobactam Sod (Zosyn 3.375 In Ns 100ml) 100 mls @ 25 mls/hr IVPB Q8 [facility]; Protocol Stop: 10/13/18 14:01 Last Admin: 10/05/18 04:59 Dose: 25 mls/hr Insulin Human Regular (Humulin R Med) 0 units SC ACHS [facility]; Protocol Last Admin: 10/05/18 12:19 Dose: 10 units Levalbuterol HCl (Xopenex) 0.63 mg IH [id number] PRN PRN Reason: Shortness of Breath Last Admin: 10/05/18 05:47 Dose: 0.63 mg Lisinopril (Zestril) 10 mg PO DAILY [facility] Last Admin: 10/05/18 10:25 Dose: 10 mg Home Med - Vitamin A [Vitamin A] 8,000 Unit 8,000 unit PO DAILY [facility] Last Admin: 10/05/18 12:21 Dose: Not Given Oseltamivir Phosphate (Tamiflu Cap) 30 mg PO BID [facility]; Protocol Stop: 10/09/18 10:01 Last Admin: 10/05/18 10:25 Dose: 30 mg Pantoprazole Sodium (Protonix Inj) 40 mg IVP DAILY [facility] Last Admin: 10/05/18 10:25 Dose: 40 mg Tolterodine Tartrate (Detrol) 2 mg PO BID [facility] Last Admin: 10/05/18 10:22 Dose: 2 mg Results - Vital Signs Recent Vital Signs: Last Vital Signs Temp 98.6 F 10/05/18 00:01 Pulse 120 H 10/05/18 10:25 Resp 18 10/05/18 00:01 BP 165/85 H 10/05/18 10:27 Pulse Ox 98 10/05/18 00:01 - Labs Result Diagrams: 10/05/18 08:00 10/05/18 08:00 Labs: Laboratory Results - last 24 hr 10/04/18 10/04/18 10/04/18 07:22 11:37 16:42 WBC RBC Hgb Hct MCV MCH MCHC RDW Plt Count MPV Gran % Lymph % (Auto) Coos % (Auto) Eos % (Auto) Baso % (Auto) Gran # Lymph # (Auto) [place]os # (Auto) Eos # (Auto) Baso # (Auto) pCO2 pO2 HCO3 ABG pH ABG Total CO2 ABG O2 Saturation ABG O2 Content ABG Base Excess ABG Hemoglobin ABG Carboxyhemoglobin POC ABG HHb (Measured) ABG Methemoglobin ABG O2 Capacity VBG pH VBG pCO2 VBG HCO3 VBG Total CO2 VBG O2 Sat (Calc) VBG Base Excess VBG Potassium Hgb O2 Saturation Sodium Chloride Glucose Lactate FiO2 Potassium Carbon Dioxide Anion Gap BUN Creatinine Est GFR ( Amer) Est GFR (Non-Af Amer) POC Glucose (mg/dL) 178 H 180 H 265 H Random Glucose Calcium Phosphorus Magnesium Total Bilirubin AST ALT Alkaline Phosphatase Troponin I Total Protein Albumin Globulin Albumin/Globulin Ratio Procalcitonin Venous Blood Potassium Influenza Typ A,B (EIA) 10/04/18 10/04/18 10/04/18 18:47 19:00 19:00 WBC RBC Hgb Hct MCV MCH MCHC RDW Plt Count MPV Gran % Lymph % (Auto) Coos % (Auto) Eos % (Auto) Baso % (Auto) Gran # Lymph # (Auto) Coos # (Auto) Eos # (Auto) Baso # (Auto) pCO2 pO2 81 H HCO3 ABG pH ABG Total CO2 ABG O2 Saturation ABG O2 Content ABG Base Excess ABG Hemoglobin ABG Carboxyhemoglobin POC ABG HHb (Measured) ABG Methemoglobin ABG O2 Capacity VBG pH 7.42 VBG pCO2 44.0 VBG HCO3 28.5 H VBG Total CO2 29.9 H VBG O2 Sat (Calc) 95.7 H VBG Base Excess 3.4 H VBG Potassium 3.7 Hgb O2 Saturation Sodium 137.0 138 Chloride 102.0 103 Glucose 288 H Lactate 1.3 FiO2 21.0 Potassium 3.7 Carbon Dioxide 26 Anion Gap 12 BUN 15 Creatinine 0.9 Est GFR ( Amer) > 60 Est GFR (Non-Af Amer) > 60 POC Glucose (mg/dL) 268 H Random Glucose 267 H Calcium 8.3 L Phosphorus 3.8 Magnesium 1.4 L Total Bilirubin 0.4 AST 29 ALT 38 Alkaline Phosphatase 57 Troponin I 0.03 D Total Protein 6.7 Albumin 3.8 Globulin 3.0 Albumin/Globulin Ratio 1.3 Procalcitonin Venous Blood Potassium 3.7 Influenza Typ A,B (EIA) 10/04/18 10/04/18 10/05/18 19:00 19:30 06:09 WBC 6.3 RBC 3.76 Hgb 9.9 L Hct 31.5 L MCV 83.8 MCH 26.3 MCHC 31.4 RDW 14.6 H Plt Count 254 MPV 9.4 Gran % 83.8 H Lymph % (Auto) 11.4 L [place]os % (Auto) 4.3 Eos % (Auto) 0.2 L Baso % (Auto) 0.3 Gran # 5.24 Lymph # (Auto) 0.7 L [place] # (Auto) 0.3 Eos # (Auto) 0.0 Baso # (Auto) 0.02 pCO2 53 H pO2 121.0 H HCO3 25.5 ABG pH 7.29 L ABG Total CO2 27.1 ABG O2 Saturation 97.1 ABG O2 Content 14.2 L ABG Base Excess -1.5 ABG Hemoglobin 10.3 L ABG Carboxyhemoglobin 0.1 L POC ABG HHb (Measured) 2.9 ABG Methemoglobin 0.2 ABG O2 Capacity 14.6 L VBG pH VBG pCO2 VBG HCO3 VBG Total CO2 VBG O2 Sat (Calc) VBG Base Excess VBG Potassium Hgb O2 Saturation 96.7 Sodium Chloride Glucose Lactate FiO2 100.0 Potassium Carbon Dioxide Anion Gap BUN Creatinine Est GFR ( Amer) Est GFR (Non-Af Amer) POC Glucose (mg/dL) Random Glucose Calcium Phosphorus Magnesium Total Bilirubin AST ALT Alkaline Phosphatase Troponin I Total Protein Albumin Globulin Albumin/Globulin Ratio Procalcitonin Venous Blood Potassium Influenza Typ A,B (EIA) Pos for influenza a H 10/05/18 10/05/18 10/05/18 08:00 08:00 08:00 WBC 7.4 RBC 4.01 Hgb 10.5 L Hct 33.6 L MCV 83.8 MCH 26.2 MCHC 31.3 RDW 14.3 Plt Count 233 MPV 9.0 Gran % 89.9 H Lymph % (Auto) 8.8 L [place] % (Auto) 1.2 Eos % (Auto) 0.0 L Baso % (Auto) 0.1 Gran # 6.67 H Lymph # (Auto) 0.7 L [place] # (Auto) 0.1 Eos # (Auto) 0.0 Baso # (Auto) 0.01 pCO2 pO2 HCO3 ABG pH ABG Total CO2 ABG O2 Saturation ABG O2 Content ABG Base Excess ABG Hemoglobin ABG Carboxyhemoglobin POC ABG HHb (Measured) ABG Methemoglobin ABG O2 Capacity VBG pH VBG pCO2 VBG HCO3 VBG Total CO2 VBG O2 Sat (Calc) VBG Base Excess VBG Potassium Hgb O2 Saturation Sodium 138 Chloride 100 Glucose Lactate FiO2 Potassium 3.6 Carbon Dioxide 28 Anion Gap 14 BUN 18 Creatinine 1.1 Est GFR ( Amer) 59 Est GFR (Non-Af Amer) 49 POC Glucose (mg/dL) Random Glucose 306 H* Calcium 8.0 L Phosphorus Magnesium Total Bilirubin 0.6 AST 46 H D ALT 40 Alkaline Phosphatase 63 Troponin I Total Protein 7.1 Albumin 4.0 Globulin 3.1 Albumin/Globulin Ratio 1.3 Procalcitonin 0.96 H Venous Blood Potassium Influenza Typ A,B (EIA) Assessment & Plan - Assessment and Plan (Free Text) Plan: Infectious diseases Attending Physician Attestation Patient seen and examined, discussed with biomedical engineer. I have reviewed the patient's history of present illness, past medical, social, personal and family histories, pertinent physical exam findings, course so far in this hospital admission, pertinent laboratory and imaging results. I agree with the above findings, assessment and plan. In addition, we have started Tamiflu for sepsis due Influenza A infection. Cannot rule out aspiration pneumonia and we have started Zosyn. Follow up sputum cx, blood cx, PCT, urine Legionella Ag, MRSA nasal screen.
--- NOTE | 2018-10-05 11:23 | CP.PCM.PN ---
<AbimbolarozinagloriaDennis - Last Filed: 10/05/18 16:25> Subjective - Date & Time of Evaluation Date of Evaluation: 10/05/18 Time of Evaluation: 08:45 - Subjective Subjective: PGY6 GI Fellow Progress Note Patient seen and examined bedside this morning. The patient states that coughing is significant to the point where she has some difficulty eating. However, she tolerated oral liquids without difficulty this morning. No nausea, vomiting. 12 system ROS performed and negative except where stated Objective - Vital Signs/Intake and Output Vital Signs (last 24 hours): Temp Pulse Resp BP Pulse Ox 98.6 F 120 H 18 165/85 H 98 10/05/18 00:01 10/05/18 10:25 10/05/18 00:01 10/05/18 10:27 10/05/18 00:01 Intake and Output: 10/05/18 10/05/18 06:59 18:59 Intake Total 420 Output Total 2 Balance 418 - Medications Medications: Current Medications Acetaminophen (Tylenol 325mg Tab) 650 mg PO Q6H PRN PRN Reason: Temperature Last Admin: 10/05/18 10:23 Dose: 650 mg Albuterol/Ipratropium (Duoneb 3 Mg/0.5 Mg (3 Ml) Ud) 3 ml INH [id number] [facility] Amitriptyline HCl (Elavil) 75 mg PO [facility] Last Admin: 10/04/18 21:22 Dose: 75 mg Amlodipine Besylate (Norvasc) 10 mg PO DAILY [facility] Last Admin: 10/05/18 10:27 Dose: 10 mg Apixaban (Eliquis) 2.5 mg PO BID [facility]; Protocol Last Admin: 10/05/18 10:32 Dose: 2.5 mg Arformoterol Tartrate (Brovana) 15 mcg IH [id number] [facility] Last Admin: 10/05/18 07:38 Dose: 15 mcg Aspirin (Ecotrin) 81 mg PO DAILY [facility] Last Admin: 10/05/18 10:28 Dose: 81 mg Atorvastatin Calcium (Lipitor) 10 mg PO HS [facility] Last Admin: 10/04/18 21:22 Dose: 10 mg Budesonide (Pulmicort Respules) 0.5 mg INH [id number] [facility] Last Admin: 10/05/18 07:38 Dose: 0.5 mg Carvedilol (Coreg) 25 mg PO BID [facility] Last Admin: 10/05/18 10:24 Dose: 25 mg Diltiazem HCl (Cardizem) 60 mg PO TID [facility] Last Admin: 10/05/18 10:22 Dose: 60 mg Gabapentin (Neurontin) 300 mg PO BID [facility]; Protocol Last Admin: 10/05/18 10:32 Dose: 300 mg Glipizide (Glucotrol) 10 mg PO BID [facility] Last Admin: 10/05/18 10:24 Dose: 10 mg Piperacillin Sod/Tazobactam Sod (Zosyn 3.375 In Ns 100ml) 100 mls @ 25 mls/hr IVPB Q8 [facility]; Protocol Stop: 10/13/18 14:01 Last Admin: 10/05/18 04:59 Dose: 25 mls/hr Sodium Chloride (Sodium Chloride 0.9%) 1,000 mls @ 100 mls/hr IV .Q10H [facility]ONNY Last Admin: 10/05/18 04:59 Dose: 100 mls/hr Insulin Human Regular (Humulin R Med) 0 units SC ACHS [facility]; Protocol Levalbuterol HCl (Xopenex) 0.63 mg IH [id number] PRN PRN Reason: Shortness of Breath Last Admin: 10/05/18 05:47 Dose: 0.63 mg Lisinopril (Zestril) 10 mg PO DAILY [facility] Last Admin: 10/05/18 10:25 Dose: 10 mg Home Med - Vitamin A [Vitamin A] 8,000 Unit 8,000 unit PO DAILY [facility] Oseltamivir Phosphate (Tamiflu Cap) 30 mg PO BID [facility]; Protocol Stop: 10/09/18 10:01 Last Admin: 10/05/18 10:25 Dose: 30 mg Pantoprazole Sodium (Protonix Inj) 40 mg IVP DAILY [facility] Last Admin: 10/05/18 10:25 Dose: 40 mg Tolterodine Tartrate (Detrol) 2 mg PO BID [facility] Last Admin: 10/05/18 10:22 Dose: 2 mg - Labs Labs: 10/05/18 08:00 10/05/18 08:00 PT 19.2 SECONDS (9.4-12.5) H 10/03/18 19:40 INR 1.67 10/03/18 19:40 APTT 37.9 Seconds (25.1-36.5) H 10/03/18 19:40 - Constitutional Appears: Non-toxic, No Acute Distress - Eye Exam Eye Exam: EOMI, PERRL - ENT Exam ENT Exam: Mucous Membranes Moist - Respiratory Exam Respiratory Exam: Rales (R>L). absent: Clear to Ausculation Bilateral, Rhonchi, Wheezes - Cardiovascular Exam Cardiovascular Exam: RRR, +S1, +S2 - GI/Abdominal Exam GI & Abdominal Exam: Soft, Normal Bowel Sounds. absent: Distended, Firm, Guarding, Rigid, Tenderness, Organomegaly - Extremities Exam Extremities Exam: Normal Inspection. absent: Pedal Edema - Neurological Exam Neurological Exam: Alert, Awake, Oriented x3 - Psychiatric Exam Psychiatric exam: Normal Affect, Normal Mood - Skin Skin Exam: Dry, Warm Assessment and Plan - Assessment and Plan (Free Text) Assessment: Patient is a 73yo female with PMHx significant for atrial fibrillation on apixaban, HTN, hyperlipidemia, DM, GERD with cough and dysphagia. -Acute influenza -Pneumonia -Dysphagia -GERD -Atrial fibrillation on anticoagulation Plan: -Ongoing therapy for influenza and pneumonia - Tamiflu and Zosyn -Further evaluation of esophagus pending improvement in respiratory illness -Given findings on imaging, would recommend barium esophagram to further evaluate -Ultimately, if suspicion for achalasia, would recommend outpatient evaluation with manometry -SCHEDULING ADMINISTRATOR eval - full liquids, nectar thick -Continue PPI therapy -No further recommendations presently until acute issues resolve <Caleb Altamirano - Last Filed: 10/05/18 16:31> Objective - Vital Signs/Intake and Output Vital Signs (last 24 hours): Temp Pulse Resp BP Pulse Ox 98.6 F 75 18 165/85 H 98 10/05/18 00:01 10/05/18 15:13 10/05/18 00:01 10/05/18 10:27 10/05/18 00:01 Intake and Output: 10/05/18 10/05/18 06:59 18:59 Intake Total 420 Output Total 2 Balance 418 - Medications Medications: Current Medications Acetaminophen (Tylenol 325mg Tab) 650 mg PO Q6H PRN PRN Reason: Temperature Last Admin: 10/05/18 10:23 Dose: 650 mg Albuterol/Ipratropium (Duoneb 3 Mg/0.5 Mg (3 Ml) Ud) 3 ml INH [id number] [facility] Amitriptyline HCl (Elavil) 75 mg PO HS [facility] Last Admin: 10/04/18 21:22 Dose: 75 mg Amlodipine Besylate (Norvasc) 10 mg PO DAILY [facility] Last Admin: 10/05/18 10:27 Dose: 10 mg Apixaban (Eliquis) 2.5 mg PO BID [facility]; Protocol Last Admin: 10/05/18 10:32 Dose: 2.5 mg Arformoterol Tartrate (Brovana) 15 mcg IH [id number] [facility] Last Admin: 10/05/18 07:38 Dose: 15 mcg Aspirin (Ecotrin) 81 mg PO DAILY [facility] Last Admin: 10/05/18 10:28 Dose: 81 mg Atorvastatin Calcium (Lipitor) 10 mg PO HS [facility] Last Admin: 10/04/18 21:22 Dose: 10 mg Budesonide (Pulmicort Respules) 0.5 mg INH [id number] [facility] Last Admin: 10/05/18 07:38 Dose: 0.5 mg Carvedilol (Coreg) 25 mg PO BID [facility] Last Admin: 10/05/18 10:24 Dose: 25 mg Diltiazem HCl (Cardizem) 60 mg PO TID [facility] Last Admin: 10/05/18 15:13 Dose: 60 mg Gabapentin (Neurontin) 300 mg PO BID [facility]; Protocol Last Admin: 10/05/18 10:32 Dose: 300 mg Glipizide (Glucotrol) 10 mg PO BID [facility] Last Admin: 10/05/18 10:24 Dose: 10 mg Piperacillin Sod/Tazobactam Sod (Zosyn 3.375 In Ns 100ml) 100 mls @ 25 mls/hr IVPB Q8 [facility]; Protocol Stop: 10/13/18 14:01 Last Admin: 10/05/18 15:05 Dose: 25 mls/hr Insulin Human Regular (Humulin R Med) 0 units SC ACHS [facility]; Protocol Last Admin: 10/05/18 12:19 Dose: 10 units Levalbuterol HCl (Xopenex) 0.63 mg IH [id number] PRN PRN Reason: Shortness of Breath Last Admin: 10/05/18 05:47 Dose: 0.63 mg Lisinopril (Zestril) 10 mg PO DAILY [facility] Last Admin: 10/05/18 10:25 Dose: 10 mg Home Med - Vitamin A [Vitamin A] 8,000 Unit 8,000 unit PO DAILY [facility] Last Admin: 10/05/18 12:21 Dose: Not Given Oseltamivir Phosphate (Tamiflu Cap) 30 mg PO BID [facility]; Protocol Stop: 10/09/18 10:01 Last Admin: 10/05/18 10:25 Dose: 30 mg Pantoprazole Sodium (Protonix Inj) 40 mg IVP DAILY [facility] Last Admin: 10/05/18 10:25 Dose: 40 mg Tolterodine Tartrate (Detrol) 2 mg PO BID [facility] Last Admin: 10/05/18 10:22 Dose: 2 mg - Labs Labs: 10/05/18 08:00 10/05/18 08:00 PT 19.2 SECONDS (9.4-12.5) H 10/03/18 19:40 INR 1.67 10/03/18 19:40 APTT 37.9 Seconds (25.1-36.5) H 10/03/18 19:40 Attending/Attestation - Attestation I have personally seen and examined this patient.: Yes I have fully participated in the care of the patient.: Yes I have reviewed all pertinent clinical information, including history, physical exam and plan: Yes Notes (Text): 10/05/18 16:26 I have seen and examined patient with GI fellow. Events from yesterday noted, she continues to report ongoing cough. She was able to tolerate liquid diet without difficulty, no vomiting, nausea, or abdominal pain. Atrial fibrillation on eliquis HTN / DM GERD Pneumonia / influenza Dysphagia - Continue with liquid diet, advance slowly as tolerated - Continue with antibiotic therapy as per ID - Continue with PPI therapy - Patient would benefit from elective outpatient follow up with barium esophagram +/- manometry testing after resolution of acute pulmonary issues. Also patient would need to come off [facility] prior to consideration of procedure. - No current planned GI intervention, will sign off case. Please reconsult as necessary, thank you.
--- NOTE | 2018-10-05 11:37 | CON ---
DATE: 10/05/2018 CARDIOLOGY CONSULTATION HISTORY: The patient is a 73-year-old woman with a history of diabetes mellitus, hypertension and hypercholesterolemia, who presents with fever. Her associated symptoms are consistent with viral infection and possible flu. She has chronic atrial fibrillation, for which she was treated at home with anticoagulation as well as beta-blockers for heart rate control. Currently, the patient is in bed without acute respiratory distress. REVIEW OF SYSTEMS: Unavailable. PHYSICAL EXAMINATION: VITAL SIGNS: Blood pressure is 165/85, heart rate is 110, atrial fibrillation. The temperature is 100.6. NECK: Negative JVD. LUNGS: Bilateral rhonchi. HEART: Revealed S1 and S2. EXTREMITIES: Without edema. EKG showed atrial fibrillation with left bundle-branch block. Glucose is 267. BUN and creatinine, unremarkable. Troponins are negative x2. Hemoglobin is 9.9. IMPRESSION: 1. Viral infection can be possible flu. 2. Chronic atrial fibrillation. 3. Increased ventricular heart rate secondary to fever. 4. Diabetes mellitus. 5. Hypertension. 6. Hypercholesterolemia. PLAN: Given these findings, we will continue her Eliquis. We will add Cardizem p.o. to her regimen for better heart rate control. Mihir Dunaway MD
[2018-10-05] MEDS: Insulin Reg-MEDIUM-Coverage SC SCH ×3 (12:19→22:34)
[2018-10-05] MEDS: VITAMIN A 8000 UNIT PO SCH (12:21)
[2018-10-05] MEDS ORDERED: Magnesium Sulfate 2 gm/50 ml 2 GM/50 ML BAG IVPB ONE (13:28)
[2018-10-05] MEDS: Albuterol-Ipratrop 3 mg / 0.5 (3 ml) UD INH SCH ×2 (13:30→19:31)
--- NOTE | 2018-10-05 21:24 | CON ---
DATE: 10/05/[address] Agrawal. HISTORY OF PRESENT ILLNESS: This 73-year-old female with history of AFib, hypertension, GERD, complaining of difficulty swallowing and signs and symptoms of flu. She states over the last several days, she has noticed some difficulty swallowing solids, sensation of certain items getting stuck around her sternal notch. She states that she can tolerate liquids without problems, but seems to have told other providers that she may have issues with liquids. She has been fairly anxious and restless. She reports some mild intermittent epigastric discomfort. She is now complaining of severe symptoms related to possible flu. PAST MEDICAL HISTORY: Denied. PAST SURGICAL HISTORY: Denied. FAMILY HISTORY: History of colon problems in brother. ALLERGIES: NO KNOWN DRUG ALLERGIES. SOCIAL HISTORY: Never smoked. REVIEW OF SYSTEMS: CARDIAC DISORDER: Yes; AFib. PULMONARY: Respiratory disorder; no. Chest x-ray was positive for possible pneumonia/bronchitis markings. NEUROLOGIC: Cerebrovascular accident; yes. HEENT: Dysphagia and history of cataracts. RENAL: No chronic kidney disease. ENDOCRINE: Diabetes type 2. The patient is on insulin. HEMATOLOGIC AND ONCOLOGIC: She is anemic. MEDICATIONS: The patient is on medication regimen is , albuterol, amitriptyline, , Eliquis, formoterol tartrate, aspirin, atorvastatin, budesonide, carvedilol or Coreg, Lovenox, Neurontin, glipizide, and Zosyn. PHYSICAL EXAMINATION: GENERAL: This is a very comfortable female seems to have a significant improvement after 24-48 hours of IV therapy. HEENT: Atraumatic. Eyes are normal. Mucous membranes are noted to be dry. A direct flexible laryngoscopy was done at bedside. Nose and mucosal membranes are noted to be dry. Positive gag reflux. Good epiglottic movement. Bilateral vocal cord motion. No masses noted. Dry mucosal membranes. Normal laryngeal anatomy without masses. VITAL SIGNS: 98.4 temperature, 114 pulse, respiratory rate 21, blood pressure 146/68, and pulse ox 95. LABORATORY DATA: The patient shows signs and symptoms of chronic anemia, 10.5 and 33 on H and H with white count of 11.2. IMPRESSION AND PLAN: This 73-year-old female with significant gastroesophageal reflux disease, as noted difficulty swallowing with acute aspects of flu. The patient is being treated by speech therapy and swallow therapy and at the time of exam was tolerating liquids and semisolids. Laryngeal exam; it was stated to advance diet, post-barium swallow, which is pending at this point. The patient is scheduled with gastrointestinal for possible further endoscopy. The patient will continue on proton pump inhibitors at this particular point and the diet will be advanced, pending barium swallow. Norbert Chen DO
[2018-10-06] MEDS: Albuterol-Ipratrop 3 mg / 0.5 (3 ml) UD INH SCH ×4 (01:16→19:55)
[2018-10-06] MEDS: Piperacillin/Tazobact 3.375 gm 100 ML IVPB SCH (05:35)
[2018-10-06] MEDS: Arformoterol 15 mcg/2 ml Inh Sol IH SCH ×2 (07:44→19:55)
[2018-10-06] MEDS: Budesonide 0.5 mg/2 ml Inhal Susp UD INH SCH ×2 (07:45→19:56)
--- NOTE | 2018-10-06 08:42 | CP.PCM.PN ---
<Zeke Matias - Last Filed: 10/06/18 15:11> Subjective - Date & Time of Evaluation Date of Evaluation: 10/06/18 Time of Evaluation: 08:42 - Subjective Subjective: Zeke Matias DO PGY1 - Internal Medicine [employer] Worker - Medicine Progress Note Pt. was seen and examined at bedside this morning, Patient has intermittent episodes of confusion ON during which she will remove her bipap No fevers reported. SOB improving, no chest pain, no abd pain, n/v/d/c, tolerating diet well. Objective - Vital Signs/Intake and Output Vital Signs (last 24 hours): Temp Pulse Resp BP Pulse Ox 98.2 F 87 20 126/66 97 10/06/18 06:00 10/06/18 06:00 10/06/18 06:00 10/06/18 06:00 10/06/18 06:00 Intake and Output: 10/06/18 10/06/18 06:59 18:59 Intake Total 900 Balance 900 - Medications Medications: Current Medications Acetaminophen (Tylenol 325mg Tab) 650 mg PO Q6H PRN PRN Reason: Temperature Last Admin: 10/05/18 10:23 Dose: 650 mg Albuterol/Ipratropium (Duoneb 3 Mg/0.5 Mg (3 Ml) Ud) 3 ml INH [id number] [facility] Last Admin: 10/06/18 07:45 Dose: 3 ml Amitriptyline HCl (Elavil) 75 mg PO HS [facility] Last Admin: 10/05/18 09:27 Dose: 75 mg Amlodipine Besylate (Norvasc) 10 mg PO DAILY [facility] Last Admin: 10/05/18 10:27 Dose: 10 mg Apixaban (Eliquis) 2.5 mg PO BID [facility]; Protocol Last Admin: 10/05/18 18:11 Dose: 2.5 mg Arformoterol Tartrate (Brovana) 15 mcg IH [id number] [facility] Last Admin: 10/06/18 07:44 Dose: 15 mcg Aspirin (Ecotrin) 81 mg PO DAILY [facility] Last Admin: 10/05/18 10:28 Dose: 81 mg Atorvastatin Calcium (Lipitor) 10 mg PO HS [facility] Last Admin: 10/05/18 21:27 Dose: 10 mg Budesonide (Pulmicort Respules) 0.5 mg INH [id number] [facility] Last Admin: 10/06/18 07:45 Dose: 0.5 mg Carvedilol (Coreg) 25 mg PO BID [facility] Last Admin: 10/05/18 17:59 Dose: 25 mg Diltiazem HCl (Cardizem) 60 mg PO TID [facility] Last Admin: 10/05/18 18:11 Dose: 60 mg Gabapentin (Neurontin) 300 mg PO BID [facility]; Protocol Last Admin: 10/05/18 18:11 Dose: 300 mg Glipizide (Glucotrol) 10 mg PO BID [facility] Last Admin: 10/05/18 18:11 Dose: 10 mg Piperacillin Sod/Tazobactam Sod (Zosyn 3.375 In Ns 100ml) 100 mls @ 25 mls/hr IVPB Q8 [facility]; Protocol Stop: 10/13/18 14:01 Last Admin: 10/06/18 05:35 Dose: 25 mls/hr Insulin Human Lispro (Humalog) 5 units SC BID [facility] Insulin Human Regular (Humulin R Med) 0 units SC ACHS [facility]; Protocol Last Admin: 10/05/18 22:34 Dose: 3 units Levalbuterol HCl (Xopenex) 0.63 mg IH [id number] PRN PRN Reason: Shortness of Breath Last Admin: 10/05/18 05:47 Dose: 0.63 mg Lisinopril (Zestril) 10 mg PO DAILY [facility] Last Admin: 10/05/18 10:25 Dose: 10 mg Home Med - Vitamin A [Vitamin A] 8,000 Unit 8,000 unit PO DAILY [facility] Last Admin: 10/05/18 12:21 Dose: Not Given Oseltamivir Phosphate (Tamiflu Cap) 30 mg PO BID [facility]; Protocol Stop: 10/09/18 10:01 Last Admin: 10/05/18 18:11 Dose: 30 mg Pantoprazole Sodium (Protonix Inj) 40 mg IVP DAILY [facility] Last Admin: 10/05/18 10:25 Dose: 40 mg Tolterodine Tartrate (Detrol) 2 mg PO BID [facility] Last Admin: 10/05/18 18:11 Dose: 2 mg - Labs Labs: 10/05/18 08:00 10/05/18 08:00 PT 19.2 SECONDS (9.4-12.5) H 10/03/18 19:40 INR 1.67 10/03/18 19:40 APTT 37.9 Seconds (25.1-36.5) H 10/03/18 19:40 - Constitutional Appears: Well, Non-toxic, No Acute Distress - Head Exam Head Exam: ATRAUMATIC, NORMOCEPHALIC - Eye Exam Eye Exam: EOMI, Normal appearance, PERRL - ENT Exam ENT Exam: Mucous Membranes Moist, Normal Exam - Respiratory Exam Additional comments: Diffuse crackling bilaterally; Mild expiratory wheezes - Cardiovascular Exam Cardiovascular Exam: RRR, +S1, +S2. absent: Murmur - GI/Abdominal Exam GI & Abdominal Exam: Soft, Normal Bowel Sounds. absent: Tenderness - Extremities Exam Extremities Exam: Normal Capillary Refill, Normal Inspection Additional comments: 2+ Distal Pulses Bilaterally - Neurological Exam Neurological Exam: Alert, Awake, CN II-XII Intact Additional comments: Oriented to person/ Place only - AAO2 - Psychiatric Exam Psychiatric exam: Normal Affect, Normal Mood. absent: Depressed - Skin Skin Exam: Dry, Intact, Normal Color, Warm Assessment and Plan - Assessment and Plan (Free Text) Assessment: 73F w/ PMH HTN, DM, HLD, Afib (AC w/ Eliquis), HTN presented to [facility] on 10/03 w/ complaints of dysphagia 5 days prior to admission. CTAP in the ED was suggestive of achalasia; and GI was consulted. 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 Plan: Pneumonia w/ Resp Failure: - CAP vs Flu vs Aspiration Currently on O2 Previous Echo 03/2018 - showed normal EF w/ 56%; Mild TR; Mild Pulm HTN FLU +; ProCal elevated Start augmentin PO Q12 C/w Tamiflu DC Zosyn Tamiflu Hx Afib: HR was uncontrolled w/ Digoxin 0.25 IVP, Cardizem 10 IVP yesterday DC Cardizem 60mg PO TID in setting of bradycardia ; will Decrease Cardizem to 30mg PO TID due to bradycardia Patient resumed on home eliquis Cardiology Following, appreciate reccs Dysphagia: - CT neck w/o contrast (10/03): No mass, no oropharyngeal nasopharyngeal obstruction. Air filled proximal visualized esphagus, possible achalasia - CT A/P w/contrast (10/03): Thick walled fluid filled duodenum and loops of jejunum as well as ileum compatible with enteritis - Swallow Eval - Patient to be continued on full liquids/ nectar thick diet. - Started on nectar thick full liquid diet ; Full aspiration precautions; maintain HOB 45deg; - As per 10/05 CERTIFICATION ENGINEER Eval - No food or thin liquid recommended at this time and crush meds as needed. - Patient is unable to get modified barium swallow as she at risk of aspiration due to her coughing at this time; - Can consider re-testing once pneumonia resolves - C/w Protonix - GI signed off; will reconsult as needed - ENT following appreciate reccs Hx DM w/ Neuropathy ISS-Med ACHS C/w Home Glipizide C/w Home Gabapentin Hx HLD C/w Home Lipitor 10 HS Hx HTN Holding Home Coreg 25 BID C/w Home Norvasc 10 QD C/w Lisinopril 10 QD Hypomag - resolved; Patient is now hyperMag; -Recheck in AM Dispo: Spoke w/ daughter Chayito 10/05, reported that pt. lives alone however has a visiting home health aid. Is able to manage ADLs w/ help of aid prior to admission. Patient was seen, examined, and discussed w/ attending physician Raisa Schneider DO PGY1 Internal Medicine [employer] Worker Hospital Progress Note <Raisa Matias R - Last Filed: 10/07/18 14:05> Objective - Vital Signs/Intake and Output Vital Signs (last 24 hours): Temp Pulse Resp BP Pulse Ox 98.8 F 87 20 136/74 95 10/07/18 12:00 10/07/18 12:00 10/07/18 12:00 10/07/18 12:00 10/07/18 06:00 Intake and Output: 10/07/18 10/07/18 06:59 18:59 Intake Total 540 Output Total 1 Balance 539 - Medications Medications: Current Medications Acetaminophen (Tylenol 325mg Tab) 650 mg PO Q6H PRN PRN Reason: Temperature Last Admin: 10/05/18 10:23 Dose: 650 mg Albuterol/Ipratropium (Duoneb 3 Mg/0.5 Mg (3 Ml) Ud) 3 ml INH [id number] [facility] Last Admin: 10/07/18 13:04 Dose: 3 ml Amitriptyline HCl (Elavil) 75 mg PO HS [facility] Last Admin: 10/06/18 21:30 Dose: 75 mg Amlodipine Besylate (Norvasc) 10 mg PO DAILY [facility] Last Admin: 10/07/18 09:58 Dose: 10 mg Amoxicillin/Clavulanate Potassium (Augmentin 500 Mg-125 Mg Tab) 1 tab PO Q12 [facility]; Protocol Last Admin: 10/07/18 09:47 Dose: 1 tab Apixaban (Eliquis) 2.5 mg PO BID [facility]; Protocol Last Admin: 10/07/18 09:51 Dose: 2.5 mg Arformoterol Tartrate (Brovana) 15 mcg IH [id number] [facility] Last Admin: 10/07/18 07:41 Dose: 15 mcg Aspirin (Ecotrin) 81 mg PO DAILY [facility] Last Admin: 10/07/18 09:48 Dose: 81 mg Atorvastatin Calcium (Lipitor) 10 mg PO [facility] Last Admin: 10/06/18 21:30 Dose: 10 mg Budesonide (Pulmicort Respules) 0.5 mg INH [id number] [facility] Last Admin: 10/07/18 07:41 Dose: 0.5 mg Diltiazem HCl (Cardizem Cd) 120 mg PO DAILY [facility] Last Admin: 10/07/18 10:02 Dose: 120 mg Gabapentin (Neurontin) 300 mg PO BID [facility]; Protocol Last Admin: 10/07/18 09:49 Dose: 300 mg Glipizide (Glucotrol) 10 mg PO BID [facility] Last Admin: 10/07/18 09:50 Dose: 10 mg Insulin Human Lispro (Humalog) 5 units SC BID [facility] Last Admin: 10/07/18 09:43 Dose: 5 unit Insulin Human Regular (Humulin R Med) 0 units SC ACHS [facility]; Protocol Last Admin: 10/07/18 09:53 Dose: Not Given Levalbuterol HCl (Xopenex) 0.63 mg IH [id number] PRN PRN Reason: Shortness of Breath Last Admin: 10/05/18 05:47 Dose: 0.63 mg Lisinopril (Zestril) 10 mg PO DAILY [facility] Last Admin: 10/07/18 09:48 Dose: 10 mg Home Med - Vitamin A [Vitamin A] 8,000 Unit 8,000 unit PO DAILY [facility] Last Admin: 10/06/18 09:20 Dose: 8,000 unit Oseltamivir Phosphate (Tamiflu Cap) 30 mg PO BID [facility]; Protocol Stop: 10/09/18 10:01 Last Admin: 10/07/18 09:49 Dose: 30 mg Pantoprazole Sodium (Protonix Ec Tab) 40 mg PO 0600 [facility] Last Admin: 10/07/18 05:43 Dose: 40 mg Tolterodine Tartrate (Detrol) 2 mg PO BID [facility] Last Admin: 10/07/18 09:47 Dose: 2 mg - Labs Labs: 10/07/18 06:00 10/07/18 06:00 PT 19.2 SECONDS (9.4-12.5) H 10/03/18 19:40 INR 1.67 10/03/18 19:40 APTT 37.9 Seconds (25.1-36.5) H 10/03/18 19:40 Attending/Attestation - Attestation I have personally seen and examined this patient.: Yes I have fully participated in the care of the patient.: Yes I have reviewed all pertinent clinical information, including history, physical exam and plan: Yes Notes (Text): Patient seen and examined by me with resident at 10:15AM on 10/06/18. Case including HPI, physical exam, and assessment and plan discussed with resident. Agree with above with following additions/corrections. Patient is a 73-year-old female past medical history significant for hypertension, type 2 diabetes, hyperlipidemia, and atrial fibrillation on Eliquis that presented to the emergency room with 5 days of difficulty swallow ing that has been progressively getting worse. Patient states that she is feeling a little better today. Complains of a cough. States it is productive. Patient denies chest pain or shortness of breath. No headaches or dizziness. No fevers or chills. No nausea, vomiting, or abdominal pain. No dysuria. No diarrhea or constipation. Physical exam: General: Awake and alert sitting up in bed in no acute distress HEENT: Normocephalic, atraumatic. Extraocular muscles intact, pupils equal and reactive, no scleral icterus. Oropharynx is pink and moist. No pharyngeal erythema or exudate appreciated. Neck is supple. Cardiovascular: Irregularly irregular rhythm.No murmurs, rubs, or gallops appreciated Pulmonary: Normal respiratory effort. Decreased breath sounds. Crackles at bases. No rales or wheezing appreciated. Gastrointestinal: Soft, nondistended. Nontender. Positive bowel sounds all 4 quadrants. No guarding. Musculoskeletal: Moves all extremities. No calf tenderness. No edema appreciate d. Central nervous system: AAOx 2, not oriented to time. Dermatologic: Skin warm and dry. Assessment and plan: Patient is a 73-year-old female past medical history significant for hypertension, type 2 diabetes, hyperlipidemia, and atrial fibrillation on Eliquis that presented to the emergency room with 5 days of difficulty swallowing that has been progressively getting worse. 1. Infuenza A positive. Likely Community acquired pneumonia. Hypoxemia. ID following, recommendations appreciated. Continue Zosyn and Tamiflu. Blood cultures with no growth. Chest x-ray 10/05/2018 per radiologist showed variable pattern a diffusely increased reticular changes and right-sided pulmonary opacity are identified suspicious for potential atypical pneumonitis or possible pulmonary vascular congestion. Continue O2 vial nasal cannula as needed. Continue nebulizer treatments. 2. ?encephalopathy. ?hospital acquired delirium. Patient confused over night. Will continue to monitor for now. Continue supportive care. 3. Afib with RVR. Cardiology following, recommendations appreciated. Patient now bradycardic. Coreg held. Cardizem decreased to 30mg PO TID. Continue Eliquis. 4. Dysphagia. CT neck per radiologist showed no acute findings related to/accounting for clinical presentation. CT abd/pelvis per radiologist showed no acute findings relating to/accounting for clinical presentation; dilated common bile duct of uncertain etiology or significance; pelvic mass either originating with the uterus or left adnexa. GI following, recommendations appreciated. Patient will need further work up and Barium swallow as outpatient per GI. Speech and swallow following. Continue dysphagia diet with thickened liquids. Continue aspiration precautions. Continue Protonix. 5. Pelvic mass seen on CT abdomen. Urinary incontinence. Patient will need outpatient follow-up with gynecology or urology for further testing and treatment. Patient with urinary incontinence and unable to get pelvic ultrasound as bladder needs to be full. Continue home Detrol. 6. Hypertension. Continue Norvasc, lisinopril, and Cardizem. 7. Type 2 diabetes with neuropathy. Continue insulin sliding scale. Continue Glipizide. Continue lispro 5 units subcutaneous twice a day. Continue gabapentin. Continue to monitor Accu-Cheks. 8. Hypercholesterolemia. Continue Lipitor. 9. Neuropathy. Continue gabapentin and Elavil. 10. GI/DVT prophylaxis. Protonix/Eliquis 11. Patient is a full code. Case was discussed in detail with the patient regarding current diagnosis and treatment plan. All questions answered.
[2018-10-06 08:53] LABS: GRAN # 9.56 (1.4-6.5); HEMOGLOBIN 9.8 g/dL (12.0-16.0); LYMPH # 0.8 (1.2-3.4); LYMPH % 7.6 % (22.0-35.0); MEAN CELL VOLUME 83.1 fl (80.0-105.0); MEAN CORPUSCULAR HEMOGLOBIN 26.3 pg (25.0-35.0); MEAN CORPUSCULAR HGB CONC 31.6 g/dl (31.0-37.0); MEAN PLATELET VOLUME 9.1 fl (7.0-11.0); MONO # 0.4 (0.1-0.6); MONO % 3.4 % (1.0-6.0); RBC 3.73 10^6/uL (3.5-6.1); RED CELL DISTRIBUTION WIDTH 14.2 % (11.5-14.5); WHITE BLOOD COUNT 10.8 10^3/uL (4.5-11.0)
[2018-10-06] MEDS: VITAMIN A 8000 UNIT PO SCH (09:20)
[2018-10-06] MEDS: Insulin Lispro 1 UNITS/0.01 ML SC SCH ×2 (09:22→17:13)
[2018-10-06 09:25] LABS: ALB/GLOB RATIO 1.2 (1.1-1.8); ALBUMIN 3.5 g/dL (3.0-4.8); ALT/SGPT 41 U/L (7-56); AST/SGOT 51 U/L (14-36); BLOOD UREA NITROGEN 24 mg/dL (7-21); CALCIUM 8.2 mg/dL (8.4-10.5); GFR NON-AFRICAN AMERICAN 54
[2018-10-06] MEDS: Insulin Reg-MEDIUM-Coverage SC SCH ×4 (12:33→21:45)
--- NOTE | 2018-10-06 13:51 | PN ---
DATE: 10/06/2018 CARDIOLOGY FOLLOWUP HISTORY OF PRESENT ILLNESS: The patient with period of bradycardia . The patient still complains of cough. PHYSICAL EXAMINATION: VITAL SIGNS: Currently, the heart rate is in the 60's, atrial fibrillation and blood pressure is stable. NECK: Negative JVD. LUNGS: Bilateral rhonchi. HEART: Reveals S1 and S2. EXTREMITIES: Without change. LABORATORY DATA: Hemoglobin is 9.8. Chemistry; BUN and creatinine is 24 and 1.0 with the glucose of 297. IMPRESSION: 1. Upper respiratory infection with probable flu. 2. Chronic atrial fibrillation. 3. Decreased heart rate. 4. Diabetes mellitus. 5. Hypertension. 6. Hypercholesterolemia. Given these findings, we will decrease her Cardizem to 30 three times a day. Mihir Dunaway MD
--- NOTE | 2018-10-06 14:02 | CP.PCM.PN ---
<Jerome Mcdonald - Last Filed: 10/06/18 13:58> Subjective - Date & Time of Evaluation Date of Evaluation: 10/06/18 Time of Evaluation: 09:00 - Subjective Subjective: Patient seed and examined at bedside. Patient notes improvement in her symptoms. Patient with no acute events overnight. Denies chest pain, shortness of breath, nausea, vomiting, diarrhea, fever, chills. Objective - Vital Signs/Intake and Output Vital Signs (last 24 hours): Temp Pulse Resp BP Pulse Ox 98.2 F 81 20 122/65 97 10/06/18 06:00 10/06/18 09:18 10/06/18 06:00 10/06/18 09:20 10/06/18 06:00 Intake and Output: 10/06/18 10/06/18 06:59 18:59 Intake Total 900 Balance 900 - Medications Medications: Current Medications Acetaminophen (Tylenol 325mg Tab) 650 mg PO Q6H PRN PRN Reason: Temperature Last Admin: 10/05/18 10:23 Dose: 650 mg Albuterol/Ipratropium (Duoneb 3 Mg/0.5 Mg (3 Ml) Ud) 3 ml INH [id number] [facility]S [facility] Last Admin: 10/06/18 07:45 Dose: 3 ml Amitriptyline HCl (Elavil) 75 mg PO HS [facility] Last Admin: 10/05/18 09:27 Dose: 75 mg Amlodipine Besylate (Norvasc) 10 mg PO DAILY [facility] Last Admin: 10/06/18 09:20 Dose: 10 mg Amoxicillin/Clavulanate Potassium (Augmentin 500 Mg-125 Mg Tab) 1 tab PO Q12 [facility]S [facility]; Protocol Apixaban (Eliquis) 2.5 mg PO BID [facility]; Protocol Last Admin: 10/06/18 09:18 Dose: 2.5 mg Arformoterol Tartrate (Brovana) 15 mcg IH [id number] [facility] 234 [facility]S [facility] Last Admin: 10/06/18 07:44 Dose: 15 mcg Aspirin (Ecotrin) 81 mg PO DAILY [facility] Last Admin: 10/06/18 09:19 Dose: 81 mg Atorvastatin Calcium (Lipitor) 10 mg PO HS [facility] Last Admin: 10/05/18 21:27 Dose: 10 mg Budesonide (Pulmicort Respules) 0.5 mg INH [id number] [facility] 234 [facility]S [facility] Last Admin: 10/06/18 07:45 Dose: 0.5 mg Diltiazem HCl (Cardizem) 30 mg PO TID [facility] Gabapentin (Neurontin) 300 mg PO BID [facility]; Protocol Last Admin: 10/06/18 09:17 Dose: 300 mg Glipizide (Glucotrol) 10 mg PO BID [facility] Last Admin: 10/06/18 09:19 Dose: 10 mg Insulin Human Lispro (Humalog) 5 units SC BID [facility] Last Admin: 10/06/18 09:22 Dose: 5 unit Insulin Human Regular (Humulin R Med) 0 units SC ACHS [facility] 234 [facility]S [facility]; Protocol Last Admin: 10/06/18 12:34 Dose: 8 units Levalbuterol HCl (Xopenex) 0.63 mg IH [id number] PRN PRN Reason: Shortness of Breath Last Admin: 10/05/18 05:47 Dose: 0.63 mg Lisinopril (Zestril) 10 mg PO DAILY [facility] Last Admin: 10/06/18 09:18 Dose: 10 mg Home Med - Vitamin A [Vitamin A] 8,000 Unit 8,000 unit PO DAILY [facility] Last Admin: 10/06/18 09:20 Dose: 8,000 unit Oseltamivir Phosphate (Tamiflu Cap) 30 mg PO BID [facility]; Protocol Stop: 10/09/18 10:01 Last Admin: 10/06/18 09:19 Dose: 30 mg Pantoprazole Sodium (Protonix Inj) 40 mg IVP DAILY [facility] Last Admin: 10/06/18 09:16 Dose: 40 mg Tolterodine Tartrate (Detrol) 2 mg PO BID [facility] 234 [facility] Last Admin: 10/06/18 09:17 Dose: 2 mg - Labs Labs: 10/06/18 08:30 10/06/18 08:30 PT 19.2 SECONDS (9.4-12.5) H 10/03/18 19:40 INR 1.67 10/03/18 19:40 APTT 37.9 Seconds (25.1-36.5) H 10/03/18 19:40 - Constitutional Appears: Non-toxic, No Acute Distress - Head Exam Head Exam: ATRAUMATIC, NORMAL INSPECTION, NORMOCEPHALIC - ENT Exam ENT Exam: Mucous Membranes Moist, Normal Exam - Respiratory Exam Respiratory Exam: Decreased Breath Sounds, NORMAL BREATHING PATTERN. absent: Rales, Rhonchi, Wheezes - Cardiovascular Exam Cardiovascular Exam: RRR, +S1, +S2 - GI/Abdominal Exam GI & Abdominal Exam: Soft, Normal Bowel Sounds. absent: Tenderness - Extremities Exam Extremities Exam: Normal Inspection. absent: Pedal Edema - Neurological Exam Neurological Exam: Alert, Awake, CN II-XII Intact, Oriented x3 - Psychiatric Exam Psychiatric exam: Normal Affect, Normal Mood - Skin Skin Exam: Dry, Intact, Warm Assessment and Plan - Assessment and Plan (Free Text) Plan: Influenza A Community acquired pneumonia Hx of HTN Hx of A-fib with RVR Hx of HLD Plan Continue on Tamiflu Change Zosyn to Augmentin for 3 more days Urine culture shows Enterococcus faecalis Procal elevated Blood cultures negative x 24 hours Will continue to monitor Bhagwandin, PGY-3 <Rafael Guadarrama - Last Filed: 10/06/18 15:14> Objective - Vital Signs/Intake and Output Vital Signs (last 24 hours): Temp Pulse Resp BP Pulse Ox 98.0 F 70 18 121/92 H 97 10/06/18 12:00 10/06/18 12:00 10/06/18 12:00 10/06/18 12:00 10/06/18 06:00 Intake and Output: 10/06/18 10/06/18 06:59 18:59 Intake Total 900 Balance 900 - Medications Medications: Current Medications Acetaminophen (Tylenol 325mg Tab) 650 mg PO Q6H PRN PRN Reason: Temperature Last Admin: 10/05/18 10:23 Dose: 650 mg Albuterol/Ipratropium (Duoneb 3 Mg/0.5 Mg (3 Ml) Ud) 3 ml INH [id number] [facility] Last Admin: 10/06/18 13:58 Dose: 3 ml Amitriptyline HCl (Elavil) 75 mg PO HS [facility] Last Admin: 10/05/18 09:27 Dose: 75 mg Amlodipine Besylate (Norvasc) 10 mg PO DAILY [facility] Last Admin: 10/06/18 09:20 Dose: 10 mg Amoxicillin/Clavulanate Potassium (Augmentin 500 Mg-125 Mg Tab) 1 tab PO Q12 [facility]; Protocol Apixaban (Eliquis) 2.5 mg PO BID [facility]; Protocol Last Admin: 10/06/18 09:18 Dose: 2.5 mg Arformoterol Tartrate (Brovana) 15 mcg IH [id number] COUNTS INCLUDE 234 BEDS AT [facility] Last Admin: 10/06/18 07:44 Dose: 15 mcg Aspirin (Ecotrin) 81 mg PO DAILY [facility] 234 BEDS [facility] Last Admin: 10/06/18 09:19 Dose: 81 mg Atorvastatin Calcium (Lipitor) 10 mg PO HS [facility] 234 B[facility]S [facility] Last Admin: 10/05/18 21:27 Dose: 10 mg Budesonide (Pulmicort Respules) 0.5 mg INH [id number] [facility]S [facility]CLUDE 234 BEDS AT [facility] Last Admin: 10/06/18 07:45 Dose: 0.5 mg Diltiazem HCl (Cardizem) 30 mg PO TID [facility] 234 BEDS AT [facility] Gabapentin (Neurontin) 300 mg PO BID [facility] 234 B[facility]S [facility]; Protocol Last Admin: 10/06/18 09:17 Dose: 300 mg Glipizide (Glucotrol) 10 mg PO BID [facility] 234 B[facility]S [facility] Last Admin: 10/06/18 09:19 Dose: 10 mg Insulin Human Lispro (Humalog) 5 units SC BID [facility] 234 [facility]S [facility] Last Admin: 10/06/18 09:22 Dose: 5 unit Insulin Human Regular (Humulin R Med) 0 units SC ACHS [facility]CLUDE 234 BEDS AT [facility]; Protocol Last Admin: 10/06/18 12:34 Dose: 8 units Levalbuterol HCl (Xopenex) 0.63 mg IH [id number] PRN PRN Reason: Shortness of Breath Last Admin: 10/05/18 05:47 Dose: 0.63 mg Lisinopril (Zestril) 10 mg PO DAILY [facility]CLUDE 234 BEDS AT [facility] Last Admin: 10/06/18 09:18 Dose: 10 mg Home Med - Vitamin A [Vitamin A] 8,000 Unit 8,000 unit PO DAILY [facility]CLUDE 234 BEDS AT [facility] Last Admin: 10/06/18 09:20 Dose: 8,000 unit Oseltamivir Phosphate (Tamiflu Cap) 75 mg PO BID [facility]CLUDE 234 BEDS AT [facility]; Protocol Stop: 10/09/18 10:01 Pantoprazole Sodium (Protonix Inj) 40 mg IVP DAILY [facility]CLUDE 234 BEDS AT [facility] Last Admin: 10/06/18 09:16 Dose: 40 mg Tolterodine Tartrate (Detrol) 2 mg PO BID [facility]CLUDE 234 BEDS AT [facility] Last Admin: 10/06/18 09:17 Dose: 2 mg - Labs Labs: 10/06/18 08:30 10/06/18 08:30 PT 19.2 SECONDS (9.4-12.5) H 12/24/18 19:40 INR 1.67 10/03/18 19:40 APTT 37.9 Seconds (25.1-36.5) H 10/03/18 19:40 Assessment and Plan - Assessment and Plan (Free Text) Plan: Infectious diseases Attending Physician Attestation Patient seen and examined, discussed with emergency medical technician. I have reviewed the patient's history of present illness, past medical, social, personal and family histories, pertinent physical exam findings, course so far in this hospital admission, pertinent laboratory and imaging results. I agree with the above findings, assessment and plan. In addition, complete the 5 day course of Tamiflu for Influenza. Will switch Zosyn to Augmentin for E. faecalis UTI and possible CAP. Will continue to monitor clinically.
[2018-10-06] MEDS: Amoxicillin-Clav 500-125 mg Tab PO SCH (21:30)
[2018-10-07] MEDS: Albuterol-Ipratrop 3 mg / 0.5 (3 ml) UD INH SCH ×3 (02:54→13:04)
[2018-10-07] MEDS ORDERED: Pantoprazole 40 mg EC Tab PO SCH (06:00)
[2018-10-07 06:29] LABS: EOS % 0.1 % (1.5-5.0); GRAN # 6.09 (1.4-6.5); GRAN % 74.9 % (50.0-68.0); HEMOGLOBIN 9.8 g/dL (12.0-16.0); LYMPH # 1.7 (1.2-3.4); LYMPH % 21.2 % (22.0-35.0); MEAN CELL VOLUME 84.3 fl (80.0-105.0); MEAN CORPUSCULAR HEMOGLOBIN 26.6 pg (25.0-35.0); MEAN CORPUSCULAR HGB CONC 31.5 g/dl (31.0-37.0); MEAN PLATELET VOLUME 9.6 fl (7.0-11.0); MONO # 0.3 (0.1-0.6); MONO % 3.8 % (1.0-6.0); RBC 3.69 10^6/uL (3.5-6.1); RED CELL DISTRIBUTION WIDTH 14.2 % (11.5-14.5); WHITE BLOOD COUNT 8.1 10^3/uL (4.5-11.0)
[2018-10-07 06:37] VITALS: O2SAT 95
[2018-10-07 07:14] LABS: ALB/GLOB RATIO 1.2 (1.1-1.8); ALBUMIN 3.3 g/dL (3.0-4.8); ALT/SGPT 37 U/L (7-56); AST/SGOT 53 U/L (14-36); BLOOD UREA NITROGEN 24 mg/dL (7-21); CALCIUM 8.6 mg/dL (8.4-10.5); GFR NON-AFRICAN AMERICAN > 60
[2018-10-07] MEDS ORDERED: Potassium Chloride 20 mEq ER Tab PO ONE (07:34)
[2018-10-07] MEDS: Arformoterol 15 mcg/2 ml Inh Sol IH SCH (07:41)
[2018-10-07] MEDS: Budesonide 0.5 mg/2 ml Inhal Susp UD INH SCH (07:41)
[2018-10-07] MEDS: Insulin Lispro 1 UNITS/0.01 ML SC SCH ×2 (09:43→17:37)
[2018-10-07] MEDS: Amoxicillin-Clav 500-125 mg Tab PO SCH (09:47)
[2018-10-07] MEDS: Insulin Reg-MEDIUM-Coverage SC SCH ×3 (09:53→17:52)
[2018-10-07] MEDS ORDERED: diltiaZEM 120 mg/24 Hours CD Cap PO SCH (10:00)
--- NOTE | 2018-10-07 12:19 | PN ---
DATE: 10/07/2018 SUBJECTIVE: The patient's coughing is improved, but still coughing. PHYSICAL EXAMINATION: GENERAL: The patient is afebrile. VITAL SIGNS: Blood pressure 120/72, the heart rate is in the 60s to 80s, atrial fibrillation. NECK: Negative JVD. LUNGS: Rhonchi noted. HEART: S1, S2. EXTREMITIES: Without edema. LABORATORY DATA: Hemoglobin is 9.8. Chemistries; BUN and creatinine unremarkable. IMPRESSION: 1. Upper respiratory infection. 2. Chronic atrial fibrillation with a heart rate that is better controlled. 3. Diabetes mellitus. 4. Hypertension. 5. Hypercholesterolemia. PLAN: Given these findings, we will change her Cardizem to long-acting Cardizem 120 daily. We will DC telemetry today. Mihir Dunaway MD
--- NOTE | 2018-10-07 13:44 | CP.PCM.PN ---
<Jerome Mcdonald - Last Filed: 10/07/18 13:42> Subjective - Date & Time of Evaluation Date of Evaluation: 10/07/18 Time of Evaluation: 07:15 - Subjective Subjective: Patient admits to improvement in breathing and coughing. No acute events overnight. Denies chest pain, shortness of breath, fever, chills, nausea, vomiting. Objective - Vital Signs/Intake and Output Vital Signs (last 24 hours): Temp Pulse Resp BP Pulse Ox 98.8 F 87 20 136/74 95 10/07/18 12:00 10/07/18 12:00 10/07/18 12:00 10/07/18 12:00 10/07/18 06:00 Intake and Output: 10/07/18 10/07/18 06:59 18:59 Intake Total 540 Output Total 1 Balance 539 - Medications Medications: Current Medications Acetaminophen (Tylenol 325mg Tab) 650 mg PO Q6H PRN PRN Reason: Temperature Last Admin: 10/05/18 10:23 Dose: 650 mg Albuterol/Ipratropium (Duoneb 3 Mg/0.5 Mg (3 Ml) Ud) 3 ml INH [id number] [facility] Last Admin: 10/07/18 13:04 Dose: 3 ml Amitriptyline HCl (Elavil) 75 mg PO [facility] Last Admin: 10/06/18 21:30 Dose: 75 mg Amlodipine Besylate (Norvasc) 10 mg PO DAILY [facility] Last Admin: 10/07/18 09:58 Dose: 10 mg Amoxicillin/Clavulanate Potassium (Augmentin 500 Mg-125 Mg Tab) 1 tab PO Q12 [facility]; Protocol Last Admin: 10/07/18 09:47 Dose: 1 tab Apixaban (Eliquis) 2.5 mg PO BID [facility]; Protocol Last Admin: 10/07/18 09:51 Dose: 2.5 mg Arformoterol Tartrate (Brovana) 15 mcg IH [id number] [facility] Last Admin: 10/07/18 07:41 Dose: 15 mcg Aspirin (Ecotrin) 81 mg PO DAILY [facility] Last Admin: 10/07/18 09:48 Dose: 81 mg Atorvastatin Calcium (Lipitor) 10 mg PO HS [facility] Last Admin: 10/06/18 21:30 Dose: 10 mg Budesonide (Pulmicort Respules) 0.5 mg INH [id number] [facility] Last Admin: 10/07/18 07:41 Dose: 0.5 mg Diltiazem HCl (Cardizem Cd) 120 mg PO DAILY [facility] Last Admin: 10/07/18 10:02 Dose: 120 mg Gabapentin (Neurontin) 300 mg PO BID [facility]; Protocol Last Admin: 10/07/18 09:49 Dose: 300 mg Glipizide (Glucotrol) 10 mg PO BID [facility] Last Admin: 10/07/18 09:50 Dose: 10 mg Insulin Human Lispro (Humalog) 5 units SC BID [facility] Last Admin: 10/07/18 09:43 Dose: 5 unit Insulin Human Regular (Humulin R Med) 0 units SC [facility]; Protocol Last Admin: 10/07/18 09:53 Dose: Not Given Levalbuterol HCl (Xopenex) 0.63 mg IH [id number] PRN PRN Reason: Shortness of Breath Last Admin: 10/05/18 05:47 Dose: 0.63 mg Lisinopril (Zestril) 10 mg PO DAILY [facility] Last Admin: 10/07/18 09:48 Dose: 10 mg Home Med - Vitamin A [Vitamin A] 8,000 Unit 8,000 unit PO DAILY [facility] Last Admin: 10/06/18 09:20 Dose: 8,000 unit Oseltamivir Phosphate (Tamiflu Cap) 30 mg PO BID [facility]; Protocol Stop: 10/09/18 10:01 Last Admin: 10/07/18 09:49 Dose: 30 mg Pantoprazole Sodium (Protonix Ec Tab) 40 mg PO 0600 [facility] Last Admin: 10/07/18 05:43 Dose: 40 mg Tolterodine Tartrate (Detrol) 2 mg PO BID [facility] Last Admin: 10/07/18 09:47 Dose: 2 mg - Labs Labs: 10/07/18 06:00 10/07/18 06:00 PT 19.2 SECONDS (9.4-12.5) H 10/03/18 19:40 INR 1.67 10/03/18 19:40 APTT 37.9 Seconds (25.1-36.5) H 10/03/18 19:40 - Constitutional Appears: Non-toxic, No Acute Distress - Head Exam Head Exam: ATRAUMATIC, NORMAL INSPECTION, NORMOCEPHALIC - ENT Exam ENT Exam: Mucous Membranes Moist - Respiratory Exam Respiratory Exam: Decreased Breath Sounds, NORMAL BREATHING PATTERN. absent: Rales, Rhonchi, Wheezes - Cardiovascular Exam Cardiovascular Exam: RRR, +S1, +S2 - GI/Abdominal Exam GI & Abdominal Exam: Soft, Normal Bowel Sounds. absent: Tenderness - Extremities Exam Extremities Exam: Normal Inspection. absent: Pedal Edema - Neurological Exam Neurological Exam: Alert, Awake, CN II-XII Intact, Oriented x3 - Psychiatric Exam Psychiatric exam: Normal Affect, Normal Mood - Skin Skin Exam: Dry, Intact, Warm Assessment and Plan - Assessment and Plan (Free Text) Plan: Influenza A Community acquired pneumonia Hx of HTN Hx of A-fib with RVR Hx of HLD Plan Continue on Tamiflu and Augmentin for 3 more days Urine culture shows Enterococcus faecalis Procal elevated Blood cultures negative Harry, PGY-3 <Rafael Guadarrama - Last Filed: 10/07/18 14:43> Objective - Vital Signs/Intake and Output Vital Signs (last 24 hours): Temp Pulse Resp BP Pulse Ox 98.8 F 87 20 136/74 95 10/07/18 12:00 10/07/18 12:00 10/07/18 12:00 10/07/18 12:00 10/07/18 06:00 Intake and Output: 10/07/18 10/07/18 06:59 18:59 Intake Total 540 Output Total 1 Balance 539 - Medications Medications: Current Medications Acetaminophen (Tylenol 325mg Tab) 650 mg PO Q6H PRN PRN Reason: Temperature Last Admin: 10/05/18 10:23 Dose: 650 mg Albuterol/Ipratropium (Duoneb 3 Mg/0.5 Mg (3 Ml) Ud) 3 ml INH [id number] [facility] Last Admin: 10/07/18 13:04 Dose: 3 ml Amitriptyline HCl (Elavil) 75 mg PO HS [facility] Last Admin: 10/06/18 21:30 Dose: 75 mg Amlodipine Besylate (Norvasc) 10 mg PO DAILY [facility] Last Admin: 10/07/18 09:58 Dose: 10 mg Amoxicillin/Clavulanate Potassium (Augmentin 500 Mg-125 Mg Tab) 1 tab PO Q12 [facility]; Protocol Last Admin: 10/07/18 09:47 Dose: 1 tab Apixaban (Eliquis) 2.5 mg PO BID [facility]; Protocol Last Admin: 10/07/18 09:51 Dose: 2.5 mg Arformoterol Tartrate (Brovana) 15 mcg IH [id number] [facility] Last Admin: 10/07/18 07:41 Dose: 15 mcg Aspirin (Ecotrin) 81 mg PO DAILY [facility] Last Admin: 10/07/18 09:48 Dose: 81 mg Atorvastatin Calcium (Lipitor) 10 mg PO HS [facility] Last Admin: 10/06/18 21:30 Dose: 10 mg Budesonide (Pulmicort Respules) 0.5 mg INH [id number] [facility] Last Admin: 10/07/18 07:41 Dose: 0.5 mg Diltiazem HCl (Cardizem Cd) 120 mg PO DAILY [facility] Last Admin: 10/07/18 10:02 Dose: 120 mg Gabapentin (Neurontin) 300 mg PO BID [facility]; Protocol Last Admin: 10/07/18 09:49 Dose: 300 mg Glipizide (Glucotrol) 10 mg PO BID [facility] Last Admin: 10/07/18 09:50 Dose: 10 mg Insulin Human Lispro (Humalog) 5 units SC BID [facility] Last Admin: 10/07/18 09:43 Dose: 5 unit Insulin Human Regular (Humulin R Med) 0 units SC [facility]; Protocol Last Admin: 10/07/18 09:53 Dose: Not Given Levalbuterol HCl (Xopenex) 0.63 mg IH [id number] PRN PRN Reason: Shortness of Breath Last Admin: 10/05/18 05:47 Dose: 0.63 mg Lisinopril (Zestril) 10 mg PO DAILY [facility] Last Admin: 10/07/18 09:48 Dose: 10 mg Home Med - Vitamin A [Vitamin A] 8,000 Unit 8,000 unit PO DAILY [facility] Last Admin: 10/06/18 09:20 Dose: 8,000 unit Oseltamivir Phosphate (Tamiflu Cap) 30 mg PO BID [facility]; Protocol Stop: 10/09/18 10:01 Last Admin: 10/07/18 09:49 Dose: 30 mg Pantoprazole Sodium (Protonix Ec Tab) 40 mg PO 0600 [facility] Last Admin: 10/07/18 05:43 Dose: 40 mg Tolterodine Tartrate (Detrol) 2 mg PO BID [facility] Last Admin: 10/07/18 09:47 Dose: 2 mg - Labs Labs: 10/07/18 06:00 10/07/18 06:00 PT 19.2 SECONDS (9.4-12.5) H 10/03/18 19:40 INR 1.67 10/03/18 19:40 APTT 37.9 Seconds (25.1-36.5) H 10/03/18 19:40 Assessment and Plan - Assessment and Plan (Free Text) Plan: Infectious diseases Attending Physician Attestation Patient seen and examined, discussed with medical radiation therapist. I have reviewed the patient's history of present illness, past medical, social, personal and family histories, pertinent physical exam findings, course so far in this hospital admission, pertinent laboratory and imaging results. I agree with the above findings, assessment and plan. In addition, complete 3 more days of Tamiflu and Augmentin for Influenza infection and possible CAP.
[2018-10-07] MEDS ORDERED: Saliva Substitute 44.3 ML PO PRN (14:54)
--- NOTE | 2018-10-07 15:09 | CP.PCM.PN ---
Objective - Vital Signs/Intake and Output Vital Signs (last 24 hours): Temp Pulse Resp BP Pulse Ox 98.8 F 87 20 136/74 95 10/07/18 12:00 10/07/18 12:00 10/07/18 12:00 10/07/18 12:00 10/07/18 06:00 Intake and Output: 10/07/18 10/07/18 06:59 18:59 Intake Total 540 Output Total 1 Balance 539 - Medications Medications: Current Medications Acetaminophen (Tylenol 325mg Tab) 650 mg PO Q6H PRN PRN Reason: Temperature Last Admin: 10/05/18 10:23 Dose: 650 mg Albuterol/Ipratropium (Duoneb 3 Mg/0.5 Mg (3 Ml) Ud) 3 ml INH [id number] [facility] Last Admin: 10/07/18 13:04 Dose: 3 ml Amitriptyline HCl (Elavil) 75 mg PO [facility] Last Admin: 10/06/18 21:30 Dose: 75 mg Amlodipine Besylate (Norvasc) 10 mg PO DAILY [facility] Last Admin: 10/07/18 09:58 Dose: 10 mg Amoxicillin/Clavulanate Potassium (Augmentin 500 Mg-125 Mg Tab) 1 tab PO Q12 [facility]; Protocol Last Admin: 10/07/18 09:47 Dose: 1 tab Apixaban (Eliquis) 2.5 mg PO BID [facility]; Protocol Last Admin: 10/07/18 09:51 Dose: 2.5 mg Arformoterol Tartrate (Brovana) 15 mcg IH [id number] [facility] Last Admin: 10/07/18 07:41 Dose: 15 mcg Aspirin (Ecotrin) 81 mg PO DAILY [facility] Last Admin: 10/07/18 09:48 Dose: 81 mg Atorvastatin Calcium (Lipitor) 10 mg PO HS [facility] Last Admin: 10/06/18 21:30 Dose: 10 mg Budesonide (Pulmicort Respules) 0.5 mg INH [id number] [facility] Last Admin: 10/07/18 07:41 Dose: 0.5 mg Diltiazem HCl (Cardizem Cd) 120 mg PO DAILY [facility] Last Admin: 10/07/18 10:02 Dose: 120 mg Gabapentin (Neurontin) 300 mg PO BID [facility]; Protocol Last Admin: 10/07/18 09:49 Dose: 300 mg Glipizide (Glucotrol) 10 mg PO BID [facility] Last Admin: 10/07/18 09:50 Dose: 10 mg Insulin Human Lispro (Humalog) 5 units SC BID [facility] Last Admin: 10/07/18 09:43 Dose: 5 unit Insulin Human Regular (Humulin R Med) 0 units SC [facility]; Protocol Last Admin: 10/07/18 09:53 Dose: Not Given Levalbuterol HCl (Xopenex) 0.63 mg IH [id number] PRN PRN Reason: Shortness of Breath Last Admin: 10/05/18 05:47 Dose: 0.63 mg Lisinopril (Zestril) 10 mg PO DAILY [facility] Last Admin: 10/07/18 09:48 Dose: 10 mg Home Med - Vitamin A [Vitamin A] 8,000 Unit 8,000 unit PO DAILY [facility] Last Admin: 10/06/18 09:20 Dose: 8,000 unit Oseltamivir Phosphate (Tamiflu Cap) 30 mg PO BID [facility]; Protocol Stop: 10/09/18 10:01 Last Admin: 10/07/18 09:49 Dose: 30 mg Pantoprazole Sodium (Protonix Ec Tab) 40 mg PO 0600 [facility] Last Admin: 10/07/18 05:43 Dose: 40 mg Tolterodine Tartrate (Detrol) 2 mg PO BID [facility] Last Admin: 10/07/18 09:47 Dose: 2 mg - Labs Labs: 10/07/18 06:00 10/07/18 06:00 PT 19.2 SECONDS (9.4-12.5) H 10/03/18 19:40 INR 1.67 10/03/18 19:40 APTT 37.9 Seconds (25.1-36.5) H 10/03/18 19:40 Assessment and Plan - Assessment and Plan (Free Text) Assessment: 73F w/ PMH HTN, DM, HLD, Afib (AC w/ Eliquis), HTN [place] [facility] [place] w/ complaints of dysphagia 5 days prior to admission. CTAP in the ED was suggestive of achalasia; and GI was consulted. 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 Plan: Pneumonia w/ Resp Failure: - CAP vs Flu vs Aspiration Currently on O2 Previous Echo 03/2018 - showed normal EF w/ 56%; Mild TR; Mild Pulm HTN FLU +; ProCal elevated Start augmentin PO Q12 C/w Tamiflu DC Zosyn Tamiflu Hx Afib: HR was uncontrolled w/ Digoxin 0.25 IVP, Cardizem 10 IVP yesterday DC Cardizem 60mg PO TID in setting of bradycardia ; will Decrease Cardizem to 30mg PO TID due to bradycardia Patient resumed on home eliquis Cardiology Following, appreciate reccs Dysphagia: - CT neck w/o contrast (10/03): No mass, no oropharyngeal nasopharyngeal obstruction. Air filled proximal visualized esphagus, possible achalasia - CT A/P w/contrast (10/03): Thick walled fluid filled duodenum and loops of jejunum as well as ileum compatible with enteritis - Diet is to be advanced to puree w/ think liquid - Started on nectar thick full liquid diet ; Full aspiration precautions; maintain HOB 45deg; - As per 10/05 [employer] CONSULTANT Eval - No food or thin liquid recommended at this time and crush meds as needed. - Patient is unable to get modified barium swallow as she at risk of aspiration due to her coughing at this time; - Can consider re-testing once pneumonia resolves - C/w Protonix - GI signed off; will reconsult as needed - ENT following appreciate reccs Hx DM w/ Neuropathy ISS-Med ACHS C/w Home Glipizide C/w Home Gabapentin Hx HLD C/w Home Lipitor 10 HS Hx HTN Holding Home Coreg 25 BID C/w Home Norvasc 10 QD C/w Lisinopril 10 QD Pelvic Mass Hypomag - resolved; Patient is now hyperMag; -Recheck in AM Dispo: Spoke w/ daughter Chayito 10/05, reported that pt. lives alone however has a visiting home health aid. Is able to manage ADLs w/ help of aid prior to admission. Patient was seen, examined, and discussed w/ attending physician Raisa Schneider DO PGY1 Internal Medicine [facility] Progress Note
--- NOTE | 2018-10-07 15:13 | RAD ---
Date of service: 10/07/2018 HISTORY: JUAN RAMON, r.o vasc congestion COMPARISON: 10/05/2018 FINDINGS: LUNGS: No active pulmonary disease. PLEURA: No significant pleural effusion identified, no pneumothorax apparent. CARDIOVASCULAR: No aortic atherosclerotic calcification present. Mild cardiomegaly no pulmonary vascular congestion. OSSEOUS STRUCTURES: No significant abnormalities. VISUALIZED UPPER ABDOMEN: Normal. OTHER FINDINGS: None. IMPRESSION: No active disease.
--- NOTE | 2018-10-07 16:58 | CP.PCM.DIS ---
<Zeke Matias - Last Filed: 10/07/18 22:07> Provider - Provider Date of Admission: 10/03/18 21:48 Attending physician: Raisa Matias DO Primary care physician: Bing Oates Consults: 10/04/18 00:45 Dysphagia Evaluation (CURRICULUM WRITER) ONCE Comment: Physician Instructions: Reason For Exam: Stroke Evaluation Social Work Referral Routine Comment: NATAN SCORE 9 Physician Instructions: Reason For Exam: NATAN SCORE 9 10/04/18 09:03 Cardiology Consult Routine Comment: Consulting Provider: Mihir Dunaway Consulting Physician: Mihir Dunaway Reason for Consult: Cardiac Risk Stratification/ Afib RVR 10/04/18 09:10 Infectious Disease Consult Routine Comment: Consulting Provider: Dustin Cutler Consulting Physician: Dustin Cutlre Reason for Consult: Pneumonia 10/04/18 12:08 ENT [Otolaryngology Consult] Routine Consulting Provider: Gadiel Lugo Consulting Physician: Gadiel Lugo Reason for Consult: Dysphagia / Achalasia Time Spent in preparation of Discharge (in minutes): 45 Diagnosis - Discharge Diagnosis (1) Influenza A Status: Acute (2) Dysphagia Status: Acute (3) Pneumonitis Status: Acute (4) Atrial fibrillation Status: Acute Hospital Course - Lab Results Lab Results: Micro Results 10/03/18 20:55 Blood-Venous Blood Culture - Preliminary NO GROWTH AFTER 3 DAYS 10/03/18 20:00 Blood-Venous Blood Culture - Preliminary NO GROWTH AFTER 3 DAYS 10/04/18 19:10 Blood Blood Culture - Preliminary NO GROWTH AFTER 48 HOURS 10/04/18 18:50 Blood Blood Culture - Preliminary NO GROWTH AFTER 48 HOURS 10/03/18 21:48 Urine,Catheterized Urine Culture - Final Enterococcus Faecalis Most Recent Lab Values WBC 8.1 10^3/uL (4.5-11.0) D 10/07/18 06:00 RBC 3.69 10^6/uL (3.5-6.1) 10/07/18 06:00 Hgb 9.8 g/dL (12.0-16.0) L 10/07/18 06:00 Hct 31.1 % (36.0-48.0) L 10/07/18 06:00 MCV 84.3 fl (80.0-105.0) 10/07/18 06:00 MCH 26.6 pg (25.0-35.0) 10/07/18 06:00 MCHC 31.5 g/dl (31.0-37.0) 10/07/18 06:00 RDW 14.2 % (11.5-14.5) 10/07/18 06:00 Plt Count 249 10^3/uL (120.0-450.0) 10/07/18 06:00 MPV 9.6 fl (7.0-11.0) 10/07/18 06:00 Gran % 74.9 % (50.0-68.0) H 10/07/18 06:00 Lymph % (Auto) 21.2 % (22.0-35.0) L 10/07/18 06:00 [place] % (Auto) 3.8 % (1.0-6.0) 10/07/18 06:00 Eos % (Auto) 0.1 % (1.5-5.0) L 10/07/18 06:00 Baso % (Auto) 0.0 % (0.0-3.0) 10/07/18 06:00 Gran # 6.09 (1.4-6.5) 10/07/18 06:00 Lymph # (Auto) 1.7 (1.2-3.4) 10/07/18 06:00 [place] # (Auto) 0.3 (0.1-0.6) 10/07/18 06:00 Eos # (Auto) 0.0 (0.0-0.7) 10/07/18 06:00 Baso # (Auto) 0.00 K/mm3 (0.0-2.0) 10/07/18 06:00 Retic Count 1.24 % (0.5-1.5) 10/04/18 08:00 PT 19.2 SECONDS (9.4-12.5) H 10/03/18 19:40 INR 1.67 10/03/18 19:40 APTT 37.9 Seconds (25.1-36.5) H 10/03/18 19:40 pCO2 53 mm/Hg (35-45) H 10/05/18 06:09 pO2 121.0 mm/Hg (80-100) H 10/05/18 06:09 HCO3 25.5 mmol/L (21-28) 10/05/18 06:09 ABG pH 7.29 (7.35-7.45) L 10/05/18 06:09 ABG Total CO2 27.1 mmol.L (22-28) 10/05/18 06:09 ABG O2 Saturation 97.1 % (95-98) 10/05/18 06:09 ABG O2 Content 14.2 ML/dl (15-23) L 10/05/18 06:09 ABG Base Excess -1.5 mmol/L (-2.0-3.0) 10/05/18 06:09 ABG Hemoglobin 10.3 g/dL (11.7-17.4) L 10/05/18 06:09 ABG Carboxyhemoglobin 0.1 % (0.5-1.5) L 10/05/18 06:09 POC ABG HHb (Measured) 2.9 % (0-5) 10/05/18 06:09 ABG Methemoglobin 0.2 % (0.0-3.0) 10/05/18 06:09 ABG O2 Capacity 14.6 mL/dl (16-24) L 10/05/18 06:09 VBG pH 7.42 (7.32-7.43) 10/04/18 19:00 VBG pCO2 44.0 (40-60) 10/04/18 19:00 VBG HCO3 28.5 mmol/l (21-28) H 10/04/18 19:00 VBG Total CO2 29.9 mmol.L (22-28) H 10/04/18 19:00 VBG O2 Sat (Calc) 95.7 % (40-65) H 10/04/18 19:00 VBG Base Excess 3.4 mmol/L (0.0-2.0) H 10/04/18 19:00 VBG Potassium 3.7 mmol/L (3.6-5.2) 10/04/18 19:00 Hgb O2 Saturation 96.7 % (95.0-98.0) 10/05/18 06:09 Sodium 137.0 mmol/L (132-148) 10/04/18 19:00 Chloride 102.0 mmol/L (98-107) 10/04/18 19:00 Glucose 288 mg/dl (65-105) H 10/04/18 19:00 Lactate 1.3 mmol/L (0.7-2.1) 10/04/18 19:00 FiO2 100.0 % 10/05/18 06:09 Sodium 139 mmol/L (132-148) 10/07/18 06:00 Potassium 3.4 mmol/L (3.6-5.0) L 10/07/18 06:00 Chloride 99 mmol/L (98-107) 10/07/18 06:00 Carbon Dioxide 34 mmol/L (21-33) H 10/07/18 06:00 Anion Gap 8 (10-20) L 10/07/18 06:00 BUN 24 mg/dL (7-21) H 10/07/18 06:00 Creatinine 0.9 mg/dl (0.7-1.2) 10/07/18 06:00 Est GFR ( Amer) > 60 10/07/18 06:00 Est GFR (Non-Af Amer) > 60 10/07/18 06:00 POC Glucose (mg/dL) 316 mg/dL (65-110) H 10/07/18 16:30 Random Glucose 126 mg/dL (70-110) H 10/07/18 06:00 Calcium 8.6 mg/dL (8.4-10.5) 10/07/18 06:00 Phosphorus 3.8 mg/dL (2.5-4.5) 10/04/18 19:00 Magnesium 2.6 mg/dL (1.7-2.2) H 10/06/18 08:30 Iron 44 ug/dL (45-180) L 10/04/18 08:00 TIBC 352 ug/dL (265-497) 10/04/18 08:00 % Saturation 12 % (20-55) L 10/04/18 08:00 Total Bilirubin 0.4 mg/dL (0.2-1.3) 10/07/18 06:00 AST 53 U/L (14-36) H 10/07/18 06:00 ALT 37 U/L (7-56) 10/07/18 06:00 Alkaline Phosphatase 47 U/L (38-126) 10/07/18 06:00 Troponin I 0.03 ng/mL D 10/04/18 19:00 NT-Pro-B Natriuret Pep 953 pg/mL (0-450) H 10/03/18 19:40 Total Protein 6.0 g/dL (5.8-8.3) 10/07/18 06:00 Albumin 3.3 g/dL (3.0-4.8) 10/07/18 06:00 Globulin 2.7 gm/dL 10/07/18 06:00 Albumin/Globulin Ratio 1.2 (1.1-1.8) 10/07/18 06:00 Lipase 36 U/L (23-300) 10/03/18 19:40 Procalcitonin 0.96 NG/ML (0.19-0.49) H 10/05/18 08:00 TSH 3rd Generation 0.92 mIU/mL (0.46-4.68) 10/04/18 08:00 Venous Blood Potassium 3.7 mmol/L (3.6-5.2) 10/04/18 19:00 Urine Color Light yellow (YELLOW) 10/03/18 21:48 Urine Appearance Clear (CLEAR) 10/03/18 21:48 Urine pH 6.0 (4.7-8.0) 10/03/18 21:48 Ur Specific [place] 1.010 (1.005-1.035) 10/03/18 21:48 Urine Protein Negative mg/dL (<30 mg/dL) 10/03/18 21:48 Urine Glucose (UA) Negative mg/dL (NEGATIVE) 10/03/18 21:48 Urine Ketones Negative mg/dL (NEGATIVE) 10/03/18 21:48 Urine Blood Trace-intact (NEGATIVE) H 10/03/18 21:48 Urine Nitrate Negative (NEGATIVE) 10/03/18 21:48 Urine Bilirubin Negative (NEGATIVE) 10/03/18 21:48 Urine Urobilinogen 0.2 E.U./dL (<1 E.U./dL) 10/03/18 21:48 Ur Leukocyte Esterase Negative Faina/uL (NEGATIVE) 10/03/18 21:48 Urine RBC 0 - 2 /hpf (0-2) 10/03/18 21:48 Urine WBC 0 - 2 /hpf (0-6) 10/03/18 21:48 Ur Epithelial Cells None /hpf (0-5) 10/03/18 21:48 Influenza Typ A,B (EIA) Pos for influenza a (NEGATIVE) H 10/04/18 19:30 - Hospital Course Hospital Course: Zeke Matias PGY1 Internal Medicine Utilization Review Nurse - Medicine DC Summary Disclaimer: This is a brief summary of the patient's hospitalization; For full record of patient's hospitalization please refer to EMR Active hospital problems during admission: Dysphagia, Pneumonia, Flu Positive, Afib w/ RVR (uncontrolled HR), 73F w/ PMH HTN, DM, HLD, Afib (AC w/ Eliquis), HTN presented to [facility] ED on 10/03 w/ complaints of dysphagia 5 days prior to admission. CTAP in the ED was suggestive of achalasia; and GI was consulted. During evaluation of patient, it was noted she had significant bilateral rales / poor breath sounds on lung exam. CXR was ordered on 10/04 AM which was interpreted as atypical pneumonitis vs CHF/Pulmonary edema. Patient was started on IV ABX and PNA workup ordered; patient subsequently found to be influenza A+ the next day. ID was consulted, and she was subsequently managed for multifocal pneumonia w/ hypoxemia in the setting of the patient being influenza A +. ID recs were given IVABX and Tamiflu, She was subsequently continued on PO abx at discharge as well as tamiflu. Her hospital course was complicated by BLEACHER LARD called for fevers and confusion overnight. In regards to her dysphagia ENT and GI both recommended a barium swallow however she was unable to complete the exam due to her persistent coughing. Patient was subsequently advised to follow up barium swallow as outpt. Upon evaluation by CURRICULUM WRITER at the beginning of hospital course patient was tolerating nectar thick full liquid diet; She was subsequently advanced to puree consistency diet with thin liquids. During admission it was also noted that the patient's HR was uncontrolled; IVP of cardizem and digoxin were used to managed heart rate and subsequently cardiology was consulted to adjust patient's PO cardizem dosing from home. She was initially anticoagulated w/ therapeutic lovenox as she was unable to tolerate PO eliquis. Prior to discharge she was transitioned back to eliquis. She was also noted to have a pelvic mass on CT imaging which she was recommended to follow up outpt. PT evaluated patient who recommended DANNY for patient. Morning prior to discharge, patient was seen and evaluated at bedside She was reporting significant improvement w/ swallowing and cough; denied SOB, CP, Abd Pain, n/v/d/c, urinary discomfort. patient denied feeling disoriented or confused Remainder of 12 system ROS is otherwise negative Prior to discharge, medications were reocnciled, follow up instructions, and discharge instructions were communicated to the patient. Patient is medically optimized for discharge at [facility] Discharge Exam - Head Exam Head Exam: ATRAUMATIC, NORMAL INSPECTION, NORMOCEPHALIC - Eye Exam Eye Exam: EOMI, Normal appearance, PERRL - Respiratory Exam Respiratory Exam: Rales, Wheezes - Cardiovascular Exam Cardiovascular Exam: RRR, +S1, +S2. absent: Systolic Murmur - GI/Abdominal Exam GI & Abdominal Exam: Normal Bowel Sounds, Unremarkable. absent: Tenderness - Neurological Exam Neurological exam: Alert, CN II-XII Intact, Oriented x3 - Psychiatric Exam Psychiatric exam: Normal Affect, Normal Mood - Skin Skin Exam: Dry, Intact, Normal Color, Warm Discharge Plan - Follow Up Plan Condition: STABLE Disposition: REHAB FACILITY/REHAB UNIT Additional Instructions: Please follow up with your primary care doctor, Dr. Bing Cabezas, within 3-5 days of discharge from subacute rehab, so she may monitor your course. You will need REPEAT BLOOD WORK AND CHEST XRAY for resolution of Pneumonia. Please follow up with Dr. Agrawal, c iron worker, for Upper endoscopy and Barium Esophagram as outpatient for your swallowing issues within 1 week of discharge. Please follow up with your quality technician, Dr. Dunaway, within 1 week of discharge from subacute rehab. A 3cm diameter pelvic mass was seen on your CT scan. It is very important that you follow up with a pile header or urologist for pelvic ultrasound within 1 week of discharge from subacute rehab. You will need to continue a PUREE DIET with THIN liquids until you are seen by Dr Agrawal, the c iron worker. Eating solid foods could cause you to have an aspiration pneumonia. Please continue the following home medications - some of your home medications have been adjusted: 1. Amitriptyline (elavil) 75mg 1 tablet at 10PM (with dinner) 2. Amlodipine (norvasc) 10mg 1 tablet at 10AM (with breakfast) 3. Apixaban (eliquis) 5mg 1 tablet at 10AM (with breakfast) and 1 tablet at 10PM (with dinner) 4. Aspirin 81mg 1 tablet at 10AM (with breakfast) 5. Atorvastatin (lipitor) 10mg 1 tablet before bedtime 6. Diltiazem (cardizem) 120mg 1 tablet at 10AM (with breakfast) 7. Gabapentin (neurontin) 300mg 1 tablet at 10AM (with breakfast) and 1 tablet at 10PM (with dinner) 8. Ergocalciferol (vitamin D2) 50,000 units 1 tablet once a week 9. Metformin 1000mg 1 tablet at 10AM (with breakfast) and 1 tablet at 10PM (with dinner) 10. Lisinopril (zestril ) 10mg 1 tablet at 2PM (with lunch) 11. Omeprazole (prilosec) 40mg 1 tablet at 10PM (with dinner) 12. Tolterodine (detrol) 2mg 1 tablet at 10AM (with breakfast) and 1 tablet at 10PM (with dinner) 13. Glipizide (glucotrol) 10mg 1 tablet at 10AM (with breakfast) and 1 tablet at 10PM (with dinner) 14. Multivitamin 1 tablet at 2PM (with lunch) 15. Vitamin A 8000 units 1 tablet at 2PM (with lunch) 16. Insulin Lispro (humalog) 5 units with breakfast and 5 units with dinner - please adjust as advised by your Primary Medical Doctor - also please be discuss long-term insulin with your Primary Medical Doctor Please continue the following which should only be taken for the next few days (as instructed): 1. Oseltamivir (tamiflu) 30mg 1 tablet at 10AM (with breakfast) and 1 tablet at 10PM (with dinner) for 2 more days - your last dose is October 09 2. Amoxicillin/clavulanate (augmentin) 500mg-125mg 1 tablet at 10AM (with breakfast) and 1 tablet at 10PM (with dinner) for 2 more days - your last dose is October 09 3. Albuterol/Ipratropium (duoneb 3mg/0.5mg) every 6 hours only when needed for shortness of breath (discontinue after leaving rehab) 4. Arformoterol (brovana) 15mcg IH every 12 hours (discontinue after leaving rehab) 5. Biotene 30ml every 6 hours only when needed for dry mouth If your symptoms return, please go to the nearest emergency department. Referrals: Bing Cabezas MD [Non-Staff] - Nina Agrawal MD [Medical Doctor] - Mihir Dunaway MD [Staff Provider] - <Raisa Matias - Last Filed: 10/10/18 14:41> Provider - Provider Date of Admission: 10/03/18 21:48 Attending physician: Raisa Matias DO Consults: 10/04/18 00:45 Dysphagia Evaluation (CURRICULUM WRITER) ONCE Comment: Physician Instructions: Reason For Exam: Stroke Evaluation Social Work Referral Routine Comment: NATAN SCORE 9 Physician Instructions: Reason For Exam: NATAN SCORE 9 10/04/18 09:03 Cardiology Consult Routine Comment: Consulting Provider: Mihir Dunaway Consulting Physician: Mihir Dunaway Reason for Consult: Cardiac Risk Stratification/ Afib RVR 10/04/18 09:10 Infectious Disease Consult Routine Comment: Consulting Provider: Dustin Cutler Consulting Physician: Dustin Cutler Reason for Consult: Pneumonia 10/04/18 12:08 ENT [Otolaryngology Consult] Routine Consulting Provider: Gadiel Lugo Consulting Physician: Gadiel Lugo Reason for Consult: Dysphagia / Achalasia Hospital Course - Lab Results Lab Results: Micro Results 10/04/18 19:10 Blood Blood Culture - Final NO GROWTH AFTER 5 DAYS 10/04/18 19:10 Blood Gram Stain - Final TEST NOT PERFORMED 10/04/18 18:50 Blood Blood Culture - Final NO GROWTH AFTER 5 DAYS 10/04/18 18:50 Blood Gram Stain - Final TEST NOT PERFORMED 10/03/18 20:55 Blood-Venous Blood Culture - Final NO GROWTH AFTER 5 DAYS 10/03/18 20:55 Blood-Venous Gram Stain - Final TEST NOT PERFORMED 10/03/18 20:00 Blood-Venous Blood Culture - Final NO GROWTH AFTER 5 DAYS 10/03/18 20:00 Blood-Venous Gram Stain - Final TEST NOT PERFORMED 10/07/18 02:15 Naris MRSA Culture (Admit) - Final MRSA NOT DETECTED 10/03/18 21:48 Urine,Catheterized Urine Culture - Final Enterococcus Faecalis Most Recent Lab Values WBC 8.1 10^3/uL (4.5-11.0) D 10/07/18 06:00 RBC 3.69 10^6/uL (3.5-6.1) 10/07/18 06:00 Hgb 9.8 g/dL (12.0-16.0) L 10/07/18 06:00 Hct 31.1 % (36.0-48.0) L 10/07/18 06:00 MCV 84.3 fl (80.0-105.0) 10/07/18 06:00 MCH 26.6 pg (25.0-35.0) 10/07/18 06:00 MCHC 31.5 g/dl (31.0-37.0) 10/07/18 06:00 RDW 14.2 % (11.5-14.5) 10/07/18 06:00 Plt Count 249 10^3/uL (120.0-450.0) 10/07/18 06:00 MPV 9.6 fl (7.0-11.0) 10/07/18 06:00 Gran % 74.9 % (50.0-68.0) H 10/07/18 06:00 Lymph % (Auto) 21.2 % (22.0-35.0) L 10/07/18 06:00 [place] % (Auto) 3.8 % (1.0-6.0) 10/07/18 06:00 Eos % (Auto) 0.1 % (1.5-5.0) L 10/07/18 06:00 Baso % (Auto) 0.0 % (0.0-3.0) 10/07/18 06:00 Gran # 6.09 (1.4-6.5) 10/07/18 06:00 Lymph # (Auto) 1.7 (1.2-3.4) 10/07/18 06:00 [place] # (Auto) 0.3 (0.1-0.6) 10/07/18 06:00 Eos # (Auto) 0.0 (0.0-0.7) 10/07/18 06:00 Baso # (Auto) 0.00 K/mm3 (0.0-2.0) 10/07/18 06:00 Retic Count 1.24 % (0.5-1.5) 10/04/18 08:00 PT 19.2 SECONDS (9.4-12.5) H 10/03/18 19:40 INR 1.67 10/03/18 19:40 APTT 37.9 Seconds (25.1-36.5) H 10/03/18 19:40 pCO2 53 mm/Hg (35-45) H 10/05/18 06:09 pO2 121.0 mm/Hg (80-100) H 10/05/18 06:09 HCO3 25.5 mmol/L (21-28) 10/05/18 06:09 ABG pH 7.29 (7.35-7.45) L 10/05/18 06:09 ABG Total CO2 27.1 mmol.L (22-28) 10/05/18 06:09 ABG O2 Saturation 97.1 % (95-98) 10/05/18 06:09 ABG O2 Content 14.2 ML/dl (15-23) L 10/05/18 06:09 ABG Base Excess -1.5 mmol/L (-2.0-3.0) 10/05/18 06:09 ABG Hemoglobin 10.3 g/dL (11.7-17.4) L 10/05/18 06:09 ABG Carboxyhemoglobin 0.1 % (0.5-1.5) L 10/05/18 06:09 POC ABG HHb (Measured) 2.9 % (0-5) 10/05/18 06:09 ABG Methemoglobin 0.2 % (0.0-3.0) 10/05/18 06:09 ABG O2 Capacity 14.6 mL/dl (16-24) L 10/05/18 06:09 VBG pH 7.42 (7.32-7.43) 10/04/18 19:00 VBG pCO2 44.0 (40-60) 10/04/18 19:00 VBG HCO3 28.5 mmol/l (21-28) H 10/04/18 19:00 VBG Total CO2 29.9 mmol.L (22-28) H 10/04/18 19:00 VBG O2 Sat (Calc) 95.7 % (40-65) H 10/04/18 19:00 VBG Base Excess 3.4 mmol/L (0.0-2.0) H 10/04/18 19:00 VBG Potassium 3.7 mmol/L (3.6-5.2) 10/04/18 19:00 Hgb O2 Saturation 96.7 % (95.0-98.0) 10/05/18 06:09 Sodium 137.0 mmol/L (132-148) 10/04/18 19:00 Chloride 102.0 mmol/L (98-107) 10/04/18 19:00 Glucose 288 mg/dl (65-105) H 10/04/18 19:00 Lactate 1.3 mmol/L (0.7-2.1) 10/04/18 19:00 FiO2 100.0 % 10/05/18 06:09 Sodium 139 mmol/L (132-148) 10/07/18 06:00 Potassium 3.4 mmol/L (3.6-5.0) L 10/07/18 06:00 Chloride 99 mmol/L (98-107) 10/07/18 06:00 Carbon Dioxide 34 mmol/L (21-33) H 10/07/18 06:00 Anion Gap 8 (10-20) L 10/07/18 06:00 BUN 24 mg/dL (7-21) H 10/07/18 06:00 Creatinine 0.9 mg/dl (0.7-1.2) 10/07/18 06:00 Est GFR ( Amer) > 60 10/07/18 06:00 Est GFR (Non-Af Amer) > 60 10/07/18 06:00 POC Glucose (mg/dL) 316 mg/dL (65-110) H 10/07/18 16:30 Random Glucose 126 mg/dL (70-110) H 10/07/18 06:00 Calcium 8.6 mg/dL (8.4-10.5) 10/07/18 06:00 Phosphorus 3.8 mg/dL (2.5-4.5) 10/04/18 19:00 Magnesium 2.6 mg/dL (1.7-2.2) H 10/06/18 08:30 Iron 44 ug/dL (45-180) L 10/04/18 08:00 TIBC 352 ug/dL (265-497) 10/04/18 08:00 % Saturation 12 % (20-55) L 10/04/18 08:00 Total Bilirubin 0.4 mg/dL (0.2-1.3) 10/07/18 06:00 AST 53 U/L (14-36) H 10/07/18 06:00 ALT 37 U/L (7-56) 10/07/18 06:00 Alkaline Phosphatase 47 U/L (38-126) 10/07/18 06:00 Troponin I 0.03 ng/mL D 10/04/18 19:00 NT-Pro-B Natriuret Pep 953 pg/mL (0-450) H 10/03/18 19:40 Total Protein 6.0 g/dL (5.8-8.3) 10/07/18 06:00 Albumin 3.3 g/dL (3.0-4.8) 10/07/18 06:00 Globulin 2.7 gm/dL 10/07/18 06:00 Albumin/Globulin Ratio 1.2 (1.1-1.8) 10/07/18 06:00 Lipase 36 U/L (23-300) 10/03/18 19:40 Procalcitonin 0.96 NG/ML (0.19-0.49) H 10/05/18 08:00 TSH 3rd Generation 0.92 mIU/mL (0.46-4.68) 10/04/18 08:00 Venous Blood Potassium 3.7 mmol/L (3.6-5.2) 10/04/18 19:00 Urine Color Light yellow (YELLOW) 10/03/18 21:48 Urine Appearance Clear (CLEAR) 10/03/18 21:48 Urine pH 6.0 (4.7-8.0) 10/03/18 21:48 Ur Specific [place] 1.010 (1.005-1.035) 10/03/18 21:48 Urine Protein Negative mg/dL (<30 mg/dL) 10/03/18 21:48 Urine Glucose (UA) Negative mg/dL (NEGATIVE) 10/03/18 21:48 Urine Ketones Negative mg/dL (NEGATIVE) 10/03/18 21:48 Urine Blood Trace-intact (NEGATIVE) H 10/03/18 21:48 Urine Nitrate Negative (NEGATIVE) 10/03/18 21:48 Urine Bilirubin Negative (NEGATIVE) 10/03/18 21:48 Urine Urobilinogen 0.2 E.U./dL (<1 E.U./dL) 10/03/18 21:48 Ur Leukocyte Esterase Negative Faina/uL (NEGATIVE) 10/03/18 21:48 Urine RBC 0 - 2 /hpf (0-2) 10/03/18 21:48 Urine WBC 0 - 2 /hpf (0-6) 10/03/18 21:48 Ur Epithelial Cells None /hpf (0-5) 10/03/18 21:48 Influenza Typ A,B (EIA) Pos for influenza a (NEGATIVE) H 10/04/18 19:30 Attending/Attestation - Attestation I have personally seen and examined this patient.: Yes I have fully participated in the care of the patient.: Yes I have reviewed all pertinent clinical information, including history, physical exam and plan: Yes Notes (Text): Please note this DC summary is for 10/07/18 Patient seen and examined by me with resident 9:20 AM and prior to discharge on 10/07/18. Case including discharge plan discussed with resident. Agree with above with following additions/corrections. Patient is a 73-year-old female past medical history significant for hypertension, type 2 diabetes, hyperlipidemia, and atrial fibrillation on Eliquis that presented to the emergency room with 5 days of difficulty swallowing that has been progressively getting worse. Please see H&P for full details. Patient was admitted with dysphagia, DM2, hypertension, hyperlipidemia, le ukocytosis, atrial fibrillation, and CVA. CT neck per radiologist showed no acute findings related to/accounting for clinical presentation. CT abd/pelvis per radiologist showed no acute findings relating to/accounting for clinical presentation; dilated common bile duct of uncertain etiology or significance; pelvic mass either originating with the uterus or left adnexa. Chest x-ray 10/05/2018 per radiologist showed variable pattern a diffusely increased reticular changes and right-sided pulmonary opacity are identified suspicious for potential atypical pneumonitis or possible pulmonary vascular congestion. Chest x-ray 10/07/2018 per radiology showed no active disease. Patient was found to be influenza A+ with likely underlying community-acquired pneumonia. She was followed by infectious disease doctor. Patient was continued on Tamiflu and Zosyn. Blood cultures show no growth. She also was initially hypoxemic and was maintained on O2 via nasal cannula as needed. Patient was also treated with nebulizer treatments. Patient also had atrial fibrillation with RVR. She was continued on Coreg and Cardizem. Patient was then found to have periods of bradycardia. Coreg was stopped and Cardizem dosing was decreased by quality technician. Patient was continued on Eliquis. Patient was seen by c iron worker for dysphagia. Records Management Associate recommended further workup and barium swallow as an outpatient. Patient was maintained on a dysphagia diet as per speech and swallow. Patient was also continued on Norvasc, lisinopril, and Cardizem for hypertension. Patient was continued on insulin sliding scale, glipizide, and lispro for diabetes. Patient was continued on gabapentin and Elavil for history of neuropathy. Patient was continued on Lipitor for hypercholesterolemia. Patient was also found have a pelvic mass seen on CT abdomen and pelvis. Patient with a history of incontinence. Unable to get pelvic ultrasound this patient would need her bladder to be full and has urinary incontinence. Patient was advised that she will need outpatient follow-up with a pile header or urologist for further testing and treatment. BNP was 953. Procan calcitonin was 0.93. Patient had leukocytosis of 11.2 on admission and resolved to 8.1 on discharge. Urine culture was positive for Enterococcus faecalis. She was continued on Zosyn for this. Patient was to complete course with Augmentin as an outpatient for 2 more days. Patient also had 2 more days of Tamiflu left upon discharge to be completed as an outpatient. Case was discussed with all consultants. Patient was cleared for discharge by all consultants. Patient was seen by physical therapy who recommended subacute rehabilitation. Patient was discharged to subacute rehabilitation. On day of discharge, patient stated she was feeling much better. Cough is improved. Patient denies any shortness of breath or palpitations. No nausea, vomiting, or abdominal pain. No headache or dizziness. No change in vision or light headedness. No fevers or chills. No palpitations. Physical exam: General: Awake and alert sitting up in bed in no acute distress HEENT: Normocephalic, atraumatic. Extraocular muscles intact, pupils equal and reactive, no scleral icterus. Oropharynx is pink and moist. No pharyngeal erythema or exudate appreciated. Neck is supple. Cardiovascular: Irregularly irregular rhythm.No murmurs, rubs, or gallops appreciated Pulmonary: Normal respiratory effort. Improved breath sounds. No rales or wheezing appreciated. Gastrointestinal: Soft, nondistended. Nontender. Positive bowel sounds all 4 quadrants. No guarding. Musculoskeletal: Moves all extremities. No calf tenderness. No edema appreciated. Central nervous system: AAOx 2, not oriented to time. Dermatologic: Skin warm and dry. Please see chart for full details. Follow up instructions: Patient to follow-up with primary care doctor within 3-5 days of discharge. Patient will need repeat blood work and chest x-ray for resolution of pneumonia. Patient to follow-up with c iron worker within 1 week of discharge. Patient to follow-up with quality technician within 1 week of discharge. It is very important to patient follow-up with pile header radiologist for pelvic ultrasound within 1 week of discharge from subacute rehabilitation. Patient to continue pured diet with thin liquids. Patient to take medications as prescribed. All instructions explained to the patient in detail. Patient both understands and agrees to all instructions. Written instructions also given. Time spent in discharging the patient including chart review, medication reconciliation, discussion with the patient, biomedical engineering technologist, consultants, and nursing staff was approximately 40 minutes.
[2018-10-07 17:35] VITALS: BP 141/68; PULSE 76; RESP 18; TEMP 99.8
== END 2018-10-07 19:18 | DRG 194 ==
LOC: ED 19:15 → ERH 21:48 → 2RNO 22:57
PROVIDERS: ADMIT Hospitalist; ATTEND Hospitalist
DX: J10.00 Influenza due to other identified influenza virus with unspecified type of pneumonia (principal); G93.40 Encephalopathy, unspecified; R13.10 Dysphagia, unspecified; I48.2 Chronic atrial fibrillation; D72.829 Elevated white blood cell count, unspecified; E11.40 Type 2 diabetes mellitus with diabetic neuropathy, unspecified; E78.00 Pure hypercholesterolemia, unspecified; E78.5 Hyperlipidemia, unspecified; I10 Essential (primary) hypertension; K21.9 Gastro-esophageal reflux disease without esophagitis; K52.9 Noninfective gastroenteritis and colitis, unspecified; K83.8 Other specified diseases of biliary tract; R09.02 Hypoxemia; R32 Unspecified urinary incontinence; R63.3 Feeding difficulties; Z78.9 Other specified health status; Z79.01 Long term (current) use of anticoagulants; Z79.4 Long term (current) use of insulin; Z86.73 Personal history of transient ischemic attack (TIA), and cerebral infarction without residual deficits; R19.00 Intra-abdominal and pelvic swelling, mass and lump, unspecified site; D64.9 Anemia, unspecified